=== PATIENT | female | born 1970 | race Asian ===

== ENCOUNTER 2016-06-03 07:32 | Emergency (ER) | payer BC, OTHER ==
[~2016-06-03] VITALS: Ht 154.9 cm; Wt 61.2 kg
[2016-06-03 07:48] VITALS: BP 150/100
[2016-06-03] MEDS ORDERED: IBUPROFEN 600 MG TABLET PO ONE ×2 (08:08→08:30)
== END 2016-06-03 08:14 | disposition home or self-care (01) ==
LOC: ER 07:38
DX: S16.1XXA Strain of muscle, fascia and tendon at neck level, initial encounter (principal); V43.52XA Car driver injured in collision with other type car in traffic accident, initial encounter; Y93.89 Activity, other specified; Y92.488 Other paved roadways as the place of occurrence of the external cause; Y99.9 Unspecified external cause status
CPT/HCPCS: 99282; A4606; Z7610

== ENCOUNTER 2017-04-30 07:21 | Outpatient (CLI) | payer BC ==
[2017-04-30 08:35] LABS: BASOPHILS % (AUTO) 0.4 % (0.0-2.0); EOSINOPHILS # (AUTO) 0.3 /CMM (0.0-0.7); EOSINOPHILS % (AUTO) 3.5 % (0.0-6.0); HEMATOCRIT 41 % (33-45); HEMOGLOBIN 13.4 g/dL (11.5-14.8); LYMPHOCYTES # (AUTO) 2.1 /CMM (0.8-4.8); LYMPHOCYTES % (AUTO) 20.7 % (20.0-44.0); MEAN CORPUSCULAR HEMOGLOBIN 29 PG (26.0-33.0); MEAN CORPUSCULAR HGB CONC 33 g/dl (31.0-36.0); MEAN CORPUSCULAR VOLUME 87 fL (82-100); MONOCYTES # (AUTO) 0.7 /CMM (0.1-1.30); MONOCYTES % (AUTO) 6.7 % (2.0-12.0); NEUTROPHILS # (AUTO) 6.8 /CMM (1.8-8.9); NEUTROPHILS % (AUTO) 68.7 % (43.0-81.0); PLATELET COUNT (AUTO) 476 /CMM (150-450); RDW COEFFICIENT OF VARIATION 13.7 (11.5-15.0); WHITE BLOOD COUNT (AUTO) 9.9 K/uL (4.3-11.0)
[2017-04-30 09:15] LABS: APPEARANCE,URINE SL CLOUDY (CLEAR); BILIRUBIN,URINE NEGATIVE (NEGATIVE); BLOOD, URINE 3+ Ery/uL (NEGATIVE); COLOR,URINE YELLOW (YELLOW); KETONES,URINE NEGATIVE (NEGATIVE); LEUKOCYTE ESTERASE ,URINE 2+ (NEGATIVE); NITRITE, URINE NEGATIVE (NEGATIVE); PH,URINE 6.5 (5.0-8.0); PROTEIN,URINE TRACE mg/dl (NEGATIVE); UGLUCOSE NEGATIVE (NEGATIVE); UROBILINOGEN,URINE 0.2 EU/dL (0.2)
[2017-04-30 09:53] LABS: WBC,URINE 21-50 /HPF (0-3)
[2017-04-30 09:54] LABS: BACTERIA,URINE Few /HPF (None Seen); SQUAMOUS EPITHELIAL CELL,UR Moderate /HPF (None Seen)
[2017-04-30 11:02] LABS: THYROID STIMULATING HORMONE 1.972 uIU/mL (0.358-3.74)
[2017-04-30 11:14] LABS: ALBUMIN 3.6 g/dL (3.4-5.0); BILIRUBIN,TOTAL 0.3 mg/dL (0.2-1.0); CALCIUM, SERUM 8.8 mg/dL (8.5-10.1); CREATININE 0.9 mg/dL (0.6-1.3); POTASSIUM 3.9 mmol/L (3.5-5.1); TOTAL PROTEIN, SERUM 8.1 g/dL (6.4-8.2)
== END 2017-04-30 23:59 | disposition home or self-care (01) ==
LOC: LAB 07:21
PROVIDERS: ATTEND Family Medicine
DX: Z00.01 Encounter for general adult medical examination with abnormal findings (principal); Z11.59 Encounter for screening for other viral diseases; R94.6 Abnormal results of thyroid function studies; R79.89 Other specified abnormal findings of blood chemistry
CPT/HCPCS: 36415; 80053-TC; 80061-TC; 81000-TC; 84439-TC; 84443-TC; 85025-TC; 86803; 87086-TC

== ENCOUNTER 2017-06-02 07:40 | Outpatient (CLI) | payer BC ==
[2017-06-02 08:13] LABS: APPEARANCE,URINE SL CLOUDY (CLEAR); BILIRUBIN,URINE NEGATIVE (NEGATIVE); BLOOD, URINE 3+ Ery/uL (NEGATIVE); COLOR,URINE YELLOW (YELLOW); KETONES,URINE NEGATIVE (NEGATIVE); LEUKOCYTE ESTERASE ,URINE 2+ (NEGATIVE); NITRITE, URINE NEGATIVE (NEGATIVE); PH,URINE 6.5 (5.0-8.0); PROTEIN,URINE TRACE mg/dl (NEGATIVE); UGLUCOSE NEGATIVE (NEGATIVE); UROBILINOGEN,URINE 0.2 EU/dL (0.2)
[2017-06-02 08:23] LABS: BASOPHILS % (AUTO) 0.5 % (0.0-2.0); EOSINOPHILS # (AUTO) 0.3 /CMM (0.0-0.7); EOSINOPHILS % (AUTO) 3.2 % (0.0-6.0); HEMATOCRIT 41 % (33-45); HEMOGLOBIN 13.6 g/dL (11.5-14.8); LYMPHOCYTES # (AUTO) 2.1 /CMM (0.8-4.8); LYMPHOCYTES % (AUTO) 22.9 % (20.0-44.0); MEAN CORPUSCULAR HEMOGLOBIN 29 PG (26.0-33.0); MEAN CORPUSCULAR HGB CONC 33 g/dl (31.0-36.0); MEAN CORPUSCULAR VOLUME 87 fL (82-100); MONOCYTES # (AUTO) 0.5 /CMM (0.1-1.30); NEUTROPHILS # (AUTO) 6.2 /CMM (1.8-8.9); NEUTROPHILS % (AUTO) 68.4 % (43.0-81.0); PLATELET COUNT (AUTO) 437 /CMM (150-450); RDW COEFFICIENT OF VARIATION 14.3 (11.5-15.0); RED BLOOD CELL COUNT(AUTO) 4.71 MIL/uL (4.0-5.2)
[2017-06-02 08:38] LABS: RBC,URINE 21-50 /HPF (0-2)
[2017-06-02 08:39] LABS: BACTERIA,URINE Few /HPF (None Seen); SQUAMOUS EPITHELIAL CELL,UR Few /HPF (None Seen); WBC,URINE 21-50 /HPF (0-3)
== END 2017-06-02 23:59 | disposition home or self-care (01) ==
LOC: LAB 07:40
PROVIDERS: ATTEND Family Medicine
DX: D47.3 Essential (hemorrhagic) thrombocythemia (principal); R31.9 Hematuria, unspecified
CPT/HCPCS: 36415; 81000-TC; 85025-TC; 87086-TC

== ENCOUNTER 2017-06-08 07:48 | Outpatient (CLI) | payer BC | END 2017-06-08 23:59 | disposition home or self-care (01) | LOC: LAB 07:48 | PROVIDERS: ATTEND Family Medicine | DX: Z11.3 Encounter for screening for infections with a predominantly sexual mode of transmission (principal); R87.612 Low grade squamous intraepithelial lesion on cytologic smear of cervix (LGSIL) | CPT/HCPCS: 88142 ==

== ENCOUNTER 2017-06-26 07:27 | Outpatient (CLI) | payer BC ==
[2017-06-26 07:52] LABS: BASOPHILS % (AUTO) 0.5 % (0.0-2.0); EOSINOPHILS # (AUTO) 0.3 /CMM (0.0-0.7); HEMATOCRIT 39 % (33-45); HEMOGLOBIN 13.2 g/dL (11.5-14.8); LYMPHOCYTES # (AUTO) 1.7 /CMM (0.8-4.8); LYMPHOCYTES % (AUTO) 23.2 % (20.0-44.0); MEAN CORPUSCULAR HEMOGLOBIN 29 PG (26.0-33.0); MEAN CORPUSCULAR HGB CONC 34 g/dl (31.0-36.0); MEAN CORPUSCULAR VOLUME 86 fL (82-100); MONOCYTES # (AUTO) 0.4 /CMM (0.1-1.30); MONOCYTES % (AUTO) 5.7 % (2.0-12.0); NEUTROPHILS # (AUTO) 4.9 /CMM (1.8-8.9); NEUTROPHILS % (AUTO) 66.6 % (43.0-81.0); PLATELET COUNT (AUTO) 409 /CMM (150-450); RDW COEFFICIENT OF VARIATION 14.3 (11.5-15.0); RED BLOOD CELL COUNT(AUTO) 4.55 MIL/uL (4.0-5.2); WHITE BLOOD COUNT (AUTO) 7.4 K/uL (4.3-11.0)
[2017-06-26 08:27] LABS: CREATININE 0.9 mg/dL (0.6-1.3)
[2017-06-26] MEDS ORDERED: IOHEXOL-300 100 ML VIAL IV ONE (08:53)
[2017-06-26] MEDS ORDERED: IV NS 0.9% 500 ML IV ONE (08:53)
== END 2017-06-26 23:59 | disposition home or self-care (01) ==
LOC: CT 07:27
PROVIDERS: ATTEND Family Medicine
DX: N13.30 Unspecified hydronephrosis (principal); N20.0 Calculus of kidney; D47.3 Essential (hemorrhagic) thrombocythemia
CPT/HCPCS: 36415; 74178; 82565; 84520; 85025; J7040; Q9967

== ENCOUNTER 2017-07-22 07:39 | Outpatient (CLI) | payer BC ==
[2017-07-27 09:36] LABS: SODIUM URINE, 24HR CALC 141 mmol/24H (40-220)
[2017-07-27 09:37] LABS: CHLORIDE U,24HR CALC 145 mmol/24H (110-250); POTASSIUM RNDM,URINE 16 mmol/L (25-125); POTASSIUM U,24HR CALC 35 mmol/24H (25-125)
== END 2017-07-22 23:59 | disposition home or self-care (01) ==
LOC: LAB 07:39
PROVIDERS: ATTEND Family Medicine
DX: N20.0 Calculus of kidney (principal)
CPT/HCPCS: 36415; 84133-TC; 84550-TC

== ENCOUNTER 2017-12-22 07:27 | Outpatient (CLI) | payer BC | END 2017-12-22 23:59 | disposition home or self-care (01) | LOC: LAB 07:27 | DX: N39.0 Urinary tract infection, site not specified (principal) | CPT/HCPCS: 87086-TC ==

== ENCOUNTER 2018-01-12 07:32 | Outpatient (CLI) | payer BC ==
[2018-01-12 08:06] LABS: BASOPHILS % (AUTO) 0.4 % (0.0-2.0); EOSINOPHILS % (AUTO) 4.5 % (0.0-6.0); HEMATOCRIT 42 % (33-45); HEMOGLOBIN 13.6 g/dL (11.5-14.8); LYMPHOCYTES # (AUTO) 1.6 /CMM (0.8-4.8); MEAN CORPUSCULAR HEMOGLOBIN 29 PG (26.0-33.0); MEAN CORPUSCULAR HGB CONC 32 g/dl (31.0-36.0); MEAN CORPUSCULAR VOLUME 89 fL (82-100); MONOCYTES # (AUTO) 0.5 /CMM (0.1-1.30); MONOCYTES % (AUTO) 6.4 % (2.0-12.0); NEUTROPHILS # (AUTO) 4.8 /CMM (1.8-8.9); NEUTROPHILS % (AUTO) 66.7 % (43.0-81.0); PLATELET COUNT (AUTO) 450 /CMM (150-450); RDW COEFFICIENT OF VARIATION 14.2 (11.5-15.0); RED BLOOD CELL COUNT(AUTO) 4.71 MIL/uL (4.0-5.2); WHITE BLOOD COUNT (AUTO) 7.2 K/uL (4.3-11.0)
[2018-01-12 08:23] LABS: ALBUMIN 3.4 g/dL (3.4-5.0); BILIRUBIN,TOTAL 0.3 mg/dL (0.2-1.0); CALCIUM, SERUM 8.1 mg/dL (8.5-10.1); CREATININE 0.8 mg/dL (0.6-1.3); POTASSIUM 3.7 mmol/L (3.5-5.1); TOTAL PROTEIN, SERUM 7.5 g/dL (6.4-8.2)
[2018-01-12 08:32] LABS: THYROID STIMULATING HORMONE 2.377 uIU/mL (0.358-3.74)
== END 2018-01-12 23:59 | disposition home or self-care (01) ==
LOC: LAB 07:32
PROVIDERS: ATTEND Family Medicine
DX: E78.2 Mixed hyperlipidemia (principal); E55.9 Vitamin D deficiency, unspecified
CPT/HCPCS: 36415; 80053-TC; 80061-TC; 82306; 84439-TC; 84443-TC; 85025-TC

== ENCOUNTER 2018-02-05 08:29 | Outpatient (CLI) | payer BC ==
[2018-02-05 09:45] LABS: BASOPHILS % (AUTO) 0.7 % (0.0-2.0); EOSINOPHILS % (AUTO) 3.6 % (0.0-6.0); HEMATOCRIT 43 % (33-45); HEMOGLOBIN 13.5 g/dL (11.5-14.8); LYMPHOCYTES # (AUTO) 1.5 /CMM (0.8-4.8); LYMPHOCYTES % (AUTO) 22.8 % (20.0-44.0); MEAN CORPUSCULAR HEMOGLOBIN 29 PG (26.0-33.0); MEAN CORPUSCULAR HGB CONC 32 g/dl (31.0-36.0); MEAN CORPUSCULAR VOLUME 89 fL (82-100); MONOCYTES # (AUTO) 0.4 /CMM (0.1-1.30); NEUTROPHILS # (AUTO) 4.2 /CMM (1.8-8.9); NEUTROPHILS % (AUTO) 65.9 % (43.0-81.0); PLATELET COUNT (AUTO) 416 /CMM (150-450); RDW COEFFICIENT OF VARIATION 13.7 (11.5-15.0); RED BLOOD CELL COUNT(AUTO) 4.75 MIL/uL (4.0-5.2); WHITE BLOOD COUNT (AUTO) 6.4 K/uL (4.3-11.0)
[2018-02-05 10:01] LABS: APPEARANCE,URINE SL CLOUDY (CLEAR); BILIRUBIN,URINE NEGATIVE (NEGATIVE); BLOOD, URINE 3+ Ery/uL (NEGATIVE); COLOR,URINE YELLOW (YELLOW); KETONES,URINE NEGATIVE (NEGATIVE); LEUKOCYTE ESTERASE ,URINE 2+ (NEGATIVE); NITRITE, URINE NEGATIVE (NEGATIVE); PH,URINE 6.5 (5.0-8.0); PROTEIN,URINE 1+ mg/dl (NEGATIVE); UGLUCOSE NEGATIVE (NEGATIVE); UROBILINOGEN,URINE 0.2 EU/dL (0.2)
[2018-02-05 10:03] LABS: ALBUMIN 3.5 g/dL (3.4-5.0); CALCIUM, SERUM 8.9 mg/dL (8.5-10.1); CREATININE 0.9 mg/dL (0.6-1.3); INR 0.91 (0.87-1.13); POTASSIUM 3.7 mmol/L (3.5-5.1); TOTAL PROTEIN, SERUM 7.6 g/dL (6.4-8.2)
[2018-02-05 10:28] LABS: SQUAMOUS EPITHELIAL CELL,UR Moderate /HPF (None Seen)
[2018-02-05 10:29] LABS: BACTERIA,URINE Moderate /HPF (None Seen)
[2018-02-05 10:30] LABS: WBC,URINE 21-50 /HPF (0-3)
[2018-02-05 10:31] LABS: BILIRUBIN,TOTAL 0.3 mg/dL (0.2-1.0)
== END 2018-02-05 23:59 | disposition home or self-care (01) ==
LOC: LAB 08:29
PROVIDERS: ATTEND Family Medicine
DX: Z01.818 Encounter for other preprocedural examination (principal)
CPT/HCPCS: 36415; 71046; 80053-TC; 81000-TC; 85025-TC; 85730-TC; 87086-TC

== ENCOUNTER 2020-01-10 07:55 | Outpatient (CLI) | payer BC ==
[2020-01-10 08:31] LABS: BASOPHILS # (AUTO) 0.1 /CMM (0.0-0.2); BASOPHILS % (AUTO) 0.6 % (0.0-2.0); EOSINOPHILS % (AUTO) 1.2 % (0.0-6.0); HEMATOCRIT 40 % (33-45); HEMOGLOBIN 12.8 g/dL (11.5-14.8); LYMPHOCYTES # (AUTO) 1.2 /CMM (0.8-4.8); LYMPHOCYTES % (AUTO) 10.7 % (20.0-44.0); MEAN CORPUSCULAR HGB CONC 32 g/dl (31.0-36.0); MEAN CORPUSCULAR VOLUME 86 fL (82-100); MONOCYTES # (AUTO) 0.8 /CMM (0.1-1.30); MONOCYTES % (AUTO) 7.1 % (2.0-12.0); NEUTROPHILS # (AUTO) 8.7 /CMM (1.8-8.9); NEUTROPHILS % (AUTO) 80.4 % (43.0-81.0); PLATELET COUNT (AUTO) 531 /CMM (150-450); RED BLOOD CELL COUNT(AUTO) 4.62 MIL/uL (4.0-5.2); WHITE BLOOD COUNT (AUTO) 10.8 K/uL (4.3-11.0)
[2020-01-10 09:51] LABS: THYROID STIMULATING HORMONE 2.101 uIU/mL (0.358-3.74)
[2020-01-11 10:11] LABS: FOLIC ACID 9.3 ng/mL (>3.0)
== END 2020-01-10 23:59 | disposition home or self-care (01) ==
LOC: LAB 07:55
PROVIDERS: ATTEND Family Medicine
DX: E78.5 Hyperlipidemia, unspecified (principal); E55.9 Vitamin D deficiency, unspecified; R73.9 Hyperglycemia, unspecified
CPT/HCPCS: 36415; 80061-TC; 82306; 84439-TC; 84443-TC; 85025-TC

== ENCOUNTER 2020-01-24 08:14 | Outpatient (CLI) | payer BC ==
[2020-01-24 09:30] LABS: BASOPHILS % (AUTO) 0.2 % (0.0-2.0); EOSINOPHILS % (AUTO) 0.4 % (0.0-6.0); HEMATOCRIT 41 % (33-45); HEMOGLOBIN 12.7 g/dL (11.5-14.8); LYMPHOCYTES # (AUTO) 1.2 /CMM (0.8-4.8); LYMPHOCYTES % (AUTO) 7.2 % (20.0-44.0); MEAN CORPUSCULAR HGB CONC 31 g/dl (31.0-36.0); MEAN CORPUSCULAR VOLUME 85 fL (82-100); MONOCYTES # (AUTO) 0.9 /CMM (0.1-1.30); MONOCYTES % (AUTO) 5.2 % (2.0-12.0); NEUTROPHILS # (AUTO) 14.4 /CMM (1.8-8.9); PLATELET COUNT (AUTO) 513 /CMM (150-450); RED BLOOD CELL COUNT(AUTO) 4.79 MIL/uL (4.0-5.2); WHITE BLOOD COUNT (AUTO) 16.5 K/uL (4.3-11.0)
[2020-01-24 09:55] LABS: ALBUMIN 2.8 g/dL (3.4-5.0); BILIRUBIN,TOTAL 0.5 mg/dL (0.2-1.0); CALCIUM, SERUM 8.2 mg/dL (8.5-10.1); CREATININE 0.8 mg/dL (0.6-1.3); POTASSIUM 3.8 mmol/L (3.5-5.1); TOTAL PROTEIN, SERUM 7.7 g/dL (6.4-8.2)
[2020-01-24 10:16] LABS: APPEARANCE,URINE CLEAR (CLEAR); BILIRUBIN,URINE NEGATIVE (NEGATIVE); BLOOD, URINE NEGATIVE Ery/uL (NEGATIVE); COLOR,URINE YELLOW (YELLOW); KETONES,URINE NEGATIVE (NEGATIVE); LEUKOCYTE ESTERASE ,URINE NEGATIVE (NEGATIVE); NITRITE, URINE NEGATIVE (NEGATIVE); PROTEIN,URINE 30 mg/dl (NEGATIVE); UGLUCOSE NEGATIVE (NEGATIVE); UROBILINOGEN,URINE 0.2 EU/dL (0.2)
[2020-01-24 11:00] LABS: BACTERIA,URINE None seen /HPF (None Seen); RBC,URINE 0-2 /HPF (0-2); SQUAMOUS EPITHELIAL CELL,UR Few /HPF (None Seen); WBC,URINE 0-2 /HPF (0-3)
== END 2020-01-24 23:59 | disposition home or self-care (01) ==
LOC: LAB 08:14
PROVIDERS: ATTEND Family Medicine
DX: E78.2 Mixed hyperlipidemia (principal); R10.9 Unspecified abdominal pain; R19.7 Diarrhea, unspecified
CPT/HCPCS: 36415; 80053-TC; 80061-TC; 81000-TC; 82150-TC; 83690-TC; 85025-TC; 86677

== ENCOUNTER 2020-02-02 09:15 | Outpatient (CLI) | payer BC ==
[2020-02-02 09:52] LABS: BASOPHILS % (AUTO) 0.3 % (0.0-2.0); EOSINOPHILS % (AUTO) 0.6 % (0.0-6.0); HEMATOCRIT 40 % (33-45); HEMOGLOBIN 12.7 g/dL (11.5-14.8); LYMPHOCYTES % (AUTO) 7.8 % (20.0-44.0); MEAN CORPUSCULAR HGB CONC 32 g/dl (31.0-36.0); MEAN CORPUSCULAR VOLUME 85 fL (82-100); MONOCYTES # (AUTO) 0.9 /CMM (0.1-1.30); NEUTROPHILS # (AUTO) 10.5 /CMM (1.8-8.9); NEUTROPHILS % (AUTO) 84.3 % (43.0-81.0); PLATELET COUNT (AUTO) 518 /CMM (150-450); RED BLOOD CELL COUNT(AUTO) 4.71 MIL/uL (4.0-5.2); WHITE BLOOD COUNT (AUTO) 12.4 K/uL (4.3-11.0)
[2020-02-02] MEDS ORDERED: IOHEXOL-350 100 ML VIAL IV ONE (09:58)
[2020-02-02] MEDS ORDERED: IV NS 0.9% 250 ML IV ONE (09:59)
[2020-02-02 10:07] LABS: CALCIUM, SERUM 8.4 mg/dL (8.5-10.1); CREATININE 0.8 mg/dL (0.6-1.3); POTASSIUM 3.8 mmol/L (3.5-5.1)
== END 2020-02-02 23:59 | disposition home or self-care (01) ==
LOC: LAB 09:15
PROVIDERS: ATTEND Family Medicine
DX: K80.20 Calculus of gallbladder without cholecystitis without obstruction (principal); N28.1 Cyst of kidney, acquired; N20.0 Calculus of kidney; N85.2 Hypertrophy of uterus; N85.4 Malposition of uterus; K76.0 Fatty (change of) liver, not elsewhere classified; J98.11 Atelectasis; I70.0 Atherosclerosis of aorta; M47.815 Spondylosis without myelopathy or radiculopathy, thoracolumbar region
CPT/HCPCS: 36415; 74177; 80048; 85025; J7050; Q9967

== ENCOUNTER 2020-02-06 10:41 | Outpatient (CLI) | payer BC ==
[2020-02-06 13:47] LABS: CALCIUM, SERUM 9.5 mg/dL (8.5-10.1); CREATININE 0.8 mg/dL (0.6-1.3)
== END 2020-02-06 23:59 | disposition home or self-care (01) ==
LOC: LAB 10:41
PROVIDERS: ATTEND Family Medicine
DX: R19.00 Intra-abdominal and pelvic swelling, mass and lump, unspecified site (principal)
CPT/HCPCS: 36415; 80048-TC

== ENCOUNTER 2020-02-07 08:30 | Outpatient (CLI) | payer BC ==
[2020-02-07] MEDS ORDERED: GADOTERATE MEGLUMINE 5 MMOL/10 ML VIAL IV ONE (08:31)
== END 2020-02-07 23:59 | disposition home or self-care (01) ==
LOC: MRI 08:30
PROVIDERS: ATTEND Family Medicine
DX: N85.2 Hypertrophy of uterus (principal); N20.0 Calculus of kidney; K76.89 Other specified diseases of liver
CPT/HCPCS: 72197; 74183; A9575

== ENCOUNTER 2020-02-10 14:17 | Inpatient (IN) | payer BC ==
[~2020-02-10] VITALS: Ht 154.9 cm; Wt 54.0 kg
--- NOTE | 2020-02-10 14:52 | NUR ---
U/S TECH AT BEDSIDE FOR PELVIC ULTRASOUND.
[2020-02-10 15:05] LABS: BASOPHILS % (AUTO) 0.3 % (0.0-2.0); EOSINOPHILS % (AUTO) 0.2 % (0.0-6.0); HEMATOCRIT 41 % (33-45); HEMOGLOBIN 13.2 g/dL (11.5-14.8); LYMPHOCYTES # (AUTO) 1.2 /CMM (0.8-4.8); LYMPHOCYTES % (AUTO) 7.5 % (20.0-44.0); MEAN CORPUSCULAR HGB CONC 32 g/dl (31.0-36.0); MEAN CORPUSCULAR VOLUME 84 fL (82-100); MONOCYTES # (AUTO) 1.3 /CMM (0.1-1.30); MONOCYTES % (AUTO) 7.7 % (2.0-12.0); NEUTROPHILS % (AUTO) 84.3 % (43.0-81.0); PLATELET COUNT (AUTO) 627 /CMM (150-450); RED BLOOD CELL COUNT(AUTO) 4.88 MIL/uL (4.0-5.2); WHITE BLOOD COUNT (AUTO) 16.6 K/uL (4.3-11.0)
--- NOTE | 2020-02-10 15:10 | NUR ---
CALLED NURSING SUP FOR M/S BED.
[2020-02-10 15:14] LABS: CALCIUM, SERUM 9.2 mg/dL (8.5-10.1); CARBON DIOXIDE 26 mmol/L (21-32); CHLORIDE 99 mmol/L (98-107); GLUCOSE 167 mg/dL (74-106); POTASSIUM 3.5 mmol/L (3.5-5.1); SODIUM SERUM 136 mmol/L (136-145); UREA NITROGEN, BLOOD 13 mg/dL (7-18)
[2020-02-10 15:20] LABS: ALANINE AMINOTRANSFERASE 14 U/L (12-78); ALBUMIN 2.9 g/dL (3.4-5.0); ALKALINE PHOSPHATASE 63 U/L (46-116); ASPARTATE AMINOTRANSFERASE 15 U/L (15-37); BILIRUBIN,DIRECT 0.1 mg/dL (0.0-0.2); BILIRUBIN,TOTAL 0.3 mg/dL (0.2-1.0); LIPASE 95 U/L (73-393); TOTAL PROTEIN, SERUM 8.4 g/dL (6.4-8.2)
--- NOTE | 2020-02-10 15:41 | NUR ---
NURSING SUP GAVE M/S BED [id number].
[2020-02-10] MEDS ORDERED: ENOXAPARIN SODIUM 30 MG/0.3 ML DISP.SYRIN SQ SCH (16:00)
[2020-02-10] MEDS ORDERED: MAGNESIUM HYDROXIDE 30 ML UDC PO PRN (16:00)
[2020-02-10] MEDS ORDERED: ONDANSETRON HCL/PF 4 MG/2 ML VIAL IVP PRN (16:00)
[2020-02-10] MEDS ORDERED: ACETAMINOPHEN 325 MG TABLET PO PRN (16:00)
[2020-02-10] MEDS ORDERED: HYDROCODONE/APAP 5/325MG TABLET PO PRN (16:00)
[2020-02-10] MEDS ORDERED: Z GUARD REMEDY 2 OZ OINT TP PRN (16:00)
[2020-02-10] MEDS ORDERED: MAG HYDROX/AL HYDROX/SIMETH 30 ML UDC PO PRN (16:00)
[2020-02-10] MEDS ORDERED: ZOLPIDEM TARTRATE 5 MG TABLET PO PRN (16:00)
--- NOTE | 2020-02-10 16:06 | NUR ---
DR CLAIRE QURESHI
--- NOTE | 2020-02-10 16:15 | NUR ---
REPORT GIVEN TO DAMIEN AT M/S AWAITNG TRANSFER TO FLOOR.
[2020-02-10] MEDS ORDERED: MORPHINE SULFATE INJ 2 MG/ML DISP.SYRIN IV PRN (16:30)
[2020-02-10 17:00] VITALS: BP 132/81
--- NOTE | 2020-02-10 17:00 | NUR ---
RN ADMITTING NOTES RECEIVED PATIENT VIA GURNEY FROM ER, A/OX4,ON ROOM AIR, TOLERATING WELL, NO SOB OR DISTRESS NOTED, DENIES PAIN OR DISCOMFORT AT THIS TIME, SKIN IS INTACT, IV LINE ON L AC NOTED, PATENT, FLUSHED AND INTACT. PATIENT IS AMBULATORY, NPO STATUS NOTED SAFETY MEASURES IN PLACE, CALL LIGHT IN REACH, BED IN LOWEST POSITION, WILL CONT TO MONITOR
[2020-02-10] MEDS ORDERED: ENOXAPARIN SODIUM 40 MG/0.4 ML DISP.SYRIN SQ SCH ×2 (17:10→21:00)
--- NOTE | 2020-02-10 18:06 | NUR ---
WILL HOLD LOVENOX PER FOLLOWING POSSIBLE COLONOSCOPY TOMORROW,
[2020-02-10] MEDS: IV NS 0.9% 1,000 ML IV PRN (18:07)
--- NOTE | 2020-02-10 19:14 | NUR ---
RN CLOSING NOTES Patient remains in bed, A?Ox4, tolerating IV hydration well, running NS @ 75cc/hr, patent and intact,safe and comfortable, safety measures in place, call light in reach, HOB elevated, bed in lowest position, will endorse to PM shift RN for XAVI
[2020-02-10 20:00] VITALS: BP 129/89
--- NOTE | 2020-02-10 20:00 | NUR ---
MS/RN OPENING NOTE Patient awake in bed. A/O x4, ambulatory. Breathing even, clear, unlabored. No signs of acute distress or SOB. No JVD. CRP <3seconds. Skin is warm pink, dry, appropriate for ethnicity, intact. IV site LAC 20g, patent and intact, no signs of infiltration or redness. Abdomen round, soft, non-tender. Patient is constipated. Patient is NPO per procedure. Patient voids via BRP, voiding clear yellow urine. Bed in low position, wheels locked, side rails up x2, call light within reach.
[2020-02-10] MEDS: VANCOMYCIN 1 GM in IV D5W 250 ML IV SCH (20:38)
[2020-02-10] MEDS: MEROPENEM 1 G in IV NS 0.9% 100 ML IV SCH (21:34)
--- NOTE | 2020-02-10 22:25 | NUR ---
MS/RN NOTE Patient developed redness and pruritis after 1 completed dose of vancomycin. IV infusion stopped. No SOB or respiratory distress noted. VS: BP 124/80 T98.9 P93 R17 L9flo73%. Dr. Call notified. Verbal order received: 1 dose 15mg benadryl and continue vancomycin. Order read back and confirmed by hospitalist. Will continue to monitor.
[2020-02-10] MEDS ORDERED: diphenhydrAMINE HCL 50 MG/ML VIAL IV PRN (22:30)
[2020-02-10 23:41] VITALS: BP 129/89
[2020-02-11] MEDS ORDERED: PIPERACILLIN /TAZOBACTAM 3.375 G in IV D5W 50 ML IV SCH ×2
[2020-02-11] MEDS: MEROPENEM 1 G in IV NS 0.9% 100 ML IV SCH ×3 (04:00→21:17)
--- NOTE | 2020-02-11 06:07 | NUR ---
MS/RN CLOSING NOTE Patient awake in bed. A/O x4, ambulatory. Breathing even, clear, unlabored. No signs of acute distress or SOB. IV site LAC 20g, patent and intact, no signs of infiltration or redness, running NS @ 75 ml/hr. Patient is constipated. Patient is NPO per procedure. Patient voids via BRP, voiding clear yellow urine 4x. Bed in low position, wheels locked, side rails up x2, call light within reach. Will endorse to oncoming nurse.
[2020-02-11 06:37] LABS: BASOPHILS % (AUTO) 0.3 % (0.0-2.0); EOSINOPHILS % (AUTO) 0.4 % (0.0-6.0); HEMATOCRIT 37 % (33-45); HEMOGLOBIN 11.7 g/dL (11.5-14.8); MEAN CORPUSCULAR HGB CONC 32 g/dl (31.0-36.0); MEAN CORPUSCULAR VOLUME 84 fL (82-100); MONOCYTES # (AUTO) 1.1 /CMM (0.1-1.30); MONOCYTES % (AUTO) 8.4 % (2.0-12.0); NEUTROPHILS # (AUTO) 10.8 /CMM (1.8-8.9); NEUTROPHILS % (AUTO) 82.9 % (43.0-81.0); PLATELET COUNT (AUTO) 544 /CMM (150-450); RED BLOOD CELL COUNT(AUTO) 4.44 MIL/uL (4.0-5.2)
[2020-02-11 07:27] LABS: ALBUMIN 2.3 g/dL (3.4-5.0); BILIRUBIN,TOTAL 0.2 mg/dL (0.2-1.0); CALCIUM, SERUM 7.9 mg/dL (8.5-10.1); CREATININE 0.8 mg/dL (0.6-1.3); MAGNESIUM 2.3 mg/dL (1.8-2.4); PHOSPHORUS 4.6 mg/dL (2.5-4.9); POTASSIUM 3.9 mmol/L (3.5-5.1); TOTAL PROTEIN, SERUM 6.9 g/dL (6.4-8.2)
--- NOTE | 2020-02-11 07:30 | NUR ---
RN OPENING NOTES Patient present in bed, A/Ox4, ambulatory, able to make needs know, on room air, no SOB or resp distress noted at this time,SPO2 is 98%, denies pain or discomfort. Patient is NPO due following CT scan procedure, tolerating well, receiving NS @75 cc/hr through IV line located on Left AC G20, patent, tolerating well, intact. Bowel sounds is hypoactive in four quadrants, denies BM today, complains of constipation. Consent form for CT scan in the chart. Safety measures in place, call light in reach, bed in lowest position, will continue to monitor
[2020-02-11 08:00] VITALS: BP 109/70
[2020-02-11] MEDS: IV NS 0.9% 1,000 ML IV PRN (12:57)
--- NOTE | 2020-02-11 13:07 | NUR ---
patient went to CT scan
--- NOTE | 2020-02-11 13:20 | NUR ---
Patient returned from CXT scan not done,per Radiology team, clarification need about possibility to perform rectal CT scan w contrast at [facility]
--- NOTE | 2020-02-11 13:48 | NUR ---
Sushant bruce at bed site explaining to patient rectal CT contract procedure
[2020-02-11] MEDS ORDERED: DIATR MEGLU/DIATRIZOATE SODIUM 120 ML BOTTLE (GASTROGRAPHIN) ONE (14:22)
--- NOTE | 2020-02-11 14:22 | NUR ---
Holding Vanco, patient is going to have CT scan, pharmacy aware
[2020-02-11] MEDS: VANCOMYCIN 1 GM in IV D5W 250 ML IV SCH (15:57)
[2020-02-11 16:00] VITALS: BP 121/84
--- NOTE | 2020-02-11 16:30 | NUR ---
IV line infiltrated, removed, will start new line
--- NOTE | 2020-02-11 16:45 | NUR ---
R hand IV line G22, intact and patent
--- NOTE | 2020-02-11 19:04 | NUR ---
RN CLOSING NOTES Patient remains in bed, A/Ox4, tolerating IV hydration well, running NS @ 75cc/hr, patent and intact,safe and comfortable. Patient is waiting for CT results, still NPO, since yesterday, called RADIOLOGY and ask to promote her results for translation in order to change her diet status, safety measures in place, call light in reach, HOB elevated, bed in lowest position, will endorse to PM shift RN for XAVI
[2020-02-11 20:00] VITALS: BP 134/89
--- NOTE | 2020-02-11 21:00 | NUR ---
RN NOTES PATIENT IN BED ALERT AND ORIENTED X4, STABLE ON ROOM AIR, NO COMPLAIN OF EPIGASTRIC PAIN, CT ABD/PELVIS COMPLETED WITH RESULTS POSTED. PATIENT IS NPO AND VERY HUNGRY NOW. NOTIFIED DR. SOFIA TO CHANGE DIET. NEW ORDER OF CLEAR LIQUID DIET. NO NAUSEA/VOMITING.
[2020-02-12] MEDS ORDERED: VANCOMYCIN 1 GM in IV D5W 250 ML IV SCH (02:00)
--- NOTE | 2020-02-12 03:03 | NUR ---
RN NOTES PATIENT HAD BM, STOOL IS SMALL AND SOFT AND FEATHERY. PATIENT REPORTED FEELING BETTER
[2020-02-12] MEDS: VANCOMYCIN 1 GM in IV D5W 250 ML IV SCH ×2 (03:37→16:13)
[2020-02-12] MEDS: MEROPENEM 1 G in IV NS 0.9% 100 ML IV SCH ×3 (04:59→20:00)
[2020-02-12] MEDS ORDERED: SORBITOL SOLUTION 30 ML PO ONE (06:00)
--- NOTE | 2020-02-12 06:15 | NUR ---
RN NOTES ALERT AND ORIENTED X4, ROOM AIR, NO EPIGASTRIC PAIN, CLEAR LIQUID DIET, TOLERATING, NO N/V, X3 SOFT STOOL, VOIDING WELL, NS AT 75 ML/HR, VANCOMYCIN AND MERREM IVPB, CT ABD/PELVIS AND US PELVIS DONE WITH RESULTS POSTED. FOR GYNECOLOGY CONSULT AND GI CONSULT FOR COLONOSCOPY.
[2020-02-12 06:57] LABS: BASOPHILS # (AUTO) 0.1 /CMM (0.0-0.2); BASOPHILS % (AUTO) 0.5 % (0.0-2.0); EOSINOPHILS % (AUTO) 1.5 % (0.0-6.0); HEMATOCRIT 36 % (33-45); HEMOGLOBIN 11.4 g/dL (11.5-14.8); LYMPHOCYTES # (AUTO) 1.2 /CMM (0.8-4.8); MEAN CORPUSCULAR HGB CONC 32 g/dl (31.0-36.0); MEAN CORPUSCULAR VOLUME 85 fL (82-100); MONOCYTES # (AUTO) 0.8 /CMM (0.1-1.30); MONOCYTES % (AUTO) 7.8 % (2.0-12.0); NEUTROPHILS # (AUTO) 8.5 /CMM (1.8-8.9); NEUTROPHILS % (AUTO) 79.2 % (43.0-81.0); PLATELET COUNT (AUTO) 527 /CMM (150-450); RED BLOOD CELL COUNT(AUTO) 4.25 MIL/uL (4.0-5.2); WHITE BLOOD COUNT (AUTO) 10.8 K/uL (4.3-11.0)
[2020-02-12 07:39] LABS: CALCIUM, SERUM 8.1 mg/dL (8.5-10.1); CREATININE 0.7 mg/dL (0.6-1.3); POTASSIUM 3.7 mmol/L (3.5-5.1)
[2020-02-12 08:00] VITALS: BP 117/76
--- NOTE | 2020-02-12 08:14 | NUR ---
MS/RN OPENING NOTES RECEIVED PATIENT ON BED. ALERT AND ORIENTED X 4. PATIENT IN NO APPARENT RESPIRATORY DISTRESS NOTED. PATIENT NO COMPLAINED OF PAIN AT THIS TIME. WILL CONTINUE TO MONITOR.
[2020-02-12] MEDS: IV NS 0.9% 1,000 ML IV PRN (09:35)
[2020-02-12 12:00] VITALS: BP 132/81
[2020-02-12 16:00] VITALS: BP 124/79
--- NOTE | 2020-02-12 16:04 | NUR ---
MS/RN NOTES JULIA (HOSE BUILDER) ORDER TO ADVANCE THE DIET, NOTED AND CARRIED OUT.
--- NOTE | 2020-02-12 18:42 | NUR ---
MS/RN NOTES DR. ALDANA ORDER NPO EXCEPT MEDS, 1 GAL GOLYTLY, 5MG REGLAN Q 4HOURS PRN R/T BOWEL PROBLEM, 120ML SORBITOL ONCE AT 6AM FOR CONSTIPATION, COLONOSCOPY CONSENT. NOTED AND CARRIED OUT.
[2020-02-12] MEDS ORDERED: METOCLOPRAMIDE HCL 10 MG/2 ML VIAL IV PRN (19:00)
[2020-02-12] MEDS ORDERED: PEG 3350/NA SULF,BICARB,CL/KCL 4,000 ML BOTTLE PO ONE (19:00)
--- NOTE | 2020-02-12 19:04 | NUR ---
MS/RN CLOSING NOTES PATIENT IS ON BED, ALERT AND ORIENTED X4. PATIENT DENIES PAIN AT THIS TIME. PATIENT IN NO APPARENT RESPIRATORY DISTRESS NOTED. IV ACCESS AT RIGHT HAND # 22G WITH IV FLUID OF NS 1L AT 75ML//HR ON AND INFUSING WELL. SEEN AN EXAMINED BY MD WITH ORDERS MADE AND CARRIED OUT. SAFETY PRECAUTION WAS IN PLACED. BED IN LOWEST POSITION. SIDE RAILS UP X2. ALL NEEDS WAS ATTENDED. CALL LIGHTS WITHIN REACH. COLONOSCOPY CONSENT WAS SIGN AND ATTACH TO CHART, COLONOSCOPY PROCEDURE AT 1130. WILL ENDORSED TO QUALITY ASSURANCE INTERN FOR XAVI.
--- NOTE | 2020-02-12 19:45 | NUR ---
MS RN OPENING NOTES PATIENT RECEIVED RESTING IN BED COMFORTABLY, A/OX4, BREATHING EVEN AND UNLABORED; TOLERATING ROOM AIR WELL; NO SOB NOTED; PATIENT ABLE TO MAKE NEEDS KNOWN; PATIENT AWARE SHE WILL BE NPO MIDNIGHT FOR COLONOSCOPY PROCEDURE 11:30 02/13/20; DR. PETERSEN AT BEDSIDE, RECTAL EXAM PERFORMED; PATIENT INFORMED POSSIBLE RECTAL CANCER; PER MD, AWAIT COLONOSCOPY RESULTS; ALL PATIENT'S QUESTIONS REGARDING COLONOSCOPY AND POSSIBLE CANCER, AND NEXT STEPS WERE ANSWERED BY MD AND PATIENT VERBALIZED UNDERSTANDING; PATIENT AWARE SHE HAS TO FINISH GOLYTELY PRIOR TO MIDNIGHT; SAFETY PRECAUTIONS IMPLEMENTED; BED LOCKED IN LOW POSITION; SIDE RAILSX2; CALL LIGHT WITHIN EASY REACH; WILL CONT TO MONITOR
[2020-02-12 20:00] VITALS: BP 149/93
--- NOTE | 2020-02-12 22:46 | NUR ---
MS RN NOTES SPOKE WITH DR. KWAME MC, PER MD, ORDERED CT CAP WITH CONTRAST AND MRI WITHOUT CONTRAST; MD ALSO SPOKE WITH PATIENT REGARDING PROCEDURES ORDERED; PATIENT VERBALIZED UNDERSTANDING; CONSENTS SIGNED
[2020-02-13] VITALS (7 sets, daily range): BP systolic 114–143; BP diastolic 76–88
[2020-02-13] MEDS: VANCOMYCIN 1 GM in IV D5W 250 ML IV SCH ×2 (03:06→16:41)
[2020-02-13] MEDS: MEROPENEM 1 G in IV NS 0.9% 100 ML IV SCH ×3 (04:49→21:46)
--- NOTE | 2020-02-13 06:18 | NUR ---
MS RN NOTES PATIENT R HAND # 22 IV SITE, MILD INFILTRATION/REDNESS NOTED; PATIENT DENIES PAIN; IV SITE REMOVED, TIP STILL INTACT; NEW IV ACCESS OBTAINED; L FA # 20, FLUSHING WELL; TOLERATING IVF WELL; WILL CONT TO MONITOR
[2020-02-13 07:01] LABS: BASOPHILS % (AUTO) 0.4 % (0.0-2.0); EOSINOPHILS % (AUTO) 3.4 % (0.0-6.0); HEMATOCRIT 38 % (33-45); HEMOGLOBIN 12.3 g/dL (11.5-14.8); LYMPHOCYTES # (AUTO) 1.1 /CMM (0.8-4.8); LYMPHOCYTES % (AUTO) 10.3 % (20.0-44.0); MEAN CORPUSCULAR HGB CONC 32 g/dl (31.0-36.0); MEAN CORPUSCULAR VOLUME 84 fL (82-100); MONOCYTES # (AUTO) 0.6 /CMM (0.1-1.30); MONOCYTES % (AUTO) 5.6 % (2.0-12.0); NEUTROPHILS # (AUTO) 8.3 /CMM (1.8-8.9); NEUTROPHILS % (AUTO) 80.3 % (43.0-81.0); PLATELET COUNT (AUTO) 536 /CMM (150-450); RED BLOOD CELL COUNT(AUTO) 4.53 MIL/uL (4.0-5.2); WHITE BLOOD COUNT (AUTO) 10.4 K/uL (4.3-11.0)
--- NOTE | 2020-02-13 07:04 | NUR ---
MS RN CLOSING NOTES PATIENT RESTING IN BED COMFORTABLY; A/OX4, BREATHING EVEN AND UNLABORED; NPO STATUS MAINTAINED FOR COLONOSCOPY PROCEDURE IN AM; WILL INFORM DAY SHIFT; PATIENT ABLE TO MAKE NEEDS KNOWN; L FA #20, INTACT AND PATENT; PATIENT AMBULATORY WITH STEADY GAIT; ALL NEEDS RENDERED; SAFETY PRECAUTIONS IMPLEMENTED; BED LOCKED IN LOW POSITION; SIDE RAILSX2; CALL LIGHT WITHIN EASY REACH; WILL ENDORSE XAVI TO ONCOMING SHIFT
[2020-02-13 07:17] LABS: CALCIUM, SERUM 8.3 mg/dL (8.5-10.1); CREATININE 0.7 mg/dL (0.6-1.3); POTASSIUM 3.8 mmol/L (3.5-5.1)
--- NOTE | 2020-02-13 07:55 | NUR ---
MS RON OPEN NOTES PATIENT IS A/O X 4 WITH NO SIGNS OF DISTRESS IN ROOM AIR. IV L FA #20G RUNNING NS AT 75ML/HR. WITH NO COMPLAIN OF PAIN AT THIS MOMENT. NPO CURRENTLY. SAFETY MEASURES ARE APPLIED, BED IS IN LOW AND LOCKED POSITION, SIDE RAILS UP X 2. CALL LIGHT WITHIN REACH. WILL CONTINUE TO MONITOR.
--- NOTE | 2020-02-13 12:20 | NUR ---
PATIENT LEFT TO OR. VIA GURNEY.
--- NOTE | 2020-02-13 14:45 | NUR ---
PATIENT RETURNED FROM OR VIA GURNEY A/O X 4 CALM WITH NO SIGNS IF DISTRESS IN ROOM AIR. NO COMPLAIN OF PAIN AT THIS TIME. SAFETY MEASURES APPLIED BED LOCKED , SIDE RAILS UP X 2 CALL LIGHT WITHIN REACH. WILL CONTINUE TO MONITOR.
--- NOTE | 2020-02-13 19:30 | NUR ---
MS RN CLOSE NOTES PATIENT IS A/O X 4 WITH NO SIGNS OF DISTRESS IN ROOM AIR. IV L FA #20G RUNNING NS AT 75ML/HR. WITH NO COMPLAIN OF PAIN AT THIS MOMENT. PATIENT REMAINED STABLE THROUGH OUT SHIFT. PATIENT KEPT CLEAN AND DRY. ALL NEEDS, CARE, TREATMENT AND MEDICATIONS ADMINISTERED ANTICIPATED PER ORDER. SAFETY MEASURES ARE APPLIED, BED IS LOW AND LOCKED. SIDE RAILS UP X 2 FOR SAFETY, CALL LIGHT WITHIN REACH. WILL ENDORSE TO THE NEXT ECLECTIC DOCTOR.
--- NOTE | 2020-02-13 19:35 | NUR ---
MS/RN OPENING NOTES: RECEIVED PT REPORT FROM ARIADNE MOSS FORM DAY SHIFT. PATIENT IS A/O X 4. VERBALLY RESPONSIVE AND ABLE TO MAKE NEEDS KNOWN. NO S/S OF ACUTE DISTRESS. NO C/O PAIN AT THIS TIME. NO SOB. TOLERATING ROOM AIR WELL. IV ON THE L FA #20G RUNNING NS AT 75ML/HR. SAFETY MEASURES ARE IN PLACE. BED IS LOW AND LOCKED. SIDE RAILS UP X 2 FOR SAFETY, CALL LIGHT WITHIN REACH. WILL KEEP MONITORING THROUGHOUT THE SHIFT.
[2020-02-13] MEDS: IV NS 0.9% 1,000 ML IV PRN (20:27)
[2020-02-14] MEDS: VANCOMYCIN 1 GM in IV D5W 250 ML IV SCH ×2 (04:00→18:06)
[2020-02-14] MEDS: MEROPENEM 1 G in IV NS 0.9% 100 ML IV SCH ×3 (05:00→20:15)
[2020-02-14 07:07] LABS: CARBOHYDRATE AG 19-9 <2 U/mL (0-35)
--- NOTE | 2020-02-14 07:40 | NUR ---
MS/RN CLOSING NOTES: PT REMAINS A/O X 4. VERBALLY RESPONSIVE. NO S/S OF ACUTE DISTRESS. NO C/O PAIN AT THIS TIME. NO SOB. TOLERATING ROOM AIR WELL. IV ON THE L FA #20G RUNNING NS AT 75ML/HR. SAFETY MEASURES ARE IN PLACE. BED IS LOW AND LOCKED. SIDE RAILS UP X 2 FOR SAFETY, CALL LIGHT WITHIN REACH. ALL NURSING NEEDS MET AND RENDERED. ALL DUE MEDS GIVEN ORDERED. ENDORSED TO DAY SHIFT FOR XAVI.
[2020-02-14 08:00] VITALS: BP 128/78
[2020-02-14 08:22] LABS: CALCIUM, SERUM 8.2 mg/dL (8.5-10.1); CREATININE 0.7 mg/dL (0.6-1.3); POTASSIUM 3.8 mmol/L (3.5-5.1)
--- NOTE | 2020-02-14 14:00 | NUR ---
NURSES NOTES Patient LT FA 20g IV painful and reddened. D/C line. New IV inserted in RT forearm 20g.
[2020-02-14 16:00] VITALS: BP 119/78
--- NOTE | 2020-02-14 19:20 | NUR ---
MS ARIADNE OPEN NOTES PATIENT IS LAYING IN BED WATCHING TV. A/O X4. ON RA, NO SOB/ ACUTE RESPIRATORY DISTRESS NOTED. IV IN R FOREARM #20G IS PATENT AND INTACT RUNNING NS @75MLS/HR. PATIENT DENIES ANY PAIN AT THE MOMENT. PT IS AMBULATORY. BED IS IN LOWEST LOCKED POSITION WITH SIDE RAILS UP X3, SEMI FOWLERS. CALL LIGHT IS WITHIN REACH. WILL CONTINUE TO MONITOR.
[2020-02-14 20:00] VITALS: BP 136/87
[2020-02-15] MEDS: VANCOMYCIN 1 GM in IV D5W 250 ML IV SCH (04:51)
[2020-02-15] MEDS: IV NS 0.9% 1,000 ML IV PRN (05:35)
[2020-02-15] MEDS: MEROPENEM 1 G in IV NS 0.9% 100 ML IV SCH ×2 (06:05→15:06)
--- NOTE | 2020-02-15 06:57 | NUR ---
MS RN CLOSE NOTES PATIENT IS LAYING IN BED. A/O X4. ON RA, NO SOB/ ACUTE RESPIRATORY DISTRESS NOTED. IV IN RIGHT FOREARM #20G IS PATENT AND INTACT RUNNING NS @ 75MLS/HR. ALL DUE ANTIBIOTICS GIVEN. PATIENT HAS NO COMPLAINTS OF PAIN. IS ABLE TO AMBULATE. BED IS IN LOWEST LOCKED POSITION WITH SIDE RAILS UP X2, SEMI FOWLERS. CALL LIGHT IS WITHIN REACH. WILL ENDORSE TO AM NURSE.
[2020-02-15 07:23] LABS: BASOPHILS # (AUTO) 0.1 /CMM (0.0-0.2); BASOPHILS % (AUTO) 0.6 % (0.0-2.0); HEMATOCRIT 36 % (33-45); HEMOGLOBIN 11.7 g/dL (11.5-14.8); LYMPHOCYTES # (AUTO) 1.3 /CMM (0.8-4.8); LYMPHOCYTES % (AUTO) 15.3 % (20.0-44.0); MEAN CORPUSCULAR HGB CONC 32 g/dl (31.0-36.0); MEAN CORPUSCULAR VOLUME 84 fL (82-100); MONOCYTES # (AUTO) 0.4 /CMM (0.1-1.30); MONOCYTES % (AUTO) 5.2 % (2.0-12.0); NEUTROPHILS # (AUTO) 6.5 /CMM (1.8-8.9); NEUTROPHILS % (AUTO) 75.9 % (43.0-81.0); PLATELET COUNT (AUTO) 545 /CMM (150-450); RED BLOOD CELL COUNT(AUTO) 4.33 MIL/uL (4.0-5.2); WHITE BLOOD COUNT (AUTO) 8.6 K/uL (4.3-11.0)
--- NOTE | 2020-02-15 07:40 | NUR ---
REPORT RECEIVED FROM ARIADNE LAMAR
[2020-02-15 07:50] LABS: CALCIUM, SERUM 8.3 mg/dL (8.5-10.1); CREATININE 0.7 mg/dL (0.6-1.3); POTASSIUM 3.6 mmol/L (3.5-5.1)
[2020-02-15 08:00] VITALS: BP 123/80
--- NOTE | 2020-02-15 12:00 | NUR ---
PATIENT AWAKE , ALERT, ORIENTED X4. NO COMPLAINS OF PAIN, SOB, OR DISCOMFORT AT THIS TIME. PATIENT AMBULATES TO THE BATHROOM WITH A STEADY GAIT AROUND EVERY 30 MIN.
[2020-02-15 16:00] VITALS: BP 123/80
--- NOTE | 2020-02-15 17:00 | NUR ---
PATIENT HAS A DISCHARGE ORDER HOME. EDUCATIONAL MATERIAL PROVIDED AND PATIENT EDUCATED ON HOME REGIMEN AND FOLLOW UP WITH PCP INSTRUCTIONS. PATIENT VERBALIZED UNDERSTANDING.
--- NOTE | 2020-02-15 17:40 | NUR ---
PATIENT STATED THAT HER SISTER CAN PICK HER UP BETWEEN 1900 AND "MORE LIKE 1930". ALL PAPERWORK COMPLETED AND SIGNED.
== END 2020-02-15 18:42 | disposition home or self-care (01) | DRG 375 ==
LOC: ER 14:19 → MED 16:24
PROVIDERS: ADMIT Nurse Practitioner Acute Care; ATTEND Internal Medicine
DX: C19 Malignant neoplasm of rectosigmoid junction (principal); E44.0 Moderate protein-calorie malnutrition; C77.5 Secondary and unspecified malignant neoplasm of intrapelvic lymph nodes; K59.00 Constipation, unspecified; D64.9 Anemia, unspecified; Z88.1 Allergy status to other antibiotic agents; R73.9 Hyperglycemia, unspecified; D72.829 Elevated white blood cell count, unspecified; Z87.442 Personal history of urinary calculi; N20.0 Calculus of kidney; D47.3 Essential (hemorrhagic) thrombocythemia; D25.9 Leiomyoma of uterus, unspecified; K57.90 Diverticulosis of intestine, part unspecified, without perforation or abscess without bleeding
CPT/HCPCS: 36415; 71260-TC; 72197-TC; 76856-TC; 80048-TC; 80053-TC; 80076-TC; 80202-TC; 82378; 83605-TC; 83690-TC; 83735-TC; 84100-TC; 84484-TC; 84703-TC; 85025-TC; 85610-TC; 85730-TC; 86301; 86850-TC; 87081-TC; 88305-TC; C9803-CS; G0378; J1650; J2185; J2543; J2704; J3370; J3490; J7030; J7060; Q9963

== ENCOUNTER 2020-02-23 14:47 | Outpatient (CLI) | payer BC ==
[2020-02-23 15:58] LABS: BASOPHILS # (AUTO) 0.1 /CMM (0.0-0.2); BASOPHILS % (AUTO) 0.4 % (0.0-2.0); EOSINOPHILS % (AUTO) 0.9 % (0.0-6.0); HEMATOCRIT 37 % (33-45); HEMOGLOBIN 11.9 g/dL (11.5-14.8); LYMPHOCYTES # (AUTO) 1.4 /CMM (0.8-4.8); LYMPHOCYTES % (AUTO) 11.5 % (20.0-44.0); MEAN CORPUSCULAR HGB CONC 32 g/dl (31.0-36.0); MEAN CORPUSCULAR VOLUME 84 fL (82-100); MONOCYTES % (AUTO) 8.1 % (2.0-12.0); NEUTROPHILS # (AUTO) 9.7 /CMM (1.8-8.9); NEUTROPHILS % (AUTO) 79.1 % (43.0-81.0); PLATELET COUNT (AUTO) 487 /CMM (150-450); RED BLOOD CELL COUNT(AUTO) 4.45 MIL/uL (4.0-5.2); WHITE BLOOD COUNT (AUTO) 12.2 K/uL (4.3-11.0)
[2020-02-23 16:21] LABS: ALBUMIN 2.8 g/dL (3.4-5.0); BILIRUBIN,TOTAL 0.2 mg/dL (0.2-1.0); CALCIUM, SERUM 8.4 mg/dL (8.5-10.1); CREATININE 0.9 mg/dL (0.6-1.3); POTASSIUM 3.7 mmol/L (3.5-5.1); TOTAL PROTEIN, SERUM 7.6 g/dL (6.4-8.2)
== END 2020-02-23 23:59 | disposition home or self-care (01) ==
LOC: LAB 14:47
PROVIDERS: ATTEND Family Medicine
DX: C20 Malignant neoplasm of rectum (principal); D64.9 Anemia, unspecified; R59.1 Generalized enlarged lymph nodes
CPT/HCPCS: 36415; 80053-TC; 82378; 85025-TC

== ENCOUNTER 2020-03-05 14:21 | Inpatient (IN) | payer BC ==
[~2020-03-05] VITALS: Ht 154.9 cm; Wt 53.1 kg
[2020-03-05 15:45] VITALS: BP 120/72
--- NOTE | 2020-03-05 16:00 | NUR ---
BIBS FROM HOME TO ER BED 1. AAOX4. NOT IN RESP DISTRESS. AMBULATORY. PT WAS SENT BY DR. PETERSEN FOR PORT A CATH PLACEMENT. MD WAS AT THE BEDSIDE FOR EVAL. ORDERS RECEIVED NOTED AND CARRIED OUT.
[2020-03-05 16:14] LABS: BASOPHILS % (AUTO) 0.3 % (0.0-2.0); EOSINOPHILS % (AUTO) 1.1 % (0.0-6.0); HEMATOCRIT 36 % (33-45); HEMOGLOBIN 11.4 g/dL (11.5-14.8); LYMPHOCYTES # (AUTO) 1.4 /CMM (0.8-4.8); LYMPHOCYTES % (AUTO) 9.6 % (20.0-44.0); MEAN CORPUSCULAR HGB CONC 31 g/dl (31.0-36.0); MEAN CORPUSCULAR VOLUME 83 fL (82-100); MONOCYTES # (AUTO) 0.9 /CMM (0.1-1.30); MONOCYTES % (AUTO) 6.3 % (2.0-12.0); NEUTROPHILS # (AUTO) 11.8 /CMM (1.8-8.9); NEUTROPHILS % (AUTO) 82.7 % (43.0-81.0); PLATELET COUNT (AUTO) 599 /CMM (150-450); RED BLOOD CELL COUNT(AUTO) 4.36 MIL/uL (4.0-5.2); WHITE BLOOD COUNT (AUTO) 14.2 K/uL (4.3-11.0)
[2020-03-05 16:26] LABS: CALCIUM, SERUM 8.6 mg/dL (8.5-10.1); CREATININE 0.7 mg/dL (0.6-1.3); POTASSIUM 3.3 mmol/L (3.5-5.1)
--- NOTE | 2020-03-05 16:57 | NUR ---
bed [id number]
[2020-03-05] MEDS ORDERED: POTASSIUM CHLORIDE 20 MEQ TAB.PRT.SR PO ONE ×2 (16:58→17:00)
--- NOTE | 2020-03-05 17:15 | NUR ---
report given to carol RON for pamela
--- NOTE | 2020-03-05 17:32 | NUR ---
COVID19 NEGATIVE
--- NOTE | 2020-03-05 17:41 | NUR ---
wheeled patient via gurney accompanied by EMT in no distress going to room 103, denies any pain at this time. RN at bedside to assume care.
[2020-03-05] MEDS ORDERED: HYDROCODONE/APAP 5/325MG TABLET PO PRN (18:00)
[2020-03-05] MEDS ORDERED: Z GUARD REMEDY 2 OZ OINT TP PRN (18:00)
[2020-03-05] MEDS ORDERED: MAG HYDROX/AL HYDROX/SIMETH 30 ML UDC PO PRN (18:00)
[2020-03-05] MEDS ORDERED: ACETAMINOPHEN 325 MG TABLET PO PRN (18:00)
[2020-03-05] MEDS ORDERED: MAGNESIUM HYDROXIDE 30 ML UDC PO PRN (18:00)
[2020-03-05] MEDS ORDERED: ONDANSETRON HCL/PF 4 MG/2 ML VIAL IVP PRN (18:00)
--- NOTE | 2020-03-05 18:15 | NUR ---
RN OPENING NOTE Received patient from ER accompanied by 2 RNs via [employer]. Patient is AO X4 verbal and able to communicate. Patient is an employee here. On room air O2 sat 98%. Has R AC #20 flushes well. Patient was provided with dinner. Explained she will be NPO after midnight. Safety measures implemented. Call light within reach. Will cont to monitor.
[2020-03-05] MEDS: IV D5/0.45 NACL 1,000 ML IV PRN (18:16)
--- NOTE | 2020-03-05 19:30 | NUR ---
ENDORSED TO HEADLINE WRITER NURSE FOR XAVI.
--- NOTE | 2020-03-05 19:30 | NUR ---
RN OPENING NOTES: Rec'd pt in bed, A&Ox4. On room air, breathing even and unlabored. No SOB or resp distress noted. Pt ambulatory. IV site on right AC #20 patent and flushed. Dressings c/d/i. Pt to be NPO after midnight for surgery in am. No pain reported at this time. Safety measures in place. Will continue to monitor. Addendum: 03/05/20 at 2033 by KIRT TOMLINSON RN D5 1/2NS infusing at 75ml/hr.
[2020-03-05 20:00] VITALS: BP 118/78
[2020-03-06 04:00] VITALS: BP 108/74
--- NOTE | 2020-03-06 04:08 | NUR ---
RN NOTE: Pt refused bed bath and linen change at this time. Stated "maybe later".
--- NOTE | 2020-03-06 07:01 | NUR ---
RN CLOSING NOTES: No acute changes noted throughout shift. Remains on room air, no SOB or resp distress noted throughout shift. Breathing even and unlabored. NPO dx for port a cath placement later today. RAC #20 patent and flushing w/ D51/2Ns infusing at 75ml/hr. Dressing c/d/i. Safety measures in place. Will endorse to oncoming nurse for XAVI.
[2020-03-06 07:21] LABS: BASOPHILS # (AUTO) 0.1 /CMM (0.0-0.2); BASOPHILS % (AUTO) 0.4 % (0.0-2.0); EOSINOPHILS % (AUTO) 0.9 % (0.0-6.0); HEMATOCRIT 34 % (33-45); HEMOGLOBIN 10.8 g/dL (11.5-14.8); LYMPHOCYTES # (AUTO) 1.2 /CMM (0.8-4.8); LYMPHOCYTES % (AUTO) 8.1 % (20.0-44.0); MEAN CORPUSCULAR HGB CONC 32 g/dl (31.0-36.0); MEAN CORPUSCULAR VOLUME 84 fL (82-100); MONOCYTES % (AUTO) 6.7 % (2.0-12.0); NEUTROPHILS # (AUTO) 12.2 /CMM (1.8-8.9); NEUTROPHILS % (AUTO) 83.9 % (43.0-81.0); PLATELET COUNT (AUTO) 562 /CMM (150-450); WHITE BLOOD COUNT (AUTO) 14.6 K/uL (4.3-11.0)
--- NOTE | 2020-03-06 07:30 | NUR ---
ms rn received on bed, awake,alert,oriented x4,not in any form of distress,respirations even and unlabored,no sob noted, came in for porthacath insertion, will call dr. ellis for plan,all needs attended.
[2020-03-06 07:35] LABS: CALCIUM, SERUM 8.1 mg/dL (8.5-10.1); CREATININE 0.6 mg/dL (0.6-1.3); MAGNESIUM 2.1 mg/dL (1.8-2.4); PHOSPHORUS 3.7 mg/dL (2.5-4.9); POTASSIUM 3.6 mmol/L (3.5-5.1)
--- NOTE | 2020-03-06 09:00 | NUR ---
rn npo at this time, consent signed.
[2020-03-06] MEDS: IV D5/0.45 NACL 1,000 ML IV PRN (09:55)
--- NOTE | 2020-03-06 10:00 | NUR ---
notified dr.samuel lelis regarding port cath placement and pt. npo since last night.obtained consent for procedure ,will continue to follow up.
[2020-03-06 10:36] VITALS: BP 118/71
--- NOTE | 2020-03-06 13:00 | NUR ---
ms edith tracy np came to do procedure at 5pm today.
[2020-03-06] MEDS ORDERED: LIDOCAINE HCL/MPF 1% 30 ML VIAL IJ ONE (15:57)
[2020-03-06] MEDS ORDERED: HEPARIN SODIUM, PORCINE 1,000 UNIT/ML VIAL ONE (15:57)
[2020-03-06 16:00] VITALS: BP 119/75
--- NOTE | 2020-03-06 17:14 | NUR ---
ms rn patient went up for surgery(porthacath placement).
[2020-03-06] MEDS ORDERED: MIDAZOLAM HCL 2 MG/2ML VIAL ONE (17:47)
[2020-03-06] MEDS ORDERED: CLINDAMYCIN 900 MG/6 ML VIAL ONE (17:52)
--- NOTE | 2020-03-06 19:04 | NUR ---
ms rn patient still at or t this time,report given to child's nurse.
--- NOTE | 2020-03-06 19:10 | NUR ---
RN NOTE: Rec'd report. Pt is currently at OR at this time.
[2020-03-06] MEDS ORDERED: ONDANSETRON HCL/PF 4 MG/2 ML VIAL ONE (19:48)
[2020-03-06 20:15] VITALS: BP 112/72
--- NOTE | 2020-03-06 20:15 | NUR ---
RN NOTE: Pt back from OR at 2015. VSS. A&Ox4. On room air, O2 WNL. No SOB or resp distress noted. Breathing even and unlabored. RAC #20 patent and flushed, D5 1/2NS hooked back on to pt and infusing at 75ml/hr. Safety measures in place. No pain reported at this time. Will continue to monitor. Addendum: 03/06/20 at 2121 by KIRT TOMLINSON RN Right chest wall portacath noted, w/ steri strip dressing in place. Clean/dry.
[2020-03-07 04:00] VITALS: BP 100/71
--- NOTE | 2020-03-07 06:50 | NUR ---
RN CLOSING NOTES: No acute changes noted throughout shift. Pt remains on room air, breathing even and unlabored. RAC #20 patent and flushing w/ D51/2NS infusing at 75ml/hr. Safety measures in place. Will endorse to oncoming nurse for XAVI.
--- NOTE | 2020-03-07 07:50 | NUR ---
PT LYING AWAKE IN BED. A/O X4. R AC FLUSHED. DRESSING PATENT. D5W RUNNING 75ML/HR ORDERED. REPORTS MILD 4/10 PAIN IN PERMACATH PLACEMENT SITE. NO SOB. SPO 100% ON RA. SKIN INTACT. AMBULATORY W STAND BY. WILL MONITOR PT PAIN AND PERMACATH SITE THROUGHOUT THE DAY. ALL HOSPITAL POLICY SAFETY PRECAUTIONS IMPLEMENTED INCLUDING RAILS UP X2, BED LOW, LOCKED, CALL LIGHT IN REACH, HOB ELEVATED.
--- NOTE | 2020-03-07 11:00 | NUR ---
PT DC TO PRIVATE VEHICLE W FRIEND. VIA WHEELCHAIR. ALL BELONGINGS AND DC INSTRUCTIONS PROVIDED. PT DENIES CONCERNS OR QUESTIONS. IV REMOVED. NO SIGNS OF BLEEDING. TOLERATED WELL.
== END 2020-03-07 11:00 | disposition home or self-care (01) | DRG 375 ==
LOC: ER 14:21 → MEDSG1 17:06
PROVIDERS: ADMIT Internal Medicine; ATTEND Internal Medicine
PROC: 0JHD3XZ Insertion of Tunneled Vascular Access Device into Right Upper Arm Subcutaneous Tissue and Fascia, Percutaneous Approach (ICD-10-PCS; principal; 2020-03-06)
PROC: 05HM33Z Insertion of Infusion Device into Right Internal Jugular Vein, Percutaneous Approach (ICD-10-PCS; 2020-03-06)
PROC: B543ZZA Ultrasonography of Right Jugular Veins, Guidance (ICD-10-PCS; 2020-03-06)
DX: C20 Malignant neoplasm of rectum (principal); E87.1 Hypo-osmolality and hyponatremia; Z88.1 Allergy status to other antibiotic agents; E87.6 Hypokalemia; D64.9 Anemia, unspecified; Z87.442 Personal history of urinary calculi; E86.1 Hypovolemia; D72.829 Elevated white blood cell count, unspecified; D47.3 Essential (hemorrhagic) thrombocythemia; R59.1 Generalized enlarged lymph nodes; N85.9 Noninflammatory disorder of uterus, unspecified; Z98.890 Other specified postprocedural states
CPT/HCPCS: 36415; 71045-TC; 80048-TC; 83735-TC; 84100-TC; 84703-TC; 85025-TC; 85730-TC; 86850-TC; 87081-TC; C1788; G0378; J1100; J1644; J2250; J2405; J2704; J3490

== ENCOUNTER 2020-03-16 13:38 | Outpatient (CLI) | payer BC ==
[2020-03-16 14:26] LABS: BASOPHILS % (AUTO) 0.3 % (0.0-2.0); EOSINOPHILS % (AUTO) 0.8 % (0.0-6.0); HEMATOCRIT 38 % (33-45); LYMPHOCYTES # (AUTO) 1.5 /CMM (0.8-4.8); LYMPHOCYTES % (AUTO) 12.2 % (20.0-44.0); MEAN CORPUSCULAR HGB CONC 31 g/dl (31.0-36.0); MEAN CORPUSCULAR VOLUME 83 fL (82-100); MONOCYTES # (AUTO) 1.1 /CMM (0.1-1.30); MONOCYTES % (AUTO) 8.8 % (2.0-12.0); NEUTROPHILS # (AUTO) 9.5 /CMM (1.8-8.9); NEUTROPHILS % (AUTO) 77.9 % (43.0-81.0); PLATELET COUNT (AUTO) 485 /CMM (150-450); RED BLOOD CELL COUNT(AUTO) 4.59 MIL/uL (4.0-5.2); WHITE BLOOD COUNT (AUTO) 12.2 K/uL (4.3-11.0)
[2020-03-16 15:10] LABS: ALBUMIN 2.6 g/dL (3.4-5.0); BILIRUBIN,TOTAL 0.2 mg/dL (0.2-1.0); CREATININE 0.8 mg/dL (0.6-1.3); POTASSIUM 3.7 mmol/L (3.5-5.1)
== END 2020-03-16 23:59 | disposition home or self-care (01) ==
LOC: LAB 13:38
PROVIDERS: ATTEND Internal Medicine Hematology & Oncology
DX: C20 Malignant neoplasm of rectum (principal); D64.9 Anemia, unspecified; R59.1 Generalized enlarged lymph nodes
CPT/HCPCS: 36415; 80053-TC; 82378; 85025-TC

== ENCOUNTER 2020-03-23 11:47 | Outpatient (CLI) | payer BC ==
[2020-03-23 12:44] LABS: BASOPHILS # (AUTO) 0.1 /CMM (0.0-0.2); EOSINOPHILS % (AUTO) 2.6 % (0.0-6.0); HEMATOCRIT 36 % (33-45); HEMOGLOBIN 11.7 g/dL (11.5-14.8); LYMPHOCYTES # (AUTO) 1.4 /CMM (0.8-4.8); LYMPHOCYTES % (AUTO) 20.8 % (20.0-44.0); MEAN CORPUSCULAR HGB CONC 32 g/dl (31.0-36.0); MEAN CORPUSCULAR VOLUME 84 fL (82-100); MONOCYTES # (AUTO) 0.7 /CMM (0.1-1.30); MONOCYTES % (AUTO) 9.9 % (2.0-12.0); NEUTROPHILS # (AUTO) 4.4 /CMM (1.8-8.9); NEUTROPHILS % (AUTO) 65.7 % (43.0-81.0); PLATELET COUNT (AUTO) 549 /CMM (150-450); RED BLOOD CELL COUNT(AUTO) 4.31 MIL/uL (4.0-5.2); WHITE BLOOD COUNT (AUTO) 6.7 K/uL (4.3-11.0)
[2020-03-23 13:21] LABS: ALBUMIN 2.7 g/dL (3.4-5.0); BILIRUBIN,TOTAL 0.2 mg/dL (0.2-1.0); CALCIUM, SERUM 8.9 mg/dL (8.5-10.1); CREATININE 0.7 mg/dL (0.6-1.3); POTASSIUM 3.7 mmol/L (3.5-5.1); TOTAL PROTEIN, SERUM 7.6 g/dL (6.4-8.2)
== END 2020-03-23 23:59 | disposition home or self-care (01) ==
LOC: LAB 11:47
PROVIDERS: ATTEND Internal Medicine Hematology & Oncology
DX: C20 Malignant neoplasm of rectum (principal); R59.1 Generalized enlarged lymph nodes
CPT/HCPCS: 36415; 80053-TC; 82378; 85025-TC

== ENCOUNTER 2020-04-09 11:25 | Outpatient (CLI) | payer BC ==
[2020-04-09 12:25] LABS: BASOPHILS % (AUTO) 0.7 % (0.0-2.0); EOSINOPHILS % (AUTO) 2.3 % (0.0-6.0); HEMATOCRIT 35 % (33-45); HEMOGLOBIN 11.2 g/dL (11.5-14.8); LYMPHOCYTES # (AUTO) 1.3 /CMM (0.8-4.8); MEAN CORPUSCULAR HGB CONC 32 g/dl (31.0-36.0); MEAN CORPUSCULAR VOLUME 87 fL (82-100); MONOCYTES # (AUTO) 0.6 /CMM (0.1-1.30); MONOCYTES % (AUTO) 12.4 % (2.0-12.0); NEUTROPHILS # (AUTO) 2.7 /CMM (1.8-8.9); NEUTROPHILS % (AUTO) 56.6 % (43.0-81.0); PLATELET COUNT (AUTO) 195 /CMM (150-450); RED BLOOD CELL COUNT(AUTO) 4.01 MIL/uL (4.0-5.2); WHITE BLOOD COUNT (AUTO) 4.7 K/uL (4.3-11.0)
[2020-04-09 12:36] LABS: BILIRUBIN,TOTAL 0.3 mg/dL (0.2-1.0); CALCIUM, SERUM 8.3 mg/dL (8.5-10.1); CREATININE 0.8 mg/dL (0.6-1.3); POTASSIUM 3.7 mmol/L (3.5-5.1); TOTAL PROTEIN, SERUM 7.6 g/dL (6.4-8.2)
== END 2020-04-09 23:59 | disposition home or self-care (01) ==
LOC: LAB 11:25
PROVIDERS: ATTEND Internal Medicine Hematology & Oncology
DX: C20 Malignant neoplasm of rectum (principal); D64.9 Anemia, unspecified; R59.1 Generalized enlarged lymph nodes
CPT/HCPCS: 36415; 80053-TC; 85025-TC

== ENCOUNTER 2020-05-03 12:34 | Outpatient (CLI) | payer BC ==
[2020-05-03 14:00] LABS: BASOPHILS % (AUTO) 0.7 % (0.0-2.0); EOSINOPHILS % (AUTO) 1.7 % (0.0-6.0); HEMATOCRIT 35 % (33-45); HEMOGLOBIN 11.3 g/dL (11.5-14.8); LYMPHOCYTES # (AUTO) 1.6 /CMM (0.8-4.8); LYMPHOCYTES % (AUTO) 30.9 % (20.0-44.0); MEAN CORPUSCULAR HGB CONC 32 g/dl (31.0-36.0); MEAN CORPUSCULAR VOLUME 95 fL (82-100); MONOCYTES # (AUTO) 0.7 /CMM (0.1-1.30); MONOCYTES % (AUTO) 14.4 % (2.0-12.0); NEUTROPHILS # (AUTO) 2.7 /CMM (1.8-8.9); NEUTROPHILS % (AUTO) 52.3 % (43.0-81.0); PLATELET COUNT (AUTO) 195 /CMM (150-450); RED BLOOD CELL COUNT(AUTO) 3.69 MIL/uL (4.0-5.2); WHITE BLOOD COUNT (AUTO) 5.2 K/uL (4.3-11.0)
[2020-05-03 15:47] LABS: BILIRUBIN,TOTAL 0.4 mg/dL (0.2-1.0); CALCIUM, SERUM 8.4 mg/dL (8.5-10.1); CREATININE 0.7 mg/dL (0.6-1.3); TOTAL PROTEIN, SERUM 7.4 g/dL (6.4-8.2)
[2020-05-03 19:27] LABS: EOSINOPHILS % (MANUAL) 1 % (0-4); LYMPHOCYTES % (MANUAL) 23 % (16-48); MONOCYTES % (MANUAL) 2 % (0-11.0); NEUTROPHILS % (MANUAL) 74 (42-76)
== END 2020-05-03 23:59 | disposition home or self-care (01) ==
LOC: LAB 12:34
PROVIDERS: ATTEND Internal Medicine Hematology & Oncology
DX: C20 Malignant neoplasm of rectum (principal); D64.9 Anemia, unspecified; R59.1 Generalized enlarged lymph nodes
CPT/HCPCS: 36415; 80053-TC; 85025-TC

== ENCOUNTER 2020-05-25 13:24 | Outpatient (CLI) | payer BC ==
[2020-05-25 14:55] LABS: ALBUMIN 2.8 g/dL (3.4-5.0); BILIRUBIN,TOTAL 0.3 mg/dL (0.2-1.0); CALCIUM, SERUM 8.7 mg/dL (8.5-10.1); CREATININE 0.6 mg/dL (0.6-1.3); POTASSIUM 3.6 mmol/L (3.5-5.1); TOTAL PROTEIN, SERUM 7.2 g/dL (6.4-8.2)
[2020-05-25 15:00] LABS: BASOPHILS % (AUTO) 0.4 % (0.0-2.0); EOSINOPHILS % (AUTO) 1.4 % (0.0-6.0); HEMATOCRIT 35 % (33-45); HEMOGLOBIN 11.6 g/dL (11.5-14.8); LYMPHOCYTES # (AUTO) 1.4 /CMM (0.8-4.8); MEAN CORPUSCULAR HGB CONC 33 g/dl (31.0-36.0); MEAN CORPUSCULAR VOLUME 101 fL (82-100); MONOCYTES # (AUTO) 0.8 /CMM (0.1-1.30); MONOCYTES % (AUTO) 12.9 % (2.0-12.0); NEUTROPHILS # (AUTO) 4.1 /CMM (1.8-8.9); NEUTROPHILS % (AUTO) 63.3 % (43.0-81.0); PLATELET COUNT (AUTO) 200 /CMM (150-450); RED BLOOD CELL COUNT(AUTO) 3.49 MIL/uL (4.0-5.2); WHITE BLOOD COUNT (AUTO) 6.5 K/uL (4.3-11.0)
[2020-05-25 16:48] LABS: EOSINOPHILS % (MANUAL) 3 % (0-4); LYMPHOCYTES % (MANUAL) 25 % (16-48); MONOCYTES % (MANUAL) 7 % (0-11.0); NEUTROPHILS % (MANUAL) 65 (42-76)
== END 2020-05-25 23:35 | disposition home or self-care (01) ==
LOC: LAB 13:24
PROVIDERS: ATTEND Internal Medicine Hematology & Oncology
DX: C20 Malignant neoplasm of rectum (principal); D64.9 Anemia, unspecified; R59.1 Generalized enlarged lymph nodes
CPT/HCPCS: 36415; 80053-TC; 85025-TC

== ENCOUNTER 2020-06-15 13:23 | Outpatient (CLI) | payer BC ==
[2020-06-15 14:57] LABS: EOSINOPHILS % (AUTO) 21.6 % (0.0-6.0); HEMATOCRIT 35 % (33-45); HEMOGLOBIN 11.5 g/dL (11.5-14.8); LYMPHOCYTES # (AUTO) 0.8 /CMM (0.8-4.8); LYMPHOCYTES % (AUTO) 13.5 % (20.0-44.0); MEAN CORPUSCULAR HGB CONC 33 g/dl (31.0-36.0); MEAN CORPUSCULAR VOLUME 106 fL (82-100); MONOCYTES # (AUTO) 1.7 /CMM (0.1-1.30); NEUTROPHILS # (AUTO) 2.3 /CMM (1.8-8.9); NEUTROPHILS % (AUTO) 37.9 % (43.0-81.0); PLATELET COUNT (AUTO) 162 /CMM (150-450); RED BLOOD CELL COUNT(AUTO) 3.29 MIL/uL (4.0-5.2); WHITE BLOOD COUNT (AUTO) 6.2 K/uL (4.3-11.0)
[2020-06-15 15:03] LABS: BILIRUBIN,TOTAL 0.5 mg/dL (0.2-1.0); CALCIUM, SERUM 8.8 mg/dL (8.5-10.1); CREATININE 0.6 mg/dL (0.6-1.3); POTASSIUM 3.8 mmol/L (3.5-5.1); TOTAL PROTEIN, SERUM 7.6 g/dL (6.4-8.2)
[2020-06-15 16:28] LABS: LYMPHOCYTES % (MANUAL) 24 % (16-48); MONOCYTES % (MANUAL) 14 % (0-11.0); NEUTROPHILS % (MANUAL) 62 (42-76)
== END 2020-06-15 23:59 | disposition home or self-care (01) ==
LOC: LAB 13:23
PROVIDERS: ATTEND Internal Medicine Hematology & Oncology
DX: C20 Malignant neoplasm of rectum (principal); D64.9 Anemia, unspecified; R59.1 Generalized enlarged lymph nodes
CPT/HCPCS: 36415; 80053-TC; 82378; 85025-TC

== ENCOUNTER 2020-07-06 12:31 | Outpatient (CLI) | payer BC ==
[2020-07-06 14:39] LABS: BASOPHILS % (AUTO) 0.3 % (0.0-2.0); EOSINOPHILS % (AUTO) 0.8 % (0.0-6.0); HEMATOCRIT 36 % (33-45); HEMOGLOBIN 11.7 g/dL (11.5-14.8); LYMPHOCYTES # (AUTO) 1.3 /CMM (0.8-4.8); LYMPHOCYTES % (AUTO) 22.7 % (20.0-44.0); MEAN CORPUSCULAR HGB CONC 33 g/dl (31.0-36.0); MEAN CORPUSCULAR VOLUME 111 fL (82-100); MONOCYTES # (AUTO) 0.8 /CMM (0.1-1.30); MONOCYTES % (AUTO) 14.1 % (2.0-12.0); NEUTROPHILS # (AUTO) 3.5 /CMM (1.8-8.9); NEUTROPHILS % (AUTO) 62.1 % (43.0-81.0); PLATELET COUNT (AUTO) 154 /CMM (150-450); RED BLOOD CELL COUNT(AUTO) 3.25 MIL/uL (4.0-5.2); WHITE BLOOD COUNT (AUTO) 5.7 K/uL (4.3-11.0)
[2020-07-06 15:10] LABS: ALBUMIN 2.5 g/dL (3.4-5.0); BILIRUBIN,TOTAL 0.5 mg/dL (0.2-1.0); CALCIUM, SERUM 8.2 mg/dL (8.5-10.1); CREATININE 0.7 mg/dL (0.6-1.3); POTASSIUM 3.3 mmol/L (3.5-5.1); TOTAL PROTEIN, SERUM 6.7 g/dL (6.4-8.2)
== END 2020-07-06 23:59 | disposition home or self-care (01) ==
LOC: LAB 12:31
PROVIDERS: ATTEND Internal Medicine Hematology & Oncology
DX: C20 Malignant neoplasm of rectum (principal); D64.9 Anemia, unspecified; R59.1 Generalized enlarged lymph nodes
CPT/HCPCS: 36415; 80053-TC; 82378; 85025-TC

== ENCOUNTER 2020-07-09 09:06 | Outpatient (CLI) | payer BC ==
[2020-07-09] MEDS ORDERED: IOHEXOL-300 100 ML VIAL IV ONE (09:58)
== END 2020-07-09 23:59 | disposition home or self-care (01) ==
LOC: CT 09:06
PROVIDERS: ATTEND Internal Medicine Hematology & Oncology
DX: C20 Malignant neoplasm of rectum (principal); K80.20 Calculus of gallbladder without cholecystitis without obstruction; N20.0 Calculus of kidney; D25.2 Subserosal leiomyoma of uterus; N85.2 Hypertrophy of uterus; I70.0 Atherosclerosis of aorta
CPT/HCPCS: 71270; 74178; Q9967

== ENCOUNTER 2020-07-30 14:48 | Outpatient (CLI) | payer BC ==
[2020-07-30 15:46] LABS: BASOPHILS % (AUTO) 0.3 % (0.0-2.0); EOSINOPHILS % (AUTO) 0.2 % (0.0-6.0); HEMATOCRIT 39 % (33-45); HEMOGLOBIN 12.9 g/dL (11.5-14.8); LYMPHOCYTES # (AUTO) 0.7 /CMM (0.8-4.8); MEAN CORPUSCULAR HGB CONC 33 g/dl (31.0-36.0); MEAN CORPUSCULAR VOLUME 111 fL (82-100); MONOCYTES # (AUTO) 0.8 /CMM (0.1-1.30); MONOCYTES % (AUTO) 12.4 % (2.0-12.0); NEUTROPHILS # (AUTO) 5.2 /CMM (1.8-8.9); NEUTROPHILS % (AUTO) 77.1 % (43.0-81.0); PLATELET COUNT (AUTO) 208 /CMM (150-450); WHITE BLOOD COUNT (AUTO) 6.7 K/uL (4.3-11.0)
[2020-07-30 16:01] LABS: ALBUMIN 2.3 g/dL (3.4-5.0); BILIRUBIN,TOTAL 0.9 mg/dL (0.2-1.0); CALCIUM, SERUM 8.5 mg/dL (8.5-10.1); CREATININE 0.9 mg/dL (0.6-1.3); TOTAL PROTEIN, SERUM 7.2 g/dL (6.4-8.2)
[2020-07-30 16:15] LABS: POTASSIUM 2.8 mmol/L (3.5-5.1)
[2020-07-30 16:53] LABS: LYMPHOCYTES % (MANUAL) 13 % (16-48); MONOCYTES % (MANUAL) 14 % (0-11.0); NEUTROPHILS % (MANUAL) 73 (42-76)
== END 2020-07-30 23:59 | disposition home or self-care (01) ==
LOC: LAB 14:48
PROVIDERS: ATTEND Internal Medicine Hematology & Oncology
DX: C20 Malignant neoplasm of rectum (principal); D64.9 Anemia, unspecified; R59.1 Generalized enlarged lymph nodes
CPT/HCPCS: 36415; 80053-TC; 85025-TC

== ENCOUNTER 2020-07-30 20:02 | Inpatient (IN) | payer BC ==
[~2020-07-30] VITALS: Ht 154.9 cm; Wt 50.3 kg
--- NOTE | 2020-07-30 20:17 | NUR ---
tech at bedside for EKG
--- NOTE | 2020-07-30 20:18 | NUR ---
PATIENT CAME TO THE ER BED 16 C/O NAUSEA AND VOMITING FOR THE PAST 3x WEEK WITH NO APPETITE. PATIENT ALSO HAS HAD A FEVER UPON ARRIVAL TO THE ER. PATIENT IS REFERRED HERE BY DR. 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 PATIENT IS AAXO4. NO SOB. BREATHING EVENLY AND UNLABORED ON ROOM AIR. CONNECTED TO THE PROJECT PROGRAM MANAGER. PATIENT IS AMBULATORY.
[2020-07-30] MEDS ORDERED: ACETAMINOPHEN ES 500 MG TABLET ONE (20:24)
[2020-07-30] MEDS ORDERED: CEFEPIME 1 GM in IV D5W 50 ML IV ONE (20:30)
[2020-07-30] MEDS ORDERED: VANCOMYCIN 1 GM in IV D5W 250 ML IV ONE (20:30)
[2020-07-30] MEDS ORDERED: ACETAMINOPHEN ES 500 MG TABLET PO ONE (20:30)
[2020-07-30] MEDS ORDERED: IV NS 0.9% 1,000 ML BAG IV ONE (20:30)
--- NOTE | 2020-07-30 20:36 | NUR ---
BLOOD COLLECTED AND SENT TO THE LAB.
[2020-07-30] MEDS ORDERED: VANCOMYCIN 1 GM VIAL ONE (20:40)
[2020-07-30] MEDS ORDERED: CEFEPIME 1 GM VIAL ONE (20:40)
[2020-07-30 21:22] LABS: BASOPHILS % (AUTO) 0.4 % (0.0-2.0); EOSINOPHILS % (AUTO) 0.2 % (0.0-6.0); HEMATOCRIT 38 % (33-45); LYMPHOCYTES # (AUTO) 0.9 /CMM (0.8-4.8); LYMPHOCYTES % (AUTO) 12.3 % (20.0-44.0); MEAN CORPUSCULAR HGB CONC 34 g/dl (31.0-36.0); MEAN CORPUSCULAR VOLUME 110 fL (82-100); MONOCYTES % (AUTO) 14.3 % (2.0-12.0); NEUTROPHILS # (AUTO) 5.3 /CMM (1.8-8.9); NEUTROPHILS % (AUTO) 72.8 % (43.0-81.0); PLATELET COUNT (AUTO) 193 /CMM (150-450); RED BLOOD CELL COUNT(AUTO) 3.47 MIL/uL (4.0-5.2); WHITE BLOOD COUNT (AUTO) 7.2 K/uL (4.3-11.0)
--- NOTE | 2020-07-30 21:26 | NUR ---
LAB CALLED REGARDING NEGATIVE COVID RESULT.
[2020-07-30] MEDS ORDERED: ONDANSETRON HCL/PF 4 MG/2 ML VIAL ONE (21:36)
[2020-07-30 21:37] LABS: CALCIUM, SERUM 8.5 mg/dL (8.5-10.1); CARBON DIOXIDE 23 mmol/L (21-32); CHLORIDE 97 mmol/L (98-107); CREATININE 0.8 mg/dL (0.6-1.3); GLUCOSE 136 mg/dL (74-106); POTASSIUM 3.1 mmol/L (3.5-5.1); SODIUM SERUM 130 mmol/L (136-145); UREA NITROGEN, BLOOD 10 mg/dL (7-18)
[2020-07-30 21:42] LABS: ALANINE AMINOTRANSFERASE 16 U/L (12-78); ALBUMIN 2.3 g/dL (3.4-5.0); ALKALINE PHOSPHATASE 70 U/L (46-116); ASPARTATE AMINOTRANSFERASE 35 U/L (15-37); BILIRUBIN,TOTAL 0.9 mg/dL (0.2-1.0); MAGNESIUM 2.1 mg/dL (1.8-2.4); TOTAL PROTEIN, SERUM 7.2 g/dL (6.4-8.2)
[2020-07-30 21:49] LABS: LYMPHOCYTES % (MANUAL) 13 % (16-48); MONOCYTES % (MANUAL) 16 % (0-11.0); NEUTROPHILS % (MANUAL) 71 (42-76)
[2020-07-30] MEDS ORDERED: POTASSIUM CL. PREMIX PERIPHER. 100 ML ONE (21:58)
[2020-07-30] MEDS ORDERED: ONDANSETRON HCL/PF 4 MG/2 ML VIAL IV ONE (22:00)
[2020-07-30] MEDS ORDERED: POTASSIUM CL. PREMIX PERIPHER. 50 ML IV ONE (22:00)
[2020-07-30] MEDS ORDERED: IV NS 0.9% 500 ML BAG IV ONE (22:30)
--- NOTE | 2020-07-30 22:40 | NUR ---
REPORT GIVEN TO SUKI RON FOR XAVI.
[2020-07-30 22:45] VITALS: BP 148/93
[2020-07-30] MEDS ORDERED: ONDANSETRON HCL/PF 4 MG/2 ML VIAL IVP PRN (23:30)
[2020-07-30] MEDS ORDERED: Z GUARD REMEDY 2 OZ OINT TP PRN (23:30)
[2020-07-30] MEDS ORDERED: ZOLPIDEM TARTRATE 5 MG TABLET PO PRN (23:30)
[2020-07-30] MEDS ORDERED: MAGNESIUM HYDROXIDE 30 ML UDC PO PRN (23:30)
[2020-07-30] MEDS ORDERED: HYDROCODONE/APAP 5/325MG TABLET PO PRN (23:30)
[2020-07-30] MEDS ORDERED: ACETAMINOPHEN 325 MG TABLET PO PRN (23:30)
[2020-07-30 23:58] LABS: BILIRUBIN,URINE NEGATIVE (NEGATIVE); COLOR,URINE YELLOW (YELLOW); LEUKOCYTE ESTERASE ,URINE SMALL (NEGATIVE); NITRITE, URINE NEGATIVE (NEGATIVE); PROTEIN,URINE NEGATIVE (NEGATIVE); UGLUCOSE NEGATIVE (NEGATIVE); UROBILINOGEN,URINE 0.2 EU/dL (0.2)
--- NOTE | 2020-07-31 00:09 | NUR ---
MS/TELE/RN RECEIVED PATIENT AT AROUND [address] [facility] BY LAWRENCE. PATIENT WAS AWAKE, ALERT, ORIENTED, COMFORTABLE, NO C/O PAIN, NO DISTRESS NOTED, ADMISSION DONE PER PROTOCOL, URINE SPECIMEN SENT TO LAB, PLAN OF CARE DISCUSSED WITH THE PATIENT, VERBALIZED UNDERSTANDING, TAUGHT THE USE OF CALL LIGHT, PLACED IT AT BEDSIDE WITHIN REACH. WILL MONITOR.
[2020-07-31 00:33] LABS: BACTERIA,URINE 2+ /HPF (None Seen); MUCUS,URINE Few /LPF (None Seen); SQUAMOUS EPITHELIAL CELL,UR Few /HPF (None Seen); URINE AMORPHOUS PHOSPHATES Few /HPF (None Seen); WBC,URINE 21-50 /HPF (0-3)
[2020-07-31 01:27] LABS: BILIRUBIN,DIRECT 0.3 mg/dL (0.0-0.2)
[2020-07-31] MEDS ORDERED: CEFEPIME 1 GM in IV D5W 50 ML IV SCH (05:00)
[2020-07-31] MEDS ORDERED: CEFEPIME 1 GM VIAL ONE (05:20)
--- NOTE | 2020-07-31 07:15 | NUR ---
RN OPENING NOTE PATIENT RECEIVED RESTING COMFORTABLY IN BED. PATIENT IS ON ROOM AIR WITH NO COMPLAINTS OF SOB OR RESPIRATORY DISTRESS NOTED. NO COMPLAINTS OF PAIN. PATIENT SAFETY PRECAUTIONS IMPLEMENTED, BED LOCKED IN LOWEST POSITION, SIDE RAILS UP X2, CALL LIGHT WITHIN REACH. WILL CONTINUE TO MONITOR AND PROVIDE CARE THROUGHOUT SHIFT.
[2020-07-31 07:23] LABS: BASOPHILS % (AUTO) 0.1 % (0.0-2.0); EOSINOPHILS % (AUTO) 0.2 % (0.0-6.0); HEMATOCRIT 35 % (33-45); HEMOGLOBIN 11.7 g/dL (11.5-14.8); LYMPHOCYTES # (AUTO) 0.6 /CMM (0.8-4.8); LYMPHOCYTES % (AUTO) 6.6 % (20.0-44.0); MEAN CORPUSCULAR HGB CONC 34 g/dl (31.0-36.0); MEAN CORPUSCULAR VOLUME 113 fL (82-100); MONOCYTES # (AUTO) 0.8 /CMM (0.1-1.30); MONOCYTES % (AUTO) 9.2 % (2.0-12.0); NEUTROPHILS # (AUTO) 7.5 /CMM (1.8-8.9); NEUTROPHILS % (AUTO) 83.9 % (43.0-81.0); PLATELET COUNT (AUTO) 166 /CMM (150-450); RED BLOOD CELL COUNT(AUTO) 3.07 MIL/uL (4.0-5.2)
[2020-07-31 07:45] LABS: CALCIUM, SERUM 8.3 mg/dL (8.5-10.1); CREATININE 0.7 mg/dL (0.6-1.3); MAGNESIUM 2.1 mg/dL (1.8-2.4); PHOSPHORUS 3.2 mg/dL (2.5-4.9); POTASSIUM 3.5 mmol/L (3.5-5.1)
[2020-07-31 08:00] VITALS: BP 123/66
[2020-07-31] MEDS ORDERED: VANCOMYCIN 0.75 GM in IV D5W 250 ML IV SCH (08:00)
[2020-07-31] MEDS ORDERED: CEFEPIME 2 GM in IV D5W 100 ML IV SCH (14:00)
--- NOTE | 2020-07-31 16:46 | NUR ---
Patient discharged from hospital in stable condition. Patient picked up by friend and walked downstairs by DESKIDDING MACHINE OPERATOR. All paperwork and discharge instructions given to patient prior to discharge.
== END 2020-07-31 16:35 | disposition home or self-care (01) | DRG 641 ==
LOC: ER 20:06 → TELE 22:14 → MED 07-31 00:25
PROVIDERS: ADMIT Nurse Practitioner Acute Care
DX: E86.0 Dehydration (principal); C20 Malignant neoplasm of rectum; E87.1 Hypo-osmolality and hyponatremia; E87.6 Hypokalemia; Z88.1 Allergy status to other antibiotic agents; G62.0 Drug-induced polyneuropathy; Z87.442 Personal history of urinary calculi; Y92.9 Unspecified place or not applicable; T45.1X5A Adverse effect of antineoplastic and immunosuppressive drugs, initial encounter; D25.9 Leiomyoma of uterus, unspecified; E87.2 Acidosis; R11.2 Nausea with vomiting, unspecified; E88.09 Other disorders of plasma-protein metabolism, not elsewhere classified; R19.7 Diarrhea, unspecified
CPT/HCPCS: 36415; 71045-TC; 80048-TC; 80053-TC; 80061-TC; 81001; 82248-TC; 83605-TC; 83735-TC; 84100-TC; 84484-TC; 85025-TC; 87040-TC; 87045-TC; 87081-TC; 87086-TC; 87177; 87209; C9803; G0378; J0692; J2405; J3370; J3480; J7030; J7040; J7050; J7060

== ENCOUNTER 2020-08-16 07:41 | Inpatient (IN) | payer BC ==
[~2020-08-16] VITALS: Ht 154.9 cm; Wt 42.2 kg
--- NOTE | 2020-08-16 08:05 | NUR ---
THE PATIENT IS BIBS FOR C/O GENERALIZED WEAKNESS, DIARRHEA X 2 WEEKS SINCE GETTING DISCHARGED. THE PATIENT IS ALERT AND ORIENTED X4. DENIES PAIN. IN ROOM AIR AND DENIES SOB. RESPIRATION REGULAR AND UNLABORED. THE PATIENT IS ATTACHED ON A MONITOR, PROVIDED WITH WARM BLANEKTS FOR COMFORT. WILL CONTINUE TO MONITOR.
[2020-08-16] MEDS ORDERED: IV NS 0.9% 1,000 ML BAG IV ONE (08:30)
[2020-08-16 08:34] LABS: BASOPHILS % (AUTO) 0.2 % (0.0-2.0); EOSINOPHILS % (AUTO) 0.9 % (0.0-6.0); HEMATOCRIT 44 % (33-45); HEMOGLOBIN 14.6 g/dL (11.5-14.8); LYMPHOCYTES # (AUTO) 1.3 /CMM (0.8-4.8); MEAN CORPUSCULAR HGB CONC 33 g/dl (31.0-36.0); MEAN CORPUSCULAR VOLUME 109 fL (82-100); MONOCYTES % (AUTO) 9.2 % (2.0-12.0); NEUTROPHILS # (AUTO) 8.9 /CMM (1.8-8.9); NEUTROPHILS % (AUTO) 78.7 % (43.0-81.0); PLATELET COUNT (AUTO) 280 /CMM (150-450); RED BLOOD CELL COUNT(AUTO) 4.05 MIL/uL (4.0-5.2); WHITE BLOOD COUNT (AUTO) 11.4 K/uL (4.3-11.0)
[2020-08-16 09:16] LABS: CARBON DIOXIDE 21 mmol/L (21-32); CHLORIDE 102 mmol/L (98-107); CREATININE 0.8 mg/dL (0.6-1.3); GLUCOSE 117 mg/dL (74-106); POTASSIUM 3.5 mmol/L (3.5-5.1); SODIUM SERUM 134 mmol/L (136-145); UREA NITROGEN, BLOOD 8 mg/dL (7-18)
[2020-08-16 09:21] LABS: ALANINE AMINOTRANSFERASE 6 U/L (12-78); ALBUMIN 1.7 g/dL (3.4-5.0); ALKALINE PHOSPHATASE 50 U/L (46-116); ASPARTATE AMINOTRANSFERASE 29 U/L (15-37); BILIRUBIN,DIRECT 0.2 mg/dL (0.0-0.2); TOTAL PROTEIN, SERUM 5.8 g/dL (6.4-8.2)
[2020-08-16] MEDS ORDERED: IV NS 0.9% 250 ML IV ONE (09:29)
[2020-08-16] MEDS ORDERED: IOHEXOL-300 100 ML VIAL IV ONE (09:29)
[2020-08-16] MEDS ORDERED: CT SWABBABLE VALVE TRANS SET 1 EA INFUS.SET MC ONE (09:29)
[2020-08-16 09:41] LABS: BILIRUBIN,TOTAL 0.5 mg/dL (0.2-1.0); CALCIUM, SERUM 7.3 mg/dL (8.5-10.1)
--- NOTE | 2020-08-16 09:44 | NUR ---
THE PATIENT IS TAKEN TO A RADIOLOGY DEPARTMENT.
[2020-08-16] MEDS ORDERED: METR-147 PO (10:31)
[2020-08-16] MEDS ORDERED: VANC125C11 PO (10:31)
[2020-08-16] MEDS ORDERED: CAPE500T15 PO (10:31)
--- NOTE | 2020-08-16 11:21 | NUR ---
COVID SWAB DONE AND TAKEN IT TO THE LAB
--- NOTE | 2020-08-16 11:24 | NUR ---
PAGED [facility].
--- NOTE | 2020-08-16 11:36 | NUR ---
PATIENT REPORT GIVEN NURSE
[2020-08-16] MEDS ORDERED: MAGNESIUM HYDROXIDE 30 ML UDC PO PRN (12:00)
[2020-08-16] MEDS ORDERED: ACETAMINOPHEN 325 MG TABLET PO PRN (12:00)
[2020-08-16] MEDS ORDERED: ONDANSETRON HCL/PF 4 MG/2 ML VIAL IVP PRN (12:00)
[2020-08-16] MEDS ORDERED: Z GUARD REMEDY 2 OZ OINT TP PRN (12:00)
[2020-08-16] MEDS ORDERED: ZOLPIDEM TARTRATE 5 MG TABLET PO PRN (12:00)
[2020-08-16] MEDS ORDERED: MAG HYDROX/AL HYDROX/SIMETH 30 ML UDC PO PRN (12:00)
[2020-08-16] MEDS ORDERED: HYDROCODONE/APAP 5/325MG TABLET PO PRN (12:00)
--- NOTE | 2020-08-16 12:14 | NUR ---
report given to edith jain / edith mg for pamela
--- NOTE | 2020-08-16 12:25 | NUR ---
pt transported to [facility] with emt at bedside. pt is in stable condition for transport.
--- NOTE | 2020-08-16 12:35 | NUR ---
MS NURSING NOTE REPORT RECEIVED FROM MERARI IN ER. RECEIVED IN BED A/OX4 WITHOUT ANY S/S OF DISTRESS AND NO. C/O PAIN BP 114/82, PULSE 100, TEMP. 97.8 AND SATURATING IN 98% RA. SAFETY PRECAUTION IN PLACE. BED LOWEST POSITION, BRAKES LOCKED, AND CALL LIGHT WITHIN REACH.WILL CONTINUE TO MONITOR
[2020-08-16 16:00] VITALS: BP 94/66
[2020-08-16] MEDS: METRONIDAZOLE 500MG/ NS 100ML 500 MG in PREMIX 1 EA IV SCH (17:20)
[2020-08-16] MEDS: VANCOMYCIN HCL 125 MG/2.5 ML ORAL.SUSP PO SCH (17:28)
[2020-08-16] MEDS: IV NS 0.9% 1,000 ML IV PRN (17:29)
--- NOTE | 2020-08-16 19:07 | NUR ---
RN CLOSING NOTES PT IS RESTING IN BED COMFORTABLY. PT A/OX4. NO SOB NOTED AT THE MOMENT. NO S/S OF DISTRESS NO SIGNIFICANT CHANGE SINCE LAST SHIFT. ALL NEEDS MET AND ATTENDED. SAFETY PRECAUTIONS IN PLACE: BED IN LOWEST POSITION, BRAKES LOCKED, SIDE RAILS UP X2, HOB ELEVATED AND CALL LIGHT WITHIN REACH. WILL ENDORSE TO NIGHT NURSE FOR XAVI.
--- NOTE | 2020-08-16 19:30 | NUR ---
MS RN OPENING NOTE PATIENT RESTING IN BED, AWAKE, A/O X4. PATIENT ABLE TO MAKE NEEDS KNOWN. NO S/S OF RESPIRATORY DISTRESS NOTED, BREATHING EVEN AND UNLABORED. TOLERATING ROOM AIR WITH 98% O2 SATURATION. SAFETY PRECAUTIONS IN PLACE: BED IN LOCKED AND LOWEST POSITION, SIDE RAILS UP X 2, CALL LIGHT WITHIN REACH. ENCOURAGED PATIENT TO USE CALL LIGHT IF IN NEED OF ANYTHING. IV SITE PATENT AND INTACT. WILL CONTINUE TO MONITOR PATIENT CLOSELY THROUGHOUT THE SHIFT.
[2020-08-16 20:00] VITALS: BP 111/78
[2020-08-16 22:00] VITALS: BP 111/66
[2020-08-16 23:47] LABS: BILIRUBIN,URINE SMALL (NEGATIVE); COLOR,URINE YELLOW (YELLOW); LEUKOCYTE ESTERASE ,URINE TRACE (NEGATIVE); NITRITE, URINE NEGATIVE (NEGATIVE); PH,URINE 6.5 (5.0-8.0); PROTEIN,URINE 30 mg/dl (NEGATIVE); UGLUCOSE NEGATIVE (NEGATIVE); UROBILINOGEN,URINE 0.2 EU/dL (0.2)
[2020-08-17] MEDS: METRONIDAZOLE 500MG/ NS 100ML 500 MG in PREMIX 1 EA IV SCH ×3 (00:11→16:32)
[2020-08-17] MEDS: VANCOMYCIN HCL 125 MG/2.5 ML ORAL.SUSP PO SCH ×4 (00:11→17:34)
[2020-08-17 00:52] LABS: BACTERIA,URINE Moderate /HPF (None Seen); SQUAMOUS EPITHELIAL CELL,UR Few /HPF (None Seen); WBC,URINE 21-50 /HPF (0-3)
[2020-08-17 06:33] LABS: BASOPHILS % (AUTO) 0.2 % (0.0-2.0); EOSINOPHILS % (AUTO) 0.8 % (0.0-6.0); HEMATOCRIT 37 % (33-45); HEMOGLOBIN 12.1 g/dL (11.5-14.8); LYMPHOCYTES # (AUTO) 0.9 /CMM (0.8-4.8); LYMPHOCYTES % (AUTO) 8.7 % (20.0-44.0); MEAN CORPUSCULAR HGB CONC 33 g/dl (31.0-36.0); MEAN CORPUSCULAR VOLUME 110 fL (82-100); MONOCYTES % (AUTO) 9.3 % (2.0-12.0); NEUTROPHILS # (AUTO) 8.5 /CMM (1.8-8.9); PLATELET COUNT (AUTO) 218 /CMM (150-450); RED BLOOD CELL COUNT(AUTO) 3.35 MIL/uL (4.0-5.2); WHITE BLOOD COUNT (AUTO) 10.5 K/uL (4.3-11.0)
[2020-08-17 06:54] LABS: ALBUMIN 1.5 g/dL (3.4-5.0); BILIRUBIN,TOTAL 0.4 mg/dL (0.2-1.0); CALCIUM, SERUM 7.5 mg/dL (8.5-10.1); CREATININE 0.6 mg/dL (0.6-1.3); MAGNESIUM 2.2 mg/dL (1.8-2.4); PHOSPHORUS 4.2 mg/dL (2.5-4.9); POTASSIUM 3.3 mmol/L (3.5-5.1); TOTAL PROTEIN, SERUM 5.2 g/dL (6.4-8.2)
--- NOTE | 2020-08-17 06:56 | NUR ---
MS RN OPENING NOTE PATIENT RESTING IN BED, AWAKE, A/O X4. PATIENT ABLE TO MAKE NEEDS KNOWN. NO S/S OF RESPIRATORY DISTRESS NOTED, BREATHING EVEN AND UNLABORED. TOLERATING ROOM AIR WITH 99% O2 SATURATION. ALL NEEDS MET AND ATTENDED. ATB THERAPY CARRIED OUT. SAFETY PRECAUTIONS IN PLACE: BED IN LOCKED AND LOWEST POSITION, SIDE RAILS UP X 2, CALL LIGHT WITHIN REACH. ENCOURAGED PATIENT TO USE CALL LIGHT IF IN NEED OF ANYTHING. IV SITE PATENT AND INTACT. WILL ENDORSE TO DAY SHIFT NURSE FOR XAVI.
--- NOTE | 2020-08-17 07:30 | NUR ---
RN MS NOTES PT IN BED, AWAKE, ALERT AND ORIENTED, NO COMPLAINT OF PAIN OR ANY DISCOMFORT, RESPIRATIONS NORMAL, WATCHING TV, CALL LIGHT WITHIN REACH, IV FLUIDS INFUSING WELL, ASSISTED TO BATHROOM NEEDED, PLAN OF CARE DISCUSSED WITH PT, VERBALIZED UNDERSTANDING.
[2020-08-17] MEDS ORDERED: POTASSIUM CHLORIDE 20 MEQ TAB.PRT.SR PO ONE (09:30)
[2020-08-17] MEDS: IV NS 0.9% 1,000 ML IV PRN (12:19)
--- NOTE | 2020-08-17 16:02 | NUR ---
RN MS NOTES PATIENT ENDORSED TO RICK RN FOR CONTINUITY OF CARE.
[2020-08-17] MEDS: ENSURE CLEAR 237 ML LIQUID (MIX BERRY) PO SCH ×2 (17:33→17:34)
--- NOTE | 2020-08-17 18:55 | NUR ---
MS RN CLOSING NOTES PT IS RESTING IN BED COMFORTABLY. PT A/OX4. NO SOB NOTED AT THE MOMENT. NO S/S OF DISTRESS NO SIGNIFICANT CHANGE SINCE LAST SHIFT. PATIENT HAS R HAND 20 GAUGE NS @ 75 ML/HR. CBC, CMP IN AM. ALL NEEDS MET AND ATTENDED. SAFETY PRECAUTIONS IN PLACE: BED IN LOWEST POSITION, BRAKES LOCKED, SIDE RAILS UP X2, HOB ELEVATED AND CALL LIGHT WITHIN REACH. WILL ENDORSE TO INDEPENDENT CONSULTANT
--- NOTE | 2020-08-17 19:01 | NUR ---
RN MS opening notes Received Pt from morning nurse. Pt is laying in bed comfortably watching TV. Pt is alert and orientedX4. Respiration is normal in room air. No SOB. No S/S of distress noted. R hand# 20 is clean, intact and infusing well NS@ 75 ml/hr. Safety precautions is maintained. Bed at low position, brakes locked, side rails upX2, hob elevated and call light is within reach. Will continue to monitor.
[2020-08-17 20:00] VITALS: BP 119/77
--- NOTE | 2020-08-17 20:45 | NUR ---
RN Ms closing notes Transferred XAVI to ARIADNE Leary.
--- NOTE | 2020-08-17 20:46 | NUR ---
MS RN OPENING NOTE RECEIVED REPORT FROM JEREMY RON. RECEIVED PATIENT IN BED. A/OX4. TOLERATING ROOM AIR. RESPIRATIONS ARE EVEN AND UNLABORED. NO S/S SOB NOTED. NO C/O PAIN AT THIS TIME. IN NO APPARENT DISTRESS. IV ACCESS IN RIGHT HAND #20 RUNNING NS@75ML/HR, RIGHT CHEST WALL PERMACATH IS PRESENT. BED IS LOW AND LOCKED, HOB FLAT, SIDE RIAL SUP X2, CALL LIGHT WITHIN REACH. WILL CONTINUE TO MONITOR THROUGHOUT SHIFT.
[2020-08-18] MEDS: METRONIDAZOLE 500MG/ NS 100ML 500 MG in PREMIX 1 EA IV SCH ×3 (00:03→16:42)
[2020-08-18] MEDS: VANCOMYCIN HCL 125 MG/2.5 ML ORAL.SUSP PO SCH ×4 (00:04→18:01)
[2020-08-18 05:57] LABS: BASOPHILS % (AUTO) 0.2 % (0.0-2.0); EOSINOPHILS % (AUTO) 0.9 % (0.0-6.0); HEMATOCRIT 37 % (33-45); HEMOGLOBIN 12.1 g/dL (11.5-14.8); LYMPHOCYTES # (AUTO) 1.2 /CMM (0.8-4.8); LYMPHOCYTES % (AUTO) 11.7 % (20.0-44.0); MEAN CORPUSCULAR HGB CONC 33 g/dl (31.0-36.0); MEAN CORPUSCULAR VOLUME 110 fL (82-100); MONOCYTES % (AUTO) 9.1 % (2.0-12.0); NEUTROPHILS # (AUTO) 8.2 /CMM (1.8-8.9); NEUTROPHILS % (AUTO) 78.1 % (43.0-81.0); PLATELET COUNT (AUTO) 225 /CMM (150-450); RED BLOOD CELL COUNT(AUTO) 3.36 MIL/uL (4.0-5.2); WHITE BLOOD COUNT (AUTO) 10.5 K/uL (4.3-11.0)
--- NOTE | 2020-08-18 06:18 | NUR ---
MS RN CLOSING NOTE PATIENT IN BED. A/OX4. REMAINS TOLERATING ROOM AIR. NO RESP DISTRESS NOTED. NO C/O PAIN THROUGHOUT SHIFT. DID HAVE AN EPISODE OF NAUSEA WAS RELIEVED WITH ZOFRAN. NO DISTRESS. IV ACCESS CHANGED TO LEFT WRIST #20 RUNNING NS@75ML/HR. BED REMAINS LOW AND LOCKED, HOB FLAT, SIDE RIAL SUP X2, CALL LIGHT WITHIN REACH. WILL ENDORSE TO ONCOMING SHIFT.
[2020-08-18 06:55] LABS: ALBUMIN 1.6 g/dL (3.4-5.0); BILIRUBIN,TOTAL 0.3 mg/dL (0.2-1.0); CALCIUM, SERUM 7.5 mg/dL (8.5-10.1); CREATININE 0.6 mg/dL (0.6-1.3); POTASSIUM 3.7 mmol/L (3.5-5.1); TOTAL PROTEIN, SERUM 5.2 g/dL (6.4-8.2)
--- NOTE | 2020-08-18 07:02 | NUR ---
MS RN OPENING NOTE RECEIVED PATIENT AWAKE IN BED. A/O X4. PATIENT IS STABLE ON ROOM AIR. NO SOB NOTED. NO S/S OF RESPIRATORY DISTRESS. PATIENT IS AMBULATORY WITH BRP. PATIENT HAS NO C/O PAIN AT THIS TIME. IV ACCESS IN LEFT WRIST #20, RUNNING NS @ 75 ML/HR. IV IS INTACT AND PATENT. SAFETY MEASURES MAINTAINED. BED IN LOWEST LOCKED POSITION. SIDE RAILS UP X2. CALL LIGHT AND TABLE WITHIN REACH. WILL CONTINUE WITH PLAN OF CARE.
[2020-08-18 08:00] VITALS: BP 111/79
[2020-08-18] MEDS: ENSURE CLEAR 237 ML LIQUID (MIX BERRY) PO SCH ×3 (08:09→16:46)
[2020-08-18] MEDS: IV NS 0.9% 1,000 ML IV PRN (08:14)
--- NOTE | 2020-08-18 11:47 | NUR ---
RECEIVED ORDERS FROM DR. PACK TO ADVANCE PT'S DIET TOLERATED. ORDERS READ BACK, ENTERED, AND CARRIED OUT. PT'S DIET WAS ADVANCED FROM CLEAR LIQUID TO FULL LIQUID AT THIS TIME. WILL CONTINUE TO MONITOR.
[2020-08-18 16:00] VITALS: BP 97/64
--- NOTE | 2020-08-18 16:53 | NUR ---
PATIENT TOLERATED FULL LIQUID DIET WELL. ADVANCED PATIENTS DIET FROM FULL LIQUID TO SOFT DIET. WILL CONTINUE TO MONITOR.
--- NOTE | 2020-08-18 18:19 | NUR ---
MS RN CLOSING NOTE PATIENT RESTING COMFORTABLY IN BED WITH EYES OPEN. A/O X4. PATIENT IS AMBULATORY WITH BRP. PATIENT IS STABLE ON ROOM AIR. NO SOB NOTED. NO S/S OF RESPIRATORY DISTRESS. IV ACCESS IS INTACT AND PATENT, NS RUNNING AT 75 ML/HR. ALL NEEDS HAVE BEEN MET. NO C/O PAIN THROUGHOUT THE SHIFT. SAFETY PRECAUTIONS MAINTAINED AT ALL TIMES. BED IN LOWEST LOCKED POSITION, SIDE RAILS UP X2. CALL LIGHT AND TABLE WITHIN REACH. WILL ENDORSE TO ONCOMING NURSE FOR CONTINUITY OF CARE.
--- NOTE | 2020-08-18 19:30 | NUR ---
MS RN OPENING NOTE PATIENT AWAKE, A/O X4. PATIENT ABLE TO MAKE NEEDS KNOWN. NO S/S OF RESPIRATORY DISTRESS, C/O OF PAIN/DISCOMFORT AT THIS TIME. IV ACCESS PATENT AND INTACT, IV FLUIDS INFUSING. PATIENT TOLERATING ROOM AIR. SAFETY PRECAUTIONS IN PLACE: SIDE RAILS UP, BED IN LOCKED AND LOWEST POSITION, CALL LIGHT WITHIN REACH. ENCOURAGED PATIENT TO USE CALL LIGHT IF IN NEED. WILL CONTINUE TO MONITOR THROUGHOUT THE SHIFT.
[2020-08-18 19:52] VITALS: BP 95/68
[2020-08-18 20:00] VITALS: BP 95/68
[2020-08-19] MEDS: METRONIDAZOLE 500MG/ NS 100ML 500 MG in PREMIX 1 EA IV SCH ×3 (00:19→17:38)
[2020-08-19] MEDS: VANCOMYCIN HCL 125 MG/2.5 ML ORAL.SUSP PO SCH ×4 (00:19→17:38)
[2020-08-19] MEDS: IV NS 0.9% 1,000 ML IV PRN ×2 (03:28→20:11)
--- NOTE | 2020-08-19 06:52 | NUR ---
MS RN CLOSING NOTE PATIENT RESTING IN BED, EASILY AROUSABLE, A/O X4. NO S/S OF RESPIRATORY DISTRESS, C/O OF PAIN/DISCOMFORT AT THIS TIME. IV ACCESS PATENT AND INTACT, IV FLUIDS INFUSING WELL. PATIENT TOLERATING ROOM AIR. ALL NEEDS MET AND ATTENDED. ALL ROUTINE MEDS CARRIED OUT. SAFETY PRECAUTIONS IN PLACE: SIDE RAILS UP, BED IN LOCKED AND LOWEST POSITION, CALL LIGHT WITHIN REACH. WILL ENDORSE TO DAY SHIFT NURSE FOR XAVI.
--- NOTE | 2020-08-19 07:20 | NUR ---
MS OPENING NOTE PATIENT RESTING IN BED, A/O X 4. NO SIGNS OF ACUTE DISTRESS OR SOB NOTED. BREATHING EVEN AND UNLABORED. NO REPORTS OF PAIN AT THIS TIME. SAFETY MEASURES IN PLACE, BED LOCKED AND IN LOWEST POSITION, SIDE RAILS UP X 2 AND CALL LIGHT WITHIN REACH. WILL CONTINUE TO MONITOR
[2020-08-19 08:00] VITALS: BP 96/68
[2020-08-19] MEDS: ENSURE CLEAR 237 ML LIQUID (MIX BERRY) PO SCH ×3 (08:04→17:38)
[2020-08-19 16:00] VITALS: BP 97/61
--- NOTE | 2020-08-19 18:52 | NUR ---
MS CLOSING NOTES PATIENT RESTING IN BED, A/O X 4. NO SIGNS OF ACUTE DISTRESS OR SOB NOTED. BREATHING EVEN AND UNLABORED. NO REPORTS OF PAIN AT THIS TIME. SAFETY MEASURES IN PLACE, BED LOCKED AND IN LOWEST POSITION, SIDE RAILS UP X 2 AND CALL LIGHT WITHIN REACH. NEEDS ATTENDED TO. PATIENT TOLERATING CURRENT DIET WELL. IV ACCESS PATENT AND INTACT, IV FLUIDS INFUSING WELL. WILL ENDORSE TO NIGHT NURSE FOR CONTINUITY OF CARE
--- NOTE | 2020-08-19 19:30 | NUR ---
MS RN OPENING NOTE PATIENT AWAKE, A/O X4. PATIENT ABLE TO MAKE NEEDS KNOWN. NO S/S OF RESPIRATORY DISTRESS, C/O OF PAIN/DISCOMFORT AT THIS TIME. IV ACCESS PATENT AND INTACT, IV FLUIDS INFUSING. PATIENT TOLERATING ROOM AIR. PATIENT DOES NOT REPORT OF NAUSEA. SAFETY PRECAUTIONS IN PLACE: SIDE RAILS UP, BED IN LOCKED AND LOWEST POSITION, CALL LIGHT WITHIN REACH. ENCOURAGED PATIENT TO USE CALL LIGHT IF IN NEED. WILL CONTINUE TO MONITOR THROUGHOUT THE SHIFT.
[2020-08-19 20:00] VITALS: BP 99/69
[2020-08-20] MEDS: VANCOMYCIN HCL 125 MG/2.5 ML ORAL.SUSP PO SCH ×4 (00:07→17:06)
[2020-08-20] MEDS: METRONIDAZOLE 500MG/ NS 100ML 500 MG in PREMIX 1 EA IV SCH ×3 (00:41→16:12)
--- NOTE | 2020-08-20 02:30 | NUR ---
MS RN NOTE PATIENT SEEN BY DR. PETERSEN. NO NEW ORDERS GIVEN.
--- NOTE | 2020-08-20 06:38 | NUR ---
MS RN CLOSING NOTE PATIENT RESTING IN BED, A/O X4, AROUSED EASILY. PATIENT ABLE TO MAKE NEEDS KNOWN. NO S/S OF RESPIRATORY DISTRESS, C/O OF PAIN/DISCOMFORT AT THIS TIME. IV ACCESS PATENT AND INTACT, IV FLUIDS INFUSING. ATB THERAPY GIVEN. ROUTINE MEDS CARRIED OUT. PATIENT TOLERATING ROOM AIR. ALL NEEDS MET AND ATTENDED. SAFETY PRECAUTIONS MAINTAINED: SIDE RAILS UP, BED IN LOCKED AND LOWEST POSITION, CALL LIGHT WITHIN REACH. WILL ENDORSE TO DAY SHIFT NURSE.
--- NOTE | 2020-08-20 07:30 | NUR ---
MS RN OPENING NOTE PATIENT AWAKE, A/O X4. PATIENT ABLE TO MAKE NEEDS KNOWN. NO S/S OF RESPIRATORY DISTRESS, C/O OF PAIN/DISCOMFORT AT THIS TIME. IV ACCESS PATENT AND INTACT, IV FLUIDS INFUSING. PATIENT TOLERATING ROOM AIR. PATIENT IS ABLE TO MAKE NEEDS KNOWN. PER REPORT PATIENT IS ON SOFT DIET. SAFETY PRECAUTIONS IN PLACE: SIDE RAILS UP, BED IN LOCKED AND LOWEST POSITION, CALL LIGHT WITHIN REACH. ENCOURAGED PATIENT TO USE CALL LIGHT IF IN NEED. WILL CONTINUE TO MONITOR THROUGHOUT THE SHIFT.
[2020-08-20 08:00] VITALS: BP 95/65
[2020-08-20] MEDS: ENSURE CLEAR 237 ML LIQUID (MIX BERRY) PO SCH ×3 (08:47→16:12)
--- NOTE | 2020-08-20 14:10 | NUR ---
RN NOTE SPOKE WITH PATIENT REGARDING ADVANCING DIET TO REGULAR. PATIENT IS CURRENTLY ON SOFT. PATIENT REQUESTED TO CONTINUE CURRENT DIET OF SOFT TEXTURE.
[2020-08-20 16:00] VITALS: BP 114/73
--- NOTE | 2020-08-20 18:35 | NUR ---
MS RN CLOSING NOTE PATIENT RESTING IN BED, A/O X4, AROUSED EASILY. PATIENT ABLE TO MAKE NEEDS KNOWN. NO S/S OF RESPIRATORY DISTRESS, NO C/O OF PAIN/DISCOMFORT AT THIS TIME. PATIENT STILL CONTINUES SAME DIET (SOFT) PER PATIENTS REQUEST. IV ACCESS PATENT AND INTACT, IV FLUIDS INFUSING. ATB THERAPY GIVEN. ROUTINE MEDS CARRIED OUT. PATIENT TOLERATING ROOM AIR. ALL NEEDS MET AND ATTENDED. SAFETY PRECAUTIONS MAINTAINED: SIDE RAILS UP, BED IN LOCKED AND LOWEST POSITION, CALL LIGHT WITHIN REACH.
[2020-08-20 20:00] VITALS: BP 112/72
[2020-08-20] MEDS: IV NS 0.9% 1,000 ML IV PRN (22:14)
[2020-08-21] MEDS: METRONIDAZOLE 500MG/ NS 100ML 500 MG in PREMIX 1 EA IV SCH (00:24)
[2020-08-21] MEDS: VANCOMYCIN HCL 125 MG/2.5 ML ORAL.SUSP PO SCH ×3 (00:24→13:46)
--- NOTE | 2020-08-21 05:54 | NUR ---
MS RN CLOSING NOTES: PATIENT IN BED,AWAKE, A/O X4. NO S/S OF DISTRESS NOTED. CALL LIGHT WITHIN REACH. BED IN LOWEST AND LOCKED POSITION. HAD 6X EPISODES OF DIARRHEA DURING THE SHIFT. CONTACT PRECAUTION FOR C-DIFF OBSERVED AT ALL TIMES. PATIENT IS AMBULATORY WITH STEADY GAIT. NO COMPLAIN OF PAIN DURING THE SHIFT.RESTED THROUGHOUT THE NIGHT.
[2020-08-21 08:22] VITALS: BP 110/79
[2020-08-21] MEDS: ENSURE CLEAR 237 ML LIQUID (MIX BERRY) PO SCH ×2 (08:33→12:00)
[2020-08-21] MEDS: METRONIDAZOLE 500 MG TABLET PO SCH ×2 (08:58→13:46)
[2020-08-21] MEDS ORDERED: METRONIDAZOLE 500 MG TABLET PO SCH (09:00)
[2020-08-21 10:44] LABS: BASOPHILS % (AUTO) 0.2 % (0.0-2.0); EOSINOPHILS % (AUTO) 0.5 % (0.0-6.0); HEMATOCRIT 37 % (33-45); HEMOGLOBIN 12.2 g/dL (11.5-14.8); LYMPHOCYTES # (AUTO) 0.6 /CMM (0.8-4.8); LYMPHOCYTES % (AUTO) 8.1 % (20.0-44.0); MEAN CORPUSCULAR HGB CONC 33 g/dl (31.0-36.0); MEAN CORPUSCULAR VOLUME 108 fL (82-100); MONOCYTES # (AUTO) 0.7 /CMM (0.1-1.30); MONOCYTES % (AUTO) 8.7 % (2.0-12.0); NEUTROPHILS # (AUTO) 6.6 /CMM (1.8-8.9); NEUTROPHILS % (AUTO) 82.5 % (43.0-81.0); PLATELET COUNT (AUTO) 247 /CMM (150-450); RED BLOOD CELL COUNT(AUTO) 3.42 MIL/uL (4.0-5.2)
[2020-08-21 10:46] LABS: CALCIUM, SERUM 7.3 mg/dL (8.5-10.1); CREATININE 0.6 mg/dL (0.6-1.3); POTASSIUM 3.3 mmol/L (3.5-5.1)
[2020-08-21] MEDS ORDERED: POTASSIUM CHLORIDE 20 MEQ TAB.PRT.SR PO ONE (14:30)
== END 2020-08-21 15:00 | disposition home or self-care (01) | DRG 375 ==
LOC: ER 07:45 → TELE 12:04 → MED 12:14
PROVIDERS: ADMIT Internal Medicine; ATTEND Nurse Practitioner Acute Care
DX: C20 Malignant neoplasm of rectum (principal); K56.609 Unspecified intestinal obstruction, unspecified as to partial versus complete obstruction; N13.2 Hydronephrosis with renal and ureteral calculous obstruction; N39.0 Urinary tract infection, site not specified; C77.5 Secondary and unspecified malignant neoplasm of intrapelvic lymph nodes; C79.82 Secondary malignant neoplasm of genital organs; E44.0 Moderate protein-calorie malnutrition; A04.72 Enterocolitis due to Clostridium difficile, not specified as recurrent; K63.3 Ulcer of intestine; E87.1 Hypo-osmolality and hyponatremia; D25.9 Leiomyoma of uterus, unspecified; Z20.822 Contact with and (suspected) exposure to COVID-19; Z88.1 Allergy status to other antibiotic agents; Z79.899 Other long term (current) drug therapy; K80.20 Calculus of gallbladder without cholecystitis without obstruction; D72.829 Elevated white blood cell count, unspecified; D64.9 Anemia, unspecified; D47.3 Essential (hemorrhagic) thrombocythemia; G62.0 Drug-induced polyneuropathy; T45.1X5A Adverse effect of antineoplastic and immunosuppressive drugs, initial encounter; Y92.009 Unspecified place in unspecified non-institutional (private) residence as the place of occurrence of the external cause; Z87.442 Personal history of urinary calculi; G89.29 Other chronic pain; E86.1 Hypovolemia
CPT/HCPCS: 36415; 71045-TC; 80048-TC; 80053-TC; 80061-TC; 80076-TC; 81001; 83605-TC; 83735-TC; 84100-TC; 84484-TC; 85025-TC; 85730-TC; 87040-TC; 87045-TC; 87081-TC; 87086-TC; A4216; G0378; J2405; J7030; J7040; J7050; Q9967

== ENCOUNTER 2020-08-28 15:45 | Inpatient (IN) | payer BC ==
[~2020-08-28] VITALS: Ht 154.9 cm; Wt 44.9 kg
[~2020-08-28 15:45] MED LIST: CAPE500T15 PO; METR-147 PO; VANC125C11 PO
--- NOTE | 2020-08-28 16:11 | NUR ---
BIBS FROM HOME TO ER BED 12. AAOX4. NOT IN RESP DISTRESS, BREATHING EVEN AND UNLABORED. CAME IN FOR GENERALIZED WEAKNESS AND STILL HAVING POOR ORAL INTAKE SINCE SHE GOT DISCHARGED FROM THE HOSPITAL ON AUG 21. PT IS NOTED TACHYCARDIC 115. MD WAS AT THE BEDSIDE FOR EVAL. ORDERS RECEIVED, NOTED AND CARRIED OUT.
[2020-08-28] MEDS ORDERED: NS 0.9% IV ONE (17:30)
[2020-08-28 18:40] LABS: BASOPHILS # (AUTO) 0.1 /CMM (0.0-0.2); HEMATOCRIT 42 % (33-45); HEMOGLOBIN 13.6 g/dL (11.5-14.8); LYMPHOCYTES # (AUTO) 0.5 /CMM (0.8-4.8); LYMPHOCYTES % (AUTO) 3.6 % (20.0-44.0); MEAN CORPUSCULAR HGB CONC 33 g/dl (31.0-36.0); MEAN CORPUSCULAR VOLUME 108 fL (82-100); MONOCYTES # (AUTO) 0.9 /CMM (0.1-1.30); MONOCYTES % (AUTO) 5.7 % (2.0-12.0); NEUTROPHILS # (AUTO) 13.5 /CMM (1.8-8.9); NEUTROPHILS % (AUTO) 89.7 % (43.0-81.0); PLATELET COUNT (AUTO) 316 /CMM (150-450); RED BLOOD CELL COUNT(AUTO) 3.86 MIL/uL (4.0-5.2)
[2020-08-28 18:48] LABS: CALCIUM, SERUM 7.9 mg/dL (8.5-10.1); CREATININE 0.6 mg/dL (0.6-1.3); POTASSIUM 4.1 mmol/L (3.5-5.1)
[2020-08-28 18:54] LABS: ALBUMIN 1.5 g/dL (3.4-5.0); BILIRUBIN,DIRECT 0.1 mg/dL (0.0-0.2); BILIRUBIN,TOTAL 0.4 mg/dL (0.2-1.0); TOTAL PROTEIN, SERUM 5.9 g/dL (6.4-8.2)
[2020-08-28] MEDS ORDERED: VANCOMYCIN HCL 125 MG/2.5 ML ORAL.SUSP PO STA (18:59)
[2020-08-28] MEDS ORDERED: FLAGYL/NS RTU 500 MG/100 ML PIGGYBACK IV ONE (19:00)
[2020-08-28] MEDS ORDERED: METRONIDAZOLE 500MG/ NS 100ML 100 ML IV ONE (19:20)
[2020-08-28] MEDS ORDERED: POTA20TA10 PO (19:21)
--- NOTE | 2020-08-28 19:50 | NUR ---
md made aware that pt is still unable to urinate at this time. MD ordered to give another liter of NS. noted and carried out.
[2020-08-28 20:03] LABS: LYMPHOCYTES % (MANUAL) 5 % (16-48); MONOCYTES % (MANUAL) 5 % (0-11.0); NEUTROPHILS % (MANUAL) 90 (42-76)
--- NOTE | 2020-08-28 20:16 | NUR ---
LAB CALLED REGARDING NEGATIVE COVID RESULT.
--- NOTE | 2020-08-28 21:08 | NUR ---
REPORT GIVEN TO ARIADNE ROBERTS FOR [facility]
--- NOTE | 2020-08-28 21:10 | NUR ---
VERIFIED WITH MD IF 1 L NS STILL TO BE GIVEN. CANCELLED THE ORDER.
--- NOTE | 2020-08-28 21:22 | NUR ---
PT TRANSPORTED TO UNIT ON [facility] WITH EMT AT BEDSIDE ON STABLE CONDITION.
[2020-08-28 21:30] VITALS: BP 108/60
[2020-08-28] MEDS ORDERED: MAG HYDROX/AL HYDROX/SIMETH 30 ML UDC PO PRN (21:30)
[2020-08-28] MEDS ORDERED: HYDROCODONE/APAP 5/325MG TABLET PO PRN (21:30)
[2020-08-28] MEDS ORDERED: MORPHINE SULFATE INJ 2 MG/ML DISP.SYRIN IV PRN (21:30)
[2020-08-28] MEDS ORDERED: MAGNESIUM HYDROXIDE 30 ML UDC PO PRN (21:30)
[2020-08-28] MEDS ORDERED: ZOLPIDEM TARTRATE 5 MG TABLET PO PRN (21:30)
--- NOTE | 2020-08-28 21:30 | NUR ---
RELAY DISPATCHER NOTES, RECEIVED PATIENT FROM ER DEPARTMENT VIA STRETCHER IN COMPANY OF ONE RN, [facility] WITH ADMITTING DX OF C-DIF/GENERALIZED WEAKNESS, PATIENT A/O X4 ABLE TO VERBALIZED NEEDS AND CONCERNS, AT RA BREATHING EVEN AND UNLABORED, NO SOB/ACUTE DISTRESS NOTED, MED SURGE, IV ACCESS IN RIGHT WRIST 20G, PATENT AND INTACT, HAVING DIARRHEA AT THIS TIME, WITH DX OF C-DIF, WILL FOLLOW PROTOCOL FOR ISOLATION, AFEBRILE, SKIN INTACT, ALL NEEDS PROVIDED, CALL LIGHT W/I REACH, BED LOCKED AND IN LOWEST POSITION, S/ R UPX2, WILL CONTINUE TO MONITOR CLOSELY.
[2020-08-28] MEDS: IV NS 0.9% 1,000 ML IV PRN (22:20)
[2020-08-28] MEDS: VANCOMYCIN HCL 125 MG/2.5 ML ORAL.SUSP PO SCH (23:47)
--- NOTE | 2020-08-29 | NUR ---
RN NOTES, NO VANCOMYCIN PO DUE AT THIS TIME AND Q6HRS, NOT ADMINISTERED, MEDICATION NOT AVAILABLE, CONTACT IMAGE ASSEMBLER FERNANDA RON, MEDICATION NOT AVAILABLE IN NIGHT LOCKER, WILL FOLLOW UP WITH PHARMACY IN AM.
[2020-08-29 04:00] VITALS: BP 120/88
[2020-08-29] MEDS ORDERED: METRONIDAZOLE 500MG/ NS 100ML 500 MG in PREMIX 1 EA IV SCH ×2 (05:00→08:01)
[2020-08-29] MEDS ORDERED: METRONIDAZOLE 500MG/ NS 100ML 100 ML IV ONE (05:03)
[2020-08-29 06:09] LABS: BASOPHILS % (AUTO) 0.2 % (0.0-2.0); EOSINOPHILS % (AUTO) 0.4 % (0.0-6.0); HEMATOCRIT 37 % (33-45); HEMOGLOBIN 12.2 g/dL (11.5-14.8); LYMPHOCYTES # (AUTO) 0.7 /CMM (0.8-4.8); LYMPHOCYTES % (AUTO) 6.3 % (20.0-44.0); MEAN CORPUSCULAR HGB CONC 33 g/dl (31.0-36.0); MEAN CORPUSCULAR VOLUME 108 fL (82-100); MONOCYTES # (AUTO) 0.9 /CMM (0.1-1.30); MONOCYTES % (AUTO) 8.1 % (2.0-12.0); NEUTROPHILS # (AUTO) 9.6 /CMM (1.8-8.9); PLATELET COUNT (AUTO) 281 /CMM (150-450); RED BLOOD CELL COUNT(AUTO) 3.45 MIL/uL (4.0-5.2); WHITE BLOOD COUNT (AUTO) 11.3 K/uL (4.3-11.0)
--- NOTE | 2020-08-29 06:47 | NUR ---
RN CLOSING NOTES, PATIENT IN BED, NO SOB/ACUTE DISTRESS NOTED, NO SIGNIFICANT CHANGE IN CONDITION DURING THE NIGHT, MULTIPLE EPISODES OF DIARRHEA, AWAITING FOR VANCOMYCIN PO FROM PHARMACY TO ADMINISTER, WILL ENDORSE TO NEXT SHIFT
[2020-08-29 06:51] LABS: BILIRUBIN,TOTAL 0.3 mg/dL (0.2-1.0); CALCIUM, SERUM 7.2 mg/dL (8.5-10.1); CREATININE 0.5 mg/dL (0.6-1.3); POTASSIUM 3.5 mmol/L (3.5-5.1); TOTAL PROTEIN, SERUM 5.1 g/dL (6.4-8.2)
[2020-08-29 07:18] LABS: ALBUMIN 1.3 g/dL (3.4-5.0)
[2020-08-29 08:00] VITALS: BP 126/83
[2020-08-29] MEDS: VANCOMYCIN HCL 125 MG/2.5 ML ORAL.SUSP PO SCH ×3 (09:04→17:08)
--- NOTE | 2020-08-29 11:00 | NUR ---
RN NOTES GET REPORT FROM RN PATIENT A/O X3, GENERALIZED WEAKNESS, VVS, REFUSED PAIN. PATIENT HAVING LOOSE BM Q2HR, USING DIAPER, INFUSING NS AT 75 ML HR ON RIGHT WRIST INTACT. DUE MEDICATION ADMINISTERED, NO ACUTE RESPIRATORY DISTRESS, WILL MONITORING.
[2020-08-29] MEDS: IV NS 0.9% 1,000 ML IV PRN (12:43)
[2020-08-29] MEDS: ENSURE CLEAR 237 ML LIQUID (MIX BERRY) PO SCH ×2 (12:44→16:08)
[2020-08-29] MEDS: METRONIDAZOLE 500MG/ NS 100ML 500 MG in PREMIX 1 EA IV SCH ×2 (12:44→20:53)
[2020-08-29] MEDS ORDERED: ZOLPIDEM TARTRATE 5 MG TABLET PO PRN (13:00)
--- NOTE | 2020-08-29 13:11 | NUR ---
RN NOTES COLLECTED STOOL SPECIMEN CDIFF.CALLED LAB TELEGRAPH MECHANIC.
--- NOTE | 2020-08-29 18:07 | NUR ---
RN NOTES DUE MEDICATION ADMINISTERED, PATIENT POOR EATER, WAS COMPLAINING OF BLOATING IN THE LOWER ABDOMEN, V SS, TURN AND REPOSTION Q 2 HR. CALL LIGHT WITHIN TO REACH. INFUSING NS AT 75 M/LHR INTACT. ENDORSED ONCOMING NURSE FOLLOW PLAN OF CARE.
[2020-08-29] MEDS: ACETAMINOPHEN 325 MG TABLET PO PRN (18:43)
--- NOTE | 2020-08-29 18:43 | NUR ---
rn notes Administered Tylenol 650 mg po prn for lower abdominal pain 08/25 per patient request.
[2020-08-29 20:00] VITALS: BP 104/65
[2020-08-29] MEDS: CHOLESTYRAMINE/ASPARTAME 4 G/PKT PACKET PO SCH (21:16)
[2020-08-29] MEDS: VANCOMYCIN FOR RECTAL ENEMA 500 MG RC SCH (21:16)
--- NOTE | 2020-08-30 00:08 | NUR ---
report given to SHERWIN FOR [facility].
[2020-08-30 01:45] VITALS: BP 125/65
[2020-08-30] MEDS: IV NS 0.9% 1,000 ML IV PRN ×2 (02:00→19:24)
[2020-08-30 04:00] VITALS: BP 113/71
[2020-08-30] MEDS: METRONIDAZOLE 500MG/ NS 100ML 500 MG in PREMIX 1 EA IV SCH ×3 (04:30→21:09)
[2020-08-30] MEDS: VANCOMYCIN FOR RECTAL ENEMA 500 MG RC SCH ×3 (04:31→21:09)
[2020-08-30] MEDS: VANCOMYCIN HCL 125 MG/2.5 ML ORAL.SUSP PO SCH ×4 (05:00→18:27)
--- NOTE | 2020-08-30 06:50 | NUR ---
RN NOTES pt alert and oriented x4 no pain or discomfort noted or reported at this time. pt on room air tolerating well. all nursing needs met. all due medications administered and tolerated well. pt has iv access on the right wrist 20g running ns @75 ml/hr. no pain swelling or redness at iv site patent flushing well. call light within reach. safety precautions followed. will endorse care to day shift nurse.
--- NOTE | 2020-08-30 07:30 | NUR ---
RN OPENING NOTE RECEIVED PATIENT IN BED, A/OX4, WEAK, ON ROOM AIR, SPO2 100%, NO SOB, DISTRESS NOTED, IV LINE ON R WRIST NOTED, RUNNING NS @75 ML/HR, TOLERATING WELL, SKIN INTACT, BED LOCKED, IN LOWEST POSITON, CALL LIGHT IN REACH, HOB ELEVATED, WILL CONT TO MONITOR
[2020-08-30 08:00] VITALS: BP 104/67
[2020-08-30] MEDS: ENSURE CLEAR 237 ML LIQUID (MIX BERRY) PO SCH ×3 (08:58→16:49)
[2020-08-30] MEDS: CHOLESTYRAMINE/ASPARTAME 4 G/PKT PACKET PO SCH ×2 (09:45→21:09)
--- NOTE | 2020-08-30 11:59 | NUR ---
lab called in stated c diff positive Dr Calloway notified at present time no orders carried out
[2020-08-30] MEDS: ONDANSETRON HCL/PF 4 MG/2 ML VIAL IVP PRN (13:51)
[2020-08-30 16:00] VITALS: BP 103/71
--- NOTE | 2020-08-30 17:58 | NUR ---
unalble to urinated abdomen large and tender to touch bladder scan done with 700ml obtained notified re; bladder scan waiting for returning call back
--- NOTE | 2020-08-30 18:10 | NUR ---
called back and orders given
--- NOTE | 2020-08-30 19:15 | NUR ---
STRAIGHT Cath performed , output 700 cc
--- NOTE | 2020-08-30 19:35 | NUR ---
RN OPENING NOTES REC'D PT IN BED. A/O X4. ON ROOM AIR, TOLERATING WELL, NO RESP DISTRESS OR SOB NOTED. BREATHING EVEN AND UNLABORED. PT O2SAT OF 100% PT ON MED SURG MONITORING AND CONTACT/DROPLET ISOLATION PRECAUTIONS IN PLACE FOR POSITIVE CDIFF. PT HAS RIGHT WRIST #20 WITH NS 0.9% NS RUNNING AT 75ML/HR. NO S/S OF INFILTRATION NOTED. IV SITE FLUSHED. PT SAFETY MEASURES IN PLACE. HOB ELEVATED. SIDE RAILS UP X2. BED LOCKED IN LOWEST POSITION WITH BED ALARM ON. ALL NEEDS ATTENDED AT THIS TIME. CALL LIGHT WITHIN REACH WILL CONT TO MONITOR.
--- NOTE | 2020-08-31 | NUR ---
MS NEW CAR SALES MANAGER INITIAL NOTES RECEIVED PT FROM MS 1 , DX OF GENERAL WEAKNESS AND C-DIFF. PT IS ALERT ORIENTED X4, ON BED REST WITH IVF OF NS AT 75ML/HR INFUSING AT THIS TIME. DENIES ANY PAIN OR ANY DISCOMFORT. SKIN WARM AND DRY TO TOUCH NOTED REDNESS ON HER BUTTOCKS AREA. PICTURE TAKEN . NO SIGNS OF ANY DISTRESS NOTED WELL. ENCOURAGE PT HOW TO USED THE CALL LIGHT IF SHE NEEDS SOME HELPED OR NEEDS ASSISTANCE. KEPT HER WARM AND COMFORTABLE AT ALL TIMES. CLEANED PT WITH THE HELPED OF RL , APPLIED Z-GUARD TO BUTTOCKS AREA FOR PT COMFORT. WILL CONTINUE MONITORING. CALL LIGHT AT REACH.
--- NOTE | 2020-08-31 00:05 | NUR ---
PT TRANSFERRED TO 3W ROOM 314-1. IN STABLE CONDITION. ALL DUE MEDS GIVEN, ALL PT BELONGINGS NOW AT BEDSIDE AND ACCOUNTED FOR. REPORT GIVEN TO YANNA FOR CONTINUATION OF CARE.
[2020-08-31] MEDS: VANCOMYCIN HCL 125 MG/2.5 ML ORAL.SUSP PO SCH ×4 (00:34→18:07)
--- NOTE | 2020-08-31 01:12 | NUR ---
RN NOTES PATIENT IS REQUESTING TO HAVE A HOU CATHETER, GOT AN ORDER FROM DR. MCNEILL TO INSERT HOU, ORDER NOTED AND CARRIED OUT
[2020-08-31] MEDS: VANCOMYCIN FOR RECTAL ENEMA 500 MG RC SCH ×3 (05:16→21:06)
[2020-08-31] MEDS: METRONIDAZOLE 500MG/ NS 100ML 500 MG in PREMIX 1 EA IV SCH ×3 (05:52→21:06)
--- NOTE | 2020-08-31 06:57 | NUR ---
ms rody closing notes Patient awake and alert watching TV at this time. morning care done as well as skin care treatment, all due meds given , no signs of any distress noted. denies any pain or any discomfort. chew inserted earlier as ordered. kept her warm and comfortable at all times. place call light at reach. will endorse to am nurse for continuity of care.
--- NOTE | 2020-08-31 07:30 | NUR ---
RN MS NOTES PT IN BED, AWAKE, ALERT AND ORIENTED, NO COMPLAINT OF PAIN OR ANY DISCOMFORT, RESPIRATIONS NORMAL, IV FLUIDS INFUSING WELL, CALL LIGHT WITHIN REACH, KEPT WARM AND COMFORTABLE IN BED.
[2020-08-31 08:16] VITALS: BP 103/75
[2020-08-31 08:58] LABS: BASOPHILS % (AUTO) 0.5 % (0.0-2.0); EOSINOPHILS % (AUTO) 0.5 % (0.0-6.0); HEMATOCRIT 38 % (33-45); HEMOGLOBIN 12.6 g/dL (11.5-14.8); LYMPHOCYTES # (AUTO) 0.8 /CMM (0.8-4.8); LYMPHOCYTES % (AUTO) 8.2 % (20.0-44.0); MEAN CORPUSCULAR HGB CONC 33 g/dl (31.0-36.0); MEAN CORPUSCULAR VOLUME 108 fL (82-100); MONOCYTES # (AUTO) 0.6 /CMM (0.1-1.30); MONOCYTES % (AUTO) 6.6 % (2.0-12.0); NEUTROPHILS # (AUTO) 8.1 /CMM (1.8-8.9); NEUTROPHILS % (AUTO) 84.2 % (43.0-81.0); PLATELET COUNT (AUTO) 291 /CMM (150-450); RED BLOOD CELL COUNT(AUTO) 3.51 MIL/uL (4.0-5.2); WHITE BLOOD COUNT (AUTO) 9.7 K/uL (4.3-11.0)
[2020-08-31] MEDS: ENSURE CLEAR 237 ML LIQUID (MIX BERRY) PO SCH ×3 (09:07→17:02)
[2020-08-31 09:09] LABS: BILIRUBIN,TOTAL 0.3 mg/dL (0.2-1.0); CALCIUM, SERUM 6.8 mg/dL (8.5-10.1); CREATININE 0.6 mg/dL (0.6-1.3); POTASSIUM 3.5 mmol/L (3.5-5.1); TOTAL PROTEIN, SERUM 5.2 g/dL (6.4-8.2)
[2020-08-31 09:13] LABS: ALBUMIN 1.2 g/dL (3.4-5.0)
[2020-08-31] MEDS: CHOLESTYRAMINE/ASPARTAME 4 G/PKT PACKET PO SCH ×2 (09:56→21:06)
[2020-08-31] MEDS: FIDAXOMICIN 200 MG TABLET PO SCH ×2 (10:30→18:07)
--- NOTE | 2020-08-31 13:00 | NUR ---
RN MS NOTES PT IN BED, AWAKE, ALERT AND ORIENTED, NO COMPLAINT AT THIS TIME, F/C IN PLACE, DRAINING WELL, DUE MEDS GIVEN ORDERED, SEEN BY DR. PACK, PLAN OF CARE DISCUSSED WITH PT, VERBALIZED UNDERSTANDING, ENCOURAGED INCREASED PO INTAKE.
[2020-08-31 16:26] VITALS: BP 93/64
--- NOTE | 2020-08-31 18:34 | NUR ---
RN MS NOTES PT IN BED, AWAKE, ALERT AND ORIENTED, NO COMPLAINT OF PAIN OR ANY DISCOMFORT, BREATHING PATTERN NORMAL, IV FLUIDS INFUSING WELL, CALL LIGHT WITHIN REACH, DUE MEDS GIVEN ORDERED, BM NOTED TO BE SOFT WITH NO FOUL ODOR, PM CARE PROVIDED, ENCOURAGED INCREASED PO INTAKE, ALL NEEDS ATTENDED.
[2020-08-31 20:00] VITALS: BP 103/58
[2020-08-31] MEDS: IV NS 0.9% 1,000 ML IV PRN (22:01)
[2020-09-01] MEDS: VANCOMYCIN HCL 125 MG/2.5 ML ORAL.SUSP PO SCH ×4 (00:27→17:07)
[2020-09-01] MEDS: METRONIDAZOLE 500MG/ NS 100ML 500 MG in PREMIX 1 EA IV SCH ×3 (05:46→21:48)
[2020-09-01] MEDS: VANCOMYCIN FOR RECTAL ENEMA 500 MG RC SCH ×3 (06:20→21:48)
--- NOTE | 2020-09-01 07:00 | NUR ---
MS RN NOTE PATIENT WAS LAST SEEN AWAKE IN THE BED. PATIENT IS A/O X3. PT IS ON ROOM AIR, BREATHING IS EVEN AND UNLABORED. IV ACCESS ON LEFT UPPER ARM IS INTACT AND PATENT #20 G. BED IS IN ITS LOWEST LOCKED POSITION. SIDE RAILS UP X2. CALL LIGHT IS WITHIN REACH OF THE PT. WILL ENDORSE CONTINUITY OF CARE TO ONCOMING SHIFT.
--- NOTE | 2020-09-01 07:45 | NUR ---
MS/RN NOTE RECEIVED REPORT FROM ACOUSTICAL LOGGING ENGINEER NURSE. PATIENT SEEN LAYING IN HOSPITAL BED. A/O X3, NO ACUTE DISTRESS NOTED. PATIENT ON ROOM AIR, TOLERATING WELL, NO SOB NOTED, BREATHING EVEN NON LABORED. ALL SAFETY MEASURES IN PLACE, BED LOCKED AND IN LOWEST POSITION, CALL LIGHT WITHIN REACH. WILL CONTINUE TO MONITOR AND ENSURE SAFETY.
[2020-09-01 08:00] VITALS: BP 92/66
[2020-09-01] MEDS: ENSURE CLEAR 237 ML LIQUID (MIX BERRY) PO SCH ×3 (08:00→17:06)
[2020-09-01] MEDS: CHOLESTYRAMINE/ASPARTAME 4 G/PKT PACKET PO SCH ×2 (09:17→21:48)
[2020-09-01] MEDS: FIDAXOMICIN 200 MG TABLET PO SCH ×2 (09:18→17:06)
[2020-09-01] MEDS: IV NS 0.9% 1,000 ML IV PRN (13:15)
[2020-09-01] MEDS: ACETAMINOPHEN 325 MG TABLET PO PRN (15:32)
--- NOTE | 2020-09-01 15:50 | NUR ---
MS/RN NOTE PATIENT PRESENTED WITH TEMP OF 100.1 WAS GIVEN TYLENOL AND COOLING MEASURES IN PLACE. WILL MONITOR AND REASSESS.
[2020-09-01 16:00] VITALS: BP 107/73
--- NOTE | 2020-09-01 16:59 | NUR ---
MS/RN NOTE PATIENT WAS REASSESSED AFTER TYLENOL WAS GIVEN AND COOLING MEASURE WERE PUT IN PLACE. PATIENT CURRENT TEMP READING AT 98.7
--- NOTE | 2020-09-01 18:22 | NUR ---
MS/RN CLOSING NOTE PATIENT SEEN LAYING IN HOSPITAL BED. A/O X3, NO ACUTE DISTRESS NOTED. PATIENT ON ROOM AIR, TOLERATING WELL, NO SOB NOTED, BREATHING EVEN NON LABORED. ALL SAFETY MEASURES IN PLACE, BED LOCKED AND IN LOWEST POSITION, CALL LIGHT WITHIN REACH. ALL NEEDS MET THROUGHOUT THE SHIFT. WILL ENDORSE TO PREFORM PLATE MAKER NURSE.
--- NOTE | 2020-09-01 19:15 | NUR ---
MS RN OPENING NOTES: RECEIVED PATIENT IN BED, AWAKE, A/O X4. NO S/S OF DISTRESS NOTED. CALL LIGHT WITHIN REACH. BED IN LOWEST AND LOCKED POSITION. WITH HOU CATHETER INTACT.
[2020-09-01 20:18] VITALS: BP 114/45
[2020-09-02] MEDS: VANCOMYCIN HCL 125 MG/2.5 ML ORAL.SUSP PO SCH ×4 (00:11→17:46)
[2020-09-02] MEDS: ONDANSETRON HCL/PF 4 MG/2 ML VIAL IVP PRN (02:14)
[2020-09-02] MEDS: METRONIDAZOLE 500MG/ NS 100ML 500 MG in PREMIX 1 EA IV SCH ×3 (04:55→20:34)
[2020-09-02] MEDS: IV NS 0.9% 1,000 ML IV PRN ×2 (04:55→20:34)
[2020-09-02] MEDS: VANCOMYCIN FOR RECTAL ENEMA 500 MG RC SCH ×3 (04:56→21:19)
--- NOTE | 2020-09-02 06:43 | NUR ---
MS RN CLOSING NOTES: PATIENT IN BED, ASLEEP, NO S/S OF DISTRESS NOTED. CALL LIGHT WITHIN REACH. BED IN LOWEST AND LOCKED POSITION. VANCOCIN RECTAL ENEMA DONE ORDERED, PATIENT TOLERATED. STILL WITH DIARRHEA, WITH SOME LIGHT PINK MUCOUS LIKE PARTICLES. NO SKIN BREAKDOWN ON THE PERINEAL AREA NOTED.
--- NOTE | 2020-09-02 07:25 | NUR ---
MS RN OPENING NOTES PATIENT IN BED, ALERT AND ORIENTED X 4. NO SIGNS OF DISTRESS OR SHORTNESS OF BREATH NOTED. NO PAIN REPORTED AT THIS TIME. SAFETY MEASURES IN PLACE, CALL LIGHT WITHIN REACH, BED ALARM ON, BED IN LOWEST POSITION. WILL CONTINUE TO MONITOR
[2020-09-02 07:52] VITALS: BP 108/69
[2020-09-02] MEDS: ENSURE CLEAR 237 ML LIQUID (MIX BERRY) PO SCH ×3 (09:00→17:48)
[2020-09-02] MEDS: FIDAXOMICIN 200 MG TABLET PO SCH ×2 (09:03→17:45)
[2020-09-02] MEDS: CHOLESTYRAMINE/ASPARTAME 4 G/PKT PACKET PO SCH ×2 (10:09→21:18)
[2020-09-02] MEDS: BETHANECHOL CHLORIDE (10 MG) 10 MG TABLET PO SCH ×2 (13:49→17:46)
[2020-09-02 16:24] VITALS: BP 93/61
--- NOTE | 2020-09-02 19:00 | NUR ---
MS RN CLOSING NOTES PATIENT RESTING IN BED, ALERT AND ORIENTED X 4. NO SIGNS OF DISTRESS OR SHORTNESS OF BREATH NOTED. NO PAIN REPORTED AT THIS TIME. SAFETY MEASURES IN PLACE, CALL LIGHT WITHIN REACH, BED ALARM ON, BED IN LOWEST POSITION. WILL ENDORSE TO MACHINE STAKER NURSE FOR CONTINUITY OF CARE
--- NOTE | 2020-09-02 19:35 | NUR ---
MS/RN OPENING NOTE RECEIVED PATIENT RESTING IN BED. AWAKE, ALERT AND ORIENTED X 4. ABLE TO MAKE NEEDS KNOWN. NO COMPLAINTS OF PAIN AT THIS TIME. RESPIRATIONS EVEN AND UNLABORED. IV ACCESS TO LEFT UPPER ARM #20G INTACT AND PATENT. CONTINUES ON IVF NS @ 75ML/HR. CONTINUES ON IV ABX. HOU CATHETER INTACT AND PATENT. CALL LIGHT WITHIN REACH. ASPIRATION, FALL AND SAFETY PRECAUTIONS MAINTAINED. WILL CONTINUE TO MONITOR.
[2020-09-02 20:00] VITALS: BP 98/64
[2020-09-03] MEDS: VANCOMYCIN HCL 125 MG/2.5 ML ORAL.SUSP PO SCH ×5 (00:21→23:19)
[2020-09-03] MEDS: VANCOMYCIN FOR RECTAL ENEMA 500 MG RC SCH ×3 (05:00→21:00)
[2020-09-03] MEDS: METRONIDAZOLE 500MG/ NS 100ML 500 MG in PREMIX 1 EA IV SCH ×3 (05:05→21:07)
--- NOTE | 2020-09-03 06:40 | NUR ---
MS/RN CLOSING NOTE PATIENT CURRENTLY RESTING IN BED. AWAKE, ALERT AND ORIENTED X 4. ABLE TO MAKE NEEDS KNOWN. NO COMPLAINTS OF PAIN AT THIS TIME. RESPIRATIONS EVEN AND UNLABORED. IV ACCESS TO LEFT UPPER ARM #20G INTACT AND PATENT. CONTINUES ON IVF NS @ 75ML/HR. CONTINUES ON IV ABX. HOU CATHETER INTACT AND PATENT. CALL LIGHT WITHIN REACH. ASPIRATION, FALL AND SAFETY PRECAUTIONS MAINTAINED. WILL ENDORSE PLAN OF CARE TO ONCOMING SHIFT.
[2020-09-03 07:05] LABS: BASOPHILS % (AUTO) 0.4 % (0.0-2.0); EOSINOPHILS % (AUTO) 0.4 % (0.0-6.0); HEMATOCRIT 35 % (33-45); HEMOGLOBIN 11.3 g/dL (11.5-14.8); LYMPHOCYTES # (AUTO) 1.1 /CMM (0.8-4.8); LYMPHOCYTES % (AUTO) 10.7 % (20.0-44.0); MEAN CORPUSCULAR HGB CONC 33 g/dl (31.0-36.0); MEAN CORPUSCULAR VOLUME 107 fL (82-100); MONOCYTES # (AUTO) 0.8 /CMM (0.1-1.30); MONOCYTES % (AUTO) 7.7 % (2.0-12.0); NEUTROPHILS # (AUTO) 8.1 /CMM (1.8-8.9); NEUTROPHILS % (AUTO) 80.8 % (43.0-81.0); PLATELET COUNT (AUTO) 273 /CMM (150-450); RED BLOOD CELL COUNT(AUTO) 3.23 MIL/uL (4.0-5.2)
--- NOTE | 2020-09-03 07:20 | NUR ---
MS RN OPENING NOTE RECEIVED PATIENT IN BED. A/O X4. ON ROOM AIR, NO SOB NOTED. IN NO APPARENT DISTRESS. DENIES ANY PAIN OR DISCOMFORT AT THIS TIME. IV ACCESS ON ANAHI #20 G, INTACT AND PATENT, NS RUNNING @ 75 ML/HR. HOU CATHETER IN PLACE, DRAINING YELLOW URINE. SAFETY MEASURES MAINTAINED. BED IN LOWEST POSITION, BRAKES LOCKED. SIDE RAILS UP X 2. CALL LIGHT WITHIN REACH. WILL CONTINUE PLAN OF CARE.
--- NOTE | 2020-09-03 07:30 | NUR ---
MS RON NOTE SOC FROM LAB CALLED FOR A CRITICAL LAB VALUE K+ 2.5 AND ALBUMIN 1.0 Addendum: 09/03/20 at 0856 by SHAWNA CAGLE RN TIME REPORTED FROM THE LAB [id number]*
[2020-09-03 08:00] VITALS: BP 102/72
[2020-09-03 08:05] LABS: BILIRUBIN,TOTAL 0.2 mg/dL (0.2-1.0); CREATININE 0.6 mg/dL (0.6-1.3); TOTAL PROTEIN, SERUM 4.5 g/dL (6.4-8.2)
[2020-09-03] MEDS: CHOLESTYRAMINE/ASPARTAME 4 G/PKT PACKET PO SCH ×2 (08:06→21:07)
[2020-09-03] MEDS: ENSURE CLEAR 237 ML LIQUID (MIX BERRY) PO SCH ×3 (08:06→16:27)
[2020-09-03] MEDS: BETHANECHOL CHLORIDE (10 MG) 10 MG TABLET PO SCH ×3 (08:06→16:27)
[2020-09-03] MEDS: FIDAXOMICIN 200 MG TABLET PO SCH ×2 (08:06→16:27)
[2020-09-03 08:30] LABS: POTASSIUM 2.5 mmol/L (3.5-5.1)
--- NOTE | 2020-09-03 08:40 | NUR ---
MS RN NOTE CALLED [facility] DR. PACK AND HE ORDERED K+ 80 mEq PO IN DIVIDED DOSES. ORDER READ BACK AND CARRIED OUT.
[2020-09-03] MEDS: POTASSIUM CHLORIDE 20 MEQ TAB.PRT.SR PO SCH ×2 (09:01→11:28)
[2020-09-03] MEDS: IV NS 0.9% 1,000 ML IV PRN (12:06)
[2020-09-03 15:53] VITALS: BP 104/73
--- NOTE | 2020-09-03 18:13 | NUR ---
MS RN CLOSING NOTE PATIENT RESTING IN BED. A/O X4. ON ROOM AIR, NO SOB NOTED. SHOWS NO SIGNS OF RESPIRATORY DISTRESS. STILL DENIES ANY PAIN OR DISCOMFORT AT THIS TIME. IV ACCESS ON ANAHI #20 G, INTACT AND PATENT, NS CURRENTLY RUNNING @ 75 ML/HR. HOU CATHETER IN PLACE, DRAINING YELLOW URINE, 500 CC OUTPUT. BM X1, FORMED YELLOW STOOL. ROUTINE MEDS GIVEN ORDERED. ALL NEED HAVE BEEN MET AND ATTENDED. SAFETY MEASURES MAINTAINED. BED IN LOWEST POSITION, BRAKES LOCKED. SIDE RAILS UP X 2. CALL LIGHT WITHIN REACH. WILL ENDORSE CONTINUITY OF CARE TO ONCOMING SHIFT.
--- NOTE | 2020-09-03 19:14 | NUR ---
MS RN OPENING NOTES PATIENT A/OX4; ABLE TO MAKE NEEDS KNOWN. ON ROOM AIR TOLERATING WELL WITH NO SOB. PATIENT DENIES PAIN OR DISCOMFORT AT THIS TIME. ANAIH #20G NS @ 75ML/HR; PATENT AND INTACT. VISITOR AT BEDSIDE. SAFETY MEASURES IN PLACE: BED IN LOWEST LOCKED POSITION, SIDE RAILS UPX2, BED ALARMS ON, CALL LIGHT WITHIN EASY REACH. PATIENT IN STABLE CONDITION, WILL CONTINUE PLAN OF CARE.
[2020-09-03 20:00] VITALS: BP 107/75
[2020-09-04] MEDS: METRONIDAZOLE 500MG/ NS 100ML 500 MG in PREMIX 1 EA IV SCH ×3 (04:42→20:58)
[2020-09-04] MEDS: VANCOMYCIN FOR RECTAL ENEMA 500 MG RC SCH ×3 (05:00→21:00)
[2020-09-04] MEDS: VANCOMYCIN HCL 125 MG/2.5 ML ORAL.SUSP PO SCH ×4 (05:03→23:00)
--- NOTE | 2020-09-04 06:37 | NUR ---
MS RN CLOSING NOTES PATIENT A/OX4; ABLE TO MAKE NEEDS KNOWN. ON ROOM AIR TOLERATING WELL WITH NO SOB. PATIENT DENIES PAIN OR DISCOMFORT AT THIS TIME. ANAHI #20G NS @ 75ML/HR; PATENT AND INTACT. F/C DRAINING CLEAR YELLOW URINE; BED IN LOWEST LOCKED POSITION. SAFETY MEASURES IN PLACE: BED IN LOWEST LOCKED POSITION, SIDE RAILS UPX2, BED ALARMS ON, CALL LIGHT WITHIN EASY REACH. PATIENT IN STABLE CONDITION, WILL ENDORSE PLAN OF CARE TO ONCOMING MORNING RN.
[2020-09-04 08:00] VITALS: BP 117/73
[2020-09-04] MEDS: ENSURE CLEAR 237 ML LIQUID (MIX BERRY) PO SCH ×3 (08:14→17:12)
--- NOTE | 2020-09-04 08:19 | NUR ---
MS/RN OPENING NOTE RECEIVED PATIENT FROM MASONRY TEACHER NURSE. PATIENT IS SEEN LAYING IN BED. A/O X4, NO ACUTE DISTRESS NOTED AT THIS TIME. PATIENT ON ROOM AIR, TOLERATING WELL, NO SOB NOTED, BREATHING EVEN NON LABORED. SAFETY MEASURES IN PLACE, BED LOCKED AND IN LOWEST POSITION, CALL LIGHT WITHIN REACH. WILL CONTINUE TO MONITOR AND ENSURE SAFETY.
[2020-09-04] MEDS: CHOLESTYRAMINE/ASPARTAME 4 G/PKT PACKET PO SCH ×2 (08:31→21:04)
[2020-09-04] MEDS: FIDAXOMICIN 200 MG TABLET PO SCH ×2 (08:31→17:11)
[2020-09-04] MEDS: BETHANECHOL CHLORIDE (10 MG) 10 MG TABLET PO SCH ×3 (08:33→17:12)
[2020-09-04 09:11] LABS: BASOPHILS % (AUTO) 0.5 % (0.0-2.0); EOSINOPHILS % (AUTO) 0.8 % (0.0-6.0); HEMATOCRIT 37 % (33-45); HEMOGLOBIN 11.9 g/dL (11.5-14.8); LYMPHOCYTES # (AUTO) 0.9 /CMM (0.8-4.8); MEAN CORPUSCULAR HGB CONC 33 g/dl (31.0-36.0); MEAN CORPUSCULAR VOLUME 107 fL (82-100); MONOCYTES # (AUTO) 0.5 /CMM (0.1-1.30); MONOCYTES % (AUTO) 6.5 % (2.0-12.0); NEUTROPHILS # (AUTO) 6.5 /CMM (1.8-8.9); NEUTROPHILS % (AUTO) 81.2 % (43.0-81.0); PLATELET COUNT (AUTO) 331 /CMM (150-450); RED BLOOD CELL COUNT(AUTO) 3.41 MIL/uL (4.0-5.2); WHITE BLOOD COUNT (AUTO) 8.1 K/uL (4.3-11.0)
[2020-09-04 09:22] LABS: CALCIUM, SERUM 7.2 mg/dL (8.5-10.1); CREATININE 0.5 mg/dL (0.6-1.3); POTASSIUM 3.4 mmol/L (3.5-5.1)
[2020-09-04] MEDS: IV NS 0.9% 1,000 ML IV PRN (13:48)
[2020-09-04 16:00] VITALS: BP 103/70
--- NOTE | 2020-09-04 18:28 | NUR ---
RN MS NOTES PT IN BED, AWAKE, ALERT AND ORIENTED, WATCHING TV, NO COMPLAINT AT THIS TIME, BREATHING PATTERN NORMAL, OLD IV SITE AT LEFT UPPER ARM INFILTRATED, STARTED NEW IV AT RIGHT UPPER ARM, TOLERATED PROCEDURE WELL, PM MEDS GIVEN, ENCOURAGED INCREASED PO INTAKE, VERBALIZED UNDERSTANDING, ALL NEEDS ATTENDED.
--- NOTE | 2020-09-04 19:30 | NUR ---
MS/RN OPENING NOTES RECEIVED PATIENT IN BED RESTING. PATIENT IS ALERT AND ORIENTED X 4. PATIENT BREATHING IS EVEN AND UNLABORED. NO SIGNS OF SOB OR RESPIRATORY DISTRESS NOTED. PATIENT STATES NO PAIN AT THIS TIME. IV ACCESS IN PLACE FLUSHING WELL. SAFETY MEASURES ARE IN PLACE, BED IS LOCKED AND PLACED IN THE LOW POSITION, SIDE RAILS UP X 3, CALL LIGHT IS WITHIN REACH. WILL CONTINUE WITH PATIENT PLAN OF CARE.
[2020-09-04 20:30] VITALS: BP 117/78
[2020-09-05] MEDS: VANCOMYCIN FOR RECTAL ENEMA 500 MG RC SCH ×2 (04:40→13:00)
[2020-09-05] MEDS: METRONIDAZOLE 500MG/ NS 100ML 500 MG in PREMIX 1 EA IV SCH ×2 (04:40→12:42)
[2020-09-05] MEDS: VANCOMYCIN HCL 125 MG/2.5 ML ORAL.SUSP PO SCH ×3 (05:29→17:42)
[2020-09-05 06:25] LABS: BASOPHILS % (AUTO) 0.5 % (0.0-2.0); EOSINOPHILS % (AUTO) 0.9 % (0.0-6.0); HEMATOCRIT 33 % (33-45); HEMOGLOBIN 11.2 g/dL (11.5-14.8); LYMPHOCYTES # (AUTO) 1.2 /CMM (0.8-4.8); LYMPHOCYTES % (AUTO) 14.2 % (20.0-44.0); MEAN CORPUSCULAR HGB CONC 34 g/dl (31.0-36.0); MEAN CORPUSCULAR VOLUME 106 fL (82-100); MONOCYTES # (AUTO) 0.7 /CMM (0.1-1.30); MONOCYTES % (AUTO) 7.8 % (2.0-12.0); NEUTROPHILS # (AUTO) 6.6 /CMM (1.8-8.9); NEUTROPHILS % (AUTO) 76.6 % (43.0-81.0); PLATELET COUNT (AUTO) 335 /CMM (150-450); RED BLOOD CELL COUNT(AUTO) 3.14 MIL/uL (4.0-5.2); WHITE BLOOD COUNT (AUTO) 8.6 K/uL (4.3-11.0)
[2020-09-05 06:42] LABS: CALCIUM, SERUM 6.9 mg/dL (8.5-10.1)
--- NOTE | 2020-09-05 06:45 | NUR ---
MS/RN CLOSING NOTES PATIENT IN BED RESTING. PATIENT IS ALERT AND ORIENTED X 4. PATIENT BREATHING IS EVEN AND UNLABORED. NO SIGNS OF SOB OR RESPIRATORY DISTRESS NOTED. HOU CATH IN PLACE DRAINING WELL. IV ACCESS IN PLACE FLUSHING WELL. ALL NEEDS HAVE BEEN MET. SAFETY MEASURES ARE IN PLACE, BED IS LOCKED AND PLACED IN THE LOW POSITION, SIDE RAILS UP X 3, CALL LIGHT IS WITHIN REACH. WILL ENDORSE CARE TO DAY SHIFT NURSE.
[2020-09-05 07:03] LABS: CREATININE 0.4 mg/dL (0.6-1.3)
--- NOTE | 2020-09-05 07:30 | NUR ---
MS RN OPENING NOTES RECEIVED PATIENT AWAKE IN BED, BED IN LOW POSITION, CALL LIGHTS WITHIN REACH. A/0 X4, VERBALLY RESPONSIVE AND ABLE TO EXPRESS NEEDS. NO COMPLAIN OF PAIN AND DISCOMFORT VOICED AT THIS TIME. ZHANG PERIPHERAL LINE, PATENT G#22, ON IV NS @75ML/HR, ON HOU CATHETER, WITH INITIAL 100CC OUTPUT, CLEAR COLORED, NO SIGN OF INFECTION,. WILL CONTINUE TO MONITOR.
[2020-09-05] MEDS ORDERED: FIDA200T PO (07:37)
[2020-09-05] MEDS ORDERED: BETH10TA4 PO (07:37)
[2020-09-05 08:00] VITALS: BP 112/74
[2020-09-05] MEDS ORDERED: POTASSIUM CHLORIDE 20 MEQ TAB.PRT.SR PO ONE ×2 (08:00→10:00)
[2020-09-05] MEDS: ENSURE CLEAR 237 ML LIQUID (MIX BERRY) PO SCH ×3 (08:33→17:42)
[2020-09-05] MEDS: CHOLESTYRAMINE/ASPARTAME 4 G/PKT PACKET PO SCH (08:52)
[2020-09-05] MEDS: BETHANECHOL CHLORIDE (10 MG) 10 MG TABLET PO SCH ×3 (08:52→16:28)
[2020-09-05] MEDS: FIDAXOMICIN 200 MG TABLET PO SCH ×2 (09:00→16:28)
[2020-09-05 16:00] VITALS: BP 108/72
--- NOTE | 2020-09-05 18:47 | NUR ---
MS RN CLOSING NOTE PATIENT RESTING AND AWAKE IN BED. A/O X4. ON ROOM AIR, TOLERATING WELL WITH NO SOB OR RESPIRATORY DISTRESS WAS OBSERVED, NO COMPLAIN OF PAIN OR DISCOMFORT AT THIS TIME. IV ACCESS ON ZHANG INTACT AND PATENT. HOU CATHETER DC'D WITH 600C URINE OUTPUT. ROUTINE MEDS GIVEN ORDERED AND TOLERATED. PATIENT WAS GROOM AND PREPARE FOR DISCHARGE AWAITING FOR FAMILY YARD SWITCH OPERATOR, DISCHARGE INSTRUCTIONS, DOCTORS FOLLOW UPS AND HOME MEDICATION WERE DISCUSSED AND SIGNED, INVENTORY OF PERSONAL BELONGINGS ACCOUNTED FOR AND SIGNED FORM. WILL ENDORSE TO INCOMING SHIFT.
--- NOTE | 2020-09-05 20:04 | NUR ---
MS BAIL BOND AGENT NOTES PATIENT IN BED, DRESSED. A/OX4. HOU REMOVED. IV LINE REMOVED. ID BAND REMOVED. PAPER WORKS GIVEN. BELONGINGS GIVEN AND ACCOUNTED FOR. PATIENT DISCHARGED IN MEDICALLY STABLE CONDITION. ESCORTED BY RL TO THE LOBBY. PATIENT PICKED UP BY HER SISTER LAXMI.
== END 2020-09-05 19:55 | disposition home health service (06) | DRG 371 ==
LOC: EDUNIT# 15:45 → ER 15:49 → MEDSG1 21:07 → MED 08-30 23:23
PROVIDERS: ADMIT Nurse Practitioner Acute Care; ATTEND Family Medicine
DX: A04.72 Enterocolitis due to Clostridium difficile, not specified as recurrent (principal); E43 Unspecified severe protein-calorie malnutrition; D68.59 Other primary thrombophilia; E87.1 Hypo-osmolality and hyponatremia; Z68.1 Body mass index [BMI] 19.9 or less, adult; Z87.442 Personal history of urinary calculi; E86.0 Dehydration; E86.1 Hypovolemia; Z20.822 Contact with and (suspected) exposure to COVID-19; Z88.1 Allergy status to other antibiotic agents; Z79.899 Other long term (current) drug therapy
CPT/HCPCS: 36415; 80048-TC; 80053-TC; 80076-TC; 82378; 83690-TC; 83735-TC; 84100-TC; 85025-TC; 87081-TC; 97116-TC; 97530-TC; A4216; C9803; G0378; J2405; J3370; J7030; J7040

== ENCOUNTER 2020-09-12 13:31 | Outpatient (CLI) | payer BC ==
[~2020-09-12 13:31] MED LIST changes: +BETH10TA4 PO; -CAPE500T15 PO; +FIDA200T PO; +POTA20TA10 PO
[2020-09-12 14:56] LABS: BASOPHILS % (AUTO) 0.2 % (0.0-2.0); EOSINOPHILS % (AUTO) 0.2 % (0.0-6.0); HEMATOCRIT 39 % (33-45); HEMOGLOBIN 12.6 g/dL (11.5-14.8); LYMPHOCYTES # (AUTO) 0.7 /CMM (0.8-4.8); LYMPHOCYTES % (AUTO) 6.5 % (20.0-44.0); MEAN CORPUSCULAR HGB CONC 33 g/dl (31.0-36.0); MEAN CORPUSCULAR VOLUME 104 fL (82-100); MONOCYTES # (AUTO) 0.8 /CMM (0.1-1.30); MONOCYTES % (AUTO) 6.8 % (2.0-12.0); NEUTROPHILS # (AUTO) 9.7 /CMM (1.8-8.9); NEUTROPHILS % (AUTO) 86.3 % (43.0-81.0); PLATELET COUNT (AUTO) 472 /CMM (150-450); RED BLOOD CELL COUNT(AUTO) 3.71 MIL/uL (4.0-5.2); WHITE BLOOD COUNT (AUTO) 11.2 K/uL (4.3-11.0)
[2020-09-12 15:09] LABS: BILIRUBIN,TOTAL 0.2 mg/dL (0.2-1.0); CALCIUM, SERUM 7.2 mg/dL (8.5-10.1); CREATININE 0.5 mg/dL (0.6-1.3); POTASSIUM 3.6 mmol/L (3.5-5.1); TOTAL PROTEIN, SERUM 5.8 g/dL (6.4-8.2)
[2020-09-12 15:19] LABS: ALBUMIN 1.4 g/dL (3.4-5.0)
== END 2020-09-12 23:59 | disposition home or self-care (01) ==
LOC: CARD 13:31
PROVIDERS: ATTEND Family Medicine
DX: C20 Malignant neoplasm of rectum (principal); D64.9 Anemia, unspecified; R59.1 Generalized enlarged lymph nodes; M79.89 Other specified soft tissue disorders
CPT/HCPCS: 36415; 80053-TC; 82378; 85025-TC; 93970-TC

== ENCOUNTER 2020-09-23 18:20 | Inpatient (IN) | payer BC ==
[~2020-09-23] VITALS: Ht 154.9 cm; Wt 44.5 kg
[2020-09-23 11:30] VITALS: BP 105/66
[2020-09-23] MEDS ORDERED: IV NS 0.9% 1,000 ML BAG IV ONE ×2 (19:00→21:00)
--- NOTE | 2020-09-23 19:05 | NUR ---
Patient came in to the er c/o "weakness and diarrhea" Hx stage 3 rectal ca. On room air, breathing evenly and unlabored. Connected to the monitor and pulse ox. kept comfortable, will continue to monitor accordingly.
--- NOTE | 2020-09-23 19:09 | NUR ---
IV access started
[2020-09-23] MEDS ORDERED: LACT1CAP71 PO (19:10)
[2020-09-23 19:32] LABS: BASOPHILS # (AUTO) 0.1 /CMM (0.0-0.2); BASOPHILS % (AUTO) 0.3 % (0.0-2.0); EOSINOPHILS % (AUTO) 0.1 % (0.0-6.0); HEMATOCRIT 36 % (33-45); HEMOGLOBIN 11.9 g/dL (11.5-14.8); LYMPHOCYTES # (AUTO) 0.6 /CMM (0.8-4.8); LYMPHOCYTES % (AUTO) 3.5 % (20.0-44.0); MEAN CORPUSCULAR HGB CONC 33 g/dl (31.0-36.0); MEAN CORPUSCULAR VOLUME 100 fL (82-100); MONOCYTES # (AUTO) 0.9 /CMM (0.1-1.30); MONOCYTES % (AUTO) 5.6 % (2.0-12.0); NEUTROPHILS # (AUTO) 15.2 /CMM (1.8-8.9); NEUTROPHILS % (AUTO) 90.5 % (43.0-81.0); PLATELET COUNT (AUTO) 570 /CMM (150-450); RED BLOOD CELL COUNT(AUTO) 3.61 MIL/uL (4.0-5.2); WHITE BLOOD COUNT (AUTO) 16.8 K/uL (4.3-11.0)
--- NOTE | 2020-09-23 19:54 | NUR ---
pt was taken for ct
[2020-09-23 20:04] LABS: BILIRUBIN,DIRECT 0.1 mg/dL (0.0-0.2); BILIRUBIN,TOTAL 0.4 mg/dL (0.2-1.0); CALCIUM, SERUM 7.8 mg/dL (8.5-10.1); CREATININE 0.6 mg/dL (0.6-1.3); POTASSIUM 4.9 mmol/L (3.5-5.1); TOTAL PROTEIN, SERUM 5.9 g/dL (6.4-8.2)
--- NOTE | 2020-09-23 20:05 | NUR ---
back from ct
--- NOTE | 2020-09-23 20:08 | NUR ---
Send UA to lab
[2020-09-23 20:21] LABS: BILIRUBIN,URINE NEGATIVE (NEGATIVE); COLOR,URINE YELLOW (YELLOW); LEUKOCYTE ESTERASE ,URINE LARGE (NEGATIVE); NITRITE, URINE NEGATIVE (NEGATIVE); PH,URINE 6.5 (5.0-8.0); PROTEIN,URINE NEGATIVE (NEGATIVE); UGLUCOSE NEGATIVE (NEGATIVE); UROBILINOGEN,URINE 0.2 EU/dL (0.2)
[2020-09-23 20:27] LABS: ALBUMIN 1.3 g/dL (3.4-5.0)
[2020-09-23 20:33] LABS: BACTERIA,URINE 4+ /HPF (None Seen); SQUAMOUS EPITHELIAL CELL,UR 0-2 /HPF (None Seen); WBC,URINE 51-80 /HPF (0-3)
[2020-09-23] MEDS ORDERED: LEVOFLOXACIN 750 MG /D5W 150ML 150 ML IV ONE ×2 (21:00→21:23)
[2020-09-23] MEDS ORDERED: Z GUARD REMEDY 2 OZ OINT TP PRN (21:30)
[2020-09-23] MEDS ORDERED: MAG HYDROX/AL HYDROX/SIMETH 30 ML UDC PO PRN (21:30)
[2020-09-23] MEDS ORDERED: MAGNESIUM HYDROXIDE 30 ML UDC PO PRN (21:30)
--- NOTE | 2020-09-23 22:25 | NUR ---
CALL FROM LAB W/ COVID NEG RESULT
--- NOTE | 2020-09-23 22:37 | NUR ---
Called to give report and waiting for charge nurse to call back.
--- NOTE | 2020-09-23 23:00 | NUR ---
Gave report to ARIADNE Dahl for [facility]
[2020-09-23 23:30] VITALS: BP 105/63
--- NOTE | 2020-09-23 23:30 | NUR ---
MS RN ADMITTING NOTE RECEIVED REPORT FROM JEREMY AL RN. PATIENT A/OX4; ABLE TO MAKE NEEDS KNOWN. ON ROOM AIR TOLERATING WELL WITH NO SOB. DENIES PAIN OR DISCOMFORT AT THIS TIME. DENIES N/V. SKIN IS INTACT. LEFT HAND #22G NS @ 75ML/HR PATENT AND INTACT. ORIENTED PATIENT TO STAFF, ROOM, AND UNIT. ALL BELONGINGS ACCOUNTED FOR. SAFETY MEASURES IN PLACE: BED IN LOWEST LOCKED POSITION, SIDE RAILS UPX2, CALL LIGHT WITHIN EASY REACH, BED ALARMS ON. PATIENT IS STABLE AT THIS TIME. WILL CONTINUE PLAN OF CARE.
[2020-09-24] MEDS: ENOXAPARIN SODIUM 40 MG/0.4 ML DISP.SYRIN SQ SCH ×2 (00:06→21:28)
--- NOTE | 2020-09-24 00:15 | NUR ---
MS RN NOTE KARLOS GAMING RUBBER TILE FLOOR LAYER AT PATIENT'S BED SIDE.
--- NOTE | 2020-09-24 00:26 | NUR ---
MS RN NOTE INSERTED F/C 16 FR; DRAINING CLEAR YELLOW URINE.
[2020-09-24] MEDS ORDERED: VANCOMYCIN HCL 0.75 GM in IV D5W 250 ML IV ONE (02:30)
[2020-09-24] MEDS: ONDANSETRON HCL/PF 4 MG/2 ML VIAL IVP PRN ×2 (02:37→20:53)
--- NOTE | 2020-09-24 02:37 | NUR ---
MS RN NOTE PATIENT C/O NAUSEA. ADMINISTERED ZOFRAN ORDERED
[2020-09-24] MEDS: HYDROCODONE/APAP 5/325MG TABLET PO PRN ×2 (02:54→23:59)
--- NOTE | 2020-09-24 02:54 | NUR ---
MS RN NOTE - PAIN PATIENT C/O 11/24 ABDOMINAL PAIN. ADMINISTERED NORCO ORDERED. WILL REASSESS PAIN IN 1 HOUR.
[2020-09-24] MEDS: IV NS 0.9% 1,000 ML IV PRN ×2 (03:10→21:37)
[2020-09-24] MEDS ORDERED: VANCOMYCIN 1 GM VIAL ONE (03:20)
[2020-09-24] MEDS ORDERED: METRONIDAZOLE 500MG/ NS 100ML 100 ML IV ONE (03:21)
[2020-09-24] MEDS: METRONIDAZOLE 500MG/ NS 100ML 500 MG in PREMIX 1 EA IV SCH ×3 (03:26→17:00)
[2020-09-24] MEDS ORDERED: METRONIDAZOLE 500 MG TABLET PO SCH (05:00)
[2020-09-24] MEDS ORDERED: PIPERACILLIN /TAZOBACTAM 3.375 G in IV D5W 50 ML IV SCH (06:00)
[2020-09-24 06:08] LABS: BASOPHILS % (AUTO) 0.1 % (0.0-2.0); EOSINOPHILS % (AUTO) 0.1 % (0.0-6.0); HEMATOCRIT 30 % (33-45); HEMOGLOBIN 10.1 g/dL (11.5-14.8); LYMPHOCYTES # (AUTO) 0.5 /CMM (0.8-4.8); LYMPHOCYTES % (AUTO) 2.6 % (20.0-44.0); MEAN CORPUSCULAR HGB CONC 34 g/dl (31.0-36.0); MEAN CORPUSCULAR VOLUME 101 fL (82-100); MONOCYTES % (AUTO) 5.5 % (2.0-12.0); NEUTROPHILS % (AUTO) 91.7 % (43.0-81.0); PLATELET COUNT (AUTO) 501 /CMM (150-450); WHITE BLOOD COUNT (AUTO) 17.5 K/uL (4.3-11.0)
[2020-09-24 06:49] LABS: THYROID STIMULATING HORMONE 2.563 uIU/mL (0.358-3.74)
[2020-09-24 07:06] LABS: CALCIUM, SERUM 7.1 mg/dL (8.5-10.1); CREATININE 0.5 mg/dL (0.6-1.3); MAGNESIUM 1.7 mg/dL (1.8-2.4); PHOSPHORUS 4.3 mg/dL (2.5-4.9)
--- NOTE | 2020-09-24 07:56 | NUR ---
MS RN CLOSING NOTE PATIENT A/OX4; ABLE TO MAKE NEEDS KNOWN. ON ROOM AIR TOLERATING WELL WITH NO SOB. DENIES PAIN OR DISCOMFORT AT THIS TIME. DENIES N/V. SKIN IS INTACT. LEFT HAND #22G NS @ 75ML/HR PATENT AND INTACT. F/C DRAINING CLEAR YELLOW URINE; PATENT AND INTACT. COLLECTED STOOL SPECIMEN AND WILL DROP IT OFF TO LAB. SAFETY MEASURES IN PLACE: BED IN LOWEST LOCKED POSITION, SIDE RAILS UPX2, CALL LIGHT WITHIN EASY REACH. PATIENT IS STABLE AT THIS TIME. ENDORSED PLAN OF CARE TO ONCOMING MORNING RN
[2020-09-24] MEDS: LACTOBACILLUS RHAMNOSUS GG 1 EACH CAP.SPRINK PO SCH (08:34)
[2020-09-24] MEDS: POTASSIUM CHLORIDE 20 MEQ TAB.PRT.SR PO SCH (08:34)
[2020-09-24] MEDS: PANTOPRAZOLE 40 MG VIAL IV SCH (08:34)
[2020-09-24 08:41] VITALS: BP 94/56
[2020-09-24] MEDS ORDERED: MEGESTROL ACETATE 40 MG TABLET PO SCH (09:00)
[2020-09-24] MEDS: VANCOMYCIN HCL 125 MG/2.5 ML ORAL.SUSP PO SCH ×2 (09:31→21:17)
--- NOTE | 2020-09-24 09:56 | NUR ---
MsRN OPENING NOTE PATIENT A/OX4; ABLE TO MAKE NEEDS KNOWN. ON ROOM AIR TOLERATING WELL WITH NO SOB. DENIES PAIN OR DISCOMFORT AT THIS TIME. DENIES N/V. SKIN IS INTACT. LEFT HAND #22G NS @ 75ML/HR PATENT AND INTACT. F/C DRAINING CLEAR YELLOW URINE; PATENT AND INTACT. SAFETY MEASURES IN PLACE: BED IN LOWEST LOCKED POSITION, SIDE RAILS UPX2, CALL LIGHT WITHIN EASY REACH.
[2020-09-24] MEDS: Magnesium 1GM/D5W 100ML PREMIX 100 ML IV SCH ×2 (11:53→15:11)
[2020-09-24 16:05] VITALS: BP 112/68
[2020-09-24] MEDS: LEVOFLOXACIN 500 MG /D5W 100ML 500 MG in PREMIX 1 EA IV SCH ×2 (17:00→21:27)
[2020-09-24] MEDS: VANCOMYCIN 0.75 GM in IV D5W 250 ML IV SCH (17:05)
[2020-09-24] MEDS: ENSURE CLEAR 237 ML LIQUID (MIX BERRY) PO SCH (17:39)
[2020-09-24 20:00] VITALS: BP 100/67
--- NOTE | 2020-09-24 20:36 | NUR ---
MS/TELE/RN DURING INITIAL SHIFT ROUNDING, PATIENT WAS IN BED AWAKE, ALERT, ORIENTED, COMFORTABLE, NO C/O PAIN, NO DISTRESS NOTED, FALL PRECAUTIONS PER PROTOCOL, CALL LIGHT IN REACH, ENCOURAGED TO USE CALL LIGHT FOR ANY ASSISTANCE, WILL MONITOR.
[2020-09-24] MEDS ORDERED: LEVOFLOXACIN 500 MG /D5W 100ML 500 MG in PREMIX 1 EA IV SCH (22:00)
[2020-09-25] MEDS: METRONIDAZOLE 500MG/ NS 100ML 500 MG in PREMIX 1 EA IV SCH ×3 (02:23→17:17)
[2020-09-25] MEDS: VANCOMYCIN 0.75 GM in IV D5W 250 ML IV SCH (04:44)
--- NOTE | 2020-09-25 05:19 | NUR ---
MS/TELE/RN PER RONI, NURSING COLLAR TAILOR, VANCOCIN ENEMA IS NOT AVAILABLE IN THE NIGHT LOCKER. WILL ENDORSE IT TO THE NEXT RN.
--- NOTE | 2020-09-25 05:59 | NUR ---
MS/TELE/RN PATIENT IS AWAKE, COMFORTABLE, NO DISTRESS NOTED, NPO POST MIDNIGHT FOR THE CT CHEST/ABDOMEN TODAY,CALL LIGHT IN REACH, ALL NEEDS ATTENDED AT THIS TIME, WILL CONTINUE TO MONITOR.
[2020-09-25 06:15] LABS: BASOPHILS % (AUTO) 0.3 % (0.0-2.0); EOSINOPHILS % (AUTO) 0.2 % (0.0-6.0); HEMATOCRIT 29 % (33-45); HEMOGLOBIN 9.8 g/dL (11.5-14.8); LYMPHOCYTES # (AUTO) 0.7 /CMM (0.8-4.8); LYMPHOCYTES % (AUTO) 5.7 % (20.0-44.0); MEAN CORPUSCULAR HGB CONC 34 g/dl (31.0-36.0); MEAN CORPUSCULAR VOLUME 100 fL (82-100); MONOCYTES # (AUTO) 0.7 /CMM (0.1-1.30); MONOCYTES % (AUTO) 5.3 % (2.0-12.0); NEUTROPHILS # (AUTO) 11.4 /CMM (1.8-8.9); NEUTROPHILS % (AUTO) 88.5 % (43.0-81.0); PLATELET COUNT (AUTO) 506 /CMM (150-450); RED BLOOD CELL COUNT(AUTO) 2.87 MIL/uL (4.0-5.2); WHITE BLOOD COUNT (AUTO) 12.9 K/uL (4.3-11.0)
[2020-09-25 06:57] LABS: CALCIUM, SERUM 6.7 mg/dL (8.5-10.1); CREATININE 0.5 mg/dL (0.6-1.3); MAGNESIUM 2.3 mg/dL (1.8-2.4); PHOSPHORUS 4.1 mg/dL (2.5-4.9); POTASSIUM 3.5 mmol/L (3.5-5.1)
[2020-09-25 07:20] LABS: THYROID STIMULATING HORMONE 2.39 uIU/mL (0.358-3.74); URIC ACID 4.7 mg/dL (2.6-7.2)
--- NOTE | 2020-09-25 07:53 | NUR ---
MS/RN OPENING NOTE RECEIVED PATIENT FROM LAND DEVELOPMENT MANAGER NURSE. PATIENT IS AWAKE IN HOSPITAL BED A/O X4. NO ACUTE DISTRESS NOTED. PATIENT ON ROOM AIR, TOLERATING WELL NO SOB NOTED, BREATHING EVEN, NON LABORED. ALL SAFETY MEASURES IN PLACE, BED LOCKED AND IN LOWEST POSITION, CALL LIGHT WITHIN REACH. WILL CONTINUE TO MONITOR AND ENSURE SAFETY.
[2020-09-25 08:04] VITALS: BP 94/62
[2020-09-25] MEDS ORDERED: IOHEXOL-300 100 ML VIAL IV ONE (08:44)
[2020-09-25] MEDS: LACTOBACILLUS RHAMNOSUS GG 1 EACH CAP.SPRINK PO SCH (08:45)
[2020-09-25] MEDS: FIDAXOMICIN 200 MG TABLET PO SCH ×2 (08:45→16:24)
[2020-09-25] MEDS: ENSURE CLEAR 237 ML LIQUID (MIX BERRY) PO SCH ×2 (08:45→16:25)
[2020-09-25] MEDS: POTASSIUM CHLORIDE 20 MEQ TAB.PRT.SR PO SCH (08:45)
[2020-09-25] MEDS: PANTOPRAZOLE 40 MG VIAL IV SCH (08:45)
[2020-09-25] MEDS: VANCOMYCIN HCL 125 MG/2.5 ML ORAL.SUSP PO SCH ×2 (08:45→21:36)
[2020-09-25] MEDS ORDERED: CT SWABBABLE VALVE TRANS SET 1 EA INFUS.SET MC ONE (08:45)
[2020-09-25] MEDS: VANCOMYCIN FOR RECTAL ENEMA 500 MG RC SCH ×2 (12:19→21:36)
[2020-09-25 15:52] VITALS: BP 91/63
--- NOTE | 2020-09-25 19:03 | NUR ---
MS/RN CLOSING NOTE PATIENT IS AWAKE IN HOSPITAL BED A/O X4. NO ACUTE DISTRESS NOTED. PATIENT ON ROOM AIR, TOLERATING WELL NO SOB NOTED, BREATHING EVEN, NON LABORED. ALL SAFETY MEASURES IN PLACE, BED LOCKED AND IN LOWEST POSITION, CALL LIGHT WITHIN REACH. ALL NEEDS MET THROUGHOUT THE SHIFT. WILL ENDORSE TO SNUFF MAKER NURSE.
--- NOTE | 2020-09-25 19:44 | NUR ---
MS/TELE/RN RECEIVE PATIENT LYING IN BED IN ROOM AWAKE, ALERT AND ORIENTED, COMFORTABLE , NO SIGNS OF DISTRESS NOTED, CALL LIGHT IN REACH. WILL MONITOR.
[2020-09-25 20:00] VITALS: BP 102/74
--- NOTE | 2020-09-25 20:00 | NUR ---
MS/TELE/RN IV INFILTRATED, REMOVED, INSERTED NEW IV AT LEFT F/A G 20. PATIENT TOLERATED THE PROCEDURE.
[2020-09-25] MEDS: LEVOFLOXACIN 500 MG /D5W 100ML 500 MG in PREMIX 1 EA IV SCH (21:52)
[2020-09-25] MEDS: ENOXAPARIN SODIUM 40 MG/0.4 ML DISP.SYRIN SQ SCH (21:59)
[2020-09-25] MEDS: IV NS 0.9% 1,000 ML IV PRN (23:53)
[2020-09-26] MEDS: METRONIDAZOLE 500MG/ NS 100ML 500 MG in PREMIX 1 EA IV SCH ×3 (02:13→18:17)
[2020-09-26] MEDS: VANCOMYCIN FOR RECTAL ENEMA 500 MG RC SCH ×3 (04:52→21:43)
--- NOTE | 2020-09-26 06:15 | NUR ---
MS/TELE/RN PATIENT IS AWAKE, COMFORTABLE, NO DISTRESS NOTED, CALL LIGHT IN REACH. ALL NEEDS ATTENDED AT THIS TIME, WILL CONTINUE TO MONITOR.
[2020-09-26 06:57] LABS: CALCIUM, SERUM 7.3 mg/dL (8.5-10.1); CREATININE 0.6 mg/dL (0.6-1.3); POTASSIUM 3.8 mmol/L (3.5-5.1)
--- NOTE | 2020-09-26 07:30 | NUR ---
PT RECEIVED RESTING COMFORTABLY IN BED. NO S/S OR C/O PAIN OR DISTRESS NOTED. SIDE RAILS UP X2, CALL LIGHT LEFT WITHIN REACH. WILL CONTINUE PLAN OF CARE.
[2020-09-26 07:57] LABS: BASOPHILS % (AUTO) 0.2 % (0.0-2.0); EOSINOPHILS % (AUTO) 0.1 % (0.0-6.0); HEMATOCRIT 30 % (33-45); HEMOGLOBIN 10.1 g/dL (11.5-14.8); LYMPHOCYTES # (AUTO) 0.7 /CMM (0.8-4.8); LYMPHOCYTES % (AUTO) 4.8 % (20.0-44.0); MEAN CORPUSCULAR HGB CONC 33 g/dl (31.0-36.0); MEAN CORPUSCULAR VOLUME 101 fL (82-100); MONOCYTES # (AUTO) 0.7 /CMM (0.1-1.30); MONOCYTES % (AUTO) 4.6 % (2.0-12.0); NEUTROPHILS % (AUTO) 90.3 % (43.0-81.0); PLATELET COUNT (AUTO) 497 /CMM (150-450); RED BLOOD CELL COUNT(AUTO) 2.98 MIL/uL (4.0-5.2); WHITE BLOOD COUNT (AUTO) 14.3 K/uL (4.3-11.0)
[2020-09-26 08:00] VITALS: BP 103/59
[2020-09-26] MEDS: PANTOPRAZOLE 40 MG VIAL IV SCH (08:55)
[2020-09-26] MEDS: ENSURE CLEAR 237 ML LIQUID (MIX BERRY) PO SCH ×2 (08:55→18:17)
[2020-09-26] MEDS: LACTOBACILLUS RHAMNOSUS GG 1 EACH CAP.SPRINK PO SCH (08:56)
[2020-09-26] MEDS: POTASSIUM CHLORIDE 20 MEQ TAB.PRT.SR PO SCH (09:04)
[2020-09-26] MEDS: VANCOMYCIN HCL 125 MG/2.5 ML ORAL.SUSP PO SCH ×2 (09:05→21:38)
[2020-09-26] MEDS: FIDAXOMICIN 200 MG TABLET PO SCH ×2 (09:23→18:17)
[2020-09-26 16:00] VITALS: BP 94/64
--- NOTE | 2020-09-26 18:46 | NUR ---
CHANGE OF SHIFT REPORT PT RESTING COMFORTABLY IN BED. NO S/S OR C/O PAIN OR DISTRESS NOTED. SIDE RAILS UP X2, CALL LIGHT LEFT WITHIN REACH. PT KEPT CLEAN, DRY, AND COMFORTABLE. NO SIGNIFICANT CHANGES SINCE PREVIOUS SHIFT WILL GIVE REPORT TO NITA RON.
--- NOTE | 2020-09-26 19:30 | NUR ---
MS RN OPENING NOTES: RECEIVED RESDIENT AWAKE IN BED, BED IN LOW POSITION, CALL LIGHTS WITHIN REACH, NO COMPLAIN OF PAIN AND DISCOMFORT AT THIS TIME, PATIENT IS A/O X4, ABLE TO MAKE NEEDS KNOWN, ON CARDIAC DIET, IV LINE ON L FA #20 PATENT AND INTACT, ON F/C WITH URINE OUTPUT OF 45CC LIGHT YELLOW, PATIENT KEPT CLEAN AND DRY, WILL CONTINUE TO MONITOR.
[2020-09-26 20:00] VITALS: BP 94/71
[2020-09-26] MEDS: ENOXAPARIN SODIUM 40 MG/0.4 ML DISP.SYRIN SQ SCH (21:41)
[2020-09-26] MEDS: LEVOFLOXACIN 500 MG /D5W 100ML 500 MG in PREMIX 1 EA IV SCH (23:27)
[2020-09-27] MEDS: HYDROCODONE/APAP 5/325MG TABLET PO PRN ×2 (01:36→22:41)
--- NOTE | 2020-09-27 01:40 | NUR ---
RN NOTES: PATIENT COMPLAIN OF MID ABDOMINAL PAIN, WHEN ASK PS-7, NORCO 5-325 WAS GIVEN FOR MILD TO MODERATE PAIN WILL CONTINUE TO MONITOR.
[2020-09-27] MEDS: METRONIDAZOLE 500MG/ NS 100ML 500 MG in PREMIX 1 EA IV SCH ×3 (02:03→17:58)
[2020-09-27] MEDS: VANCOMYCIN FOR RECTAL ENEMA 500 MG RC SCH ×4 (05:03→20:16)
[2020-09-27 06:01] LABS: BASOPHILS % (AUTO) 0.3 % (0.0-2.0); EOSINOPHILS % (AUTO) 0.3 % (0.0-6.0); HEMATOCRIT 31 % (33-45); HEMOGLOBIN 10.1 g/dL (11.5-14.8); LYMPHOCYTES % (AUTO) 8.1 % (20.0-44.0); MEAN CORPUSCULAR HGB CONC 33 g/dl (31.0-36.0); MEAN CORPUSCULAR VOLUME 101 fL (82-100); MONOCYTES # (AUTO) 0.8 /CMM (0.1-1.30); MONOCYTES % (AUTO) 7.2 % (2.0-12.0); NEUTROPHILS # (AUTO) 9.9 /CMM (1.8-8.9); NEUTROPHILS % (AUTO) 84.1 % (43.0-81.0); PLATELET COUNT (AUTO) 522 /CMM (150-450); RED BLOOD CELL COUNT(AUTO) 3.03 MIL/uL (4.0-5.2); WHITE BLOOD COUNT (AUTO) 11.7 K/uL (4.3-11.0)
[2020-09-27 06:15] LABS: CALCIUM, SERUM 7.3 mg/dL (8.5-10.1); CREATININE 0.4 mg/dL (0.6-1.3); POTASSIUM 3.4 mmol/L (3.5-5.1)
--- NOTE | 2020-09-27 06:54 | NUR ---
MS RN CLOSING NOTES: RESIDENT WAS AWAKE PLACED IN BED COMFORTABLY, NO COMPLAIN OF PAIN AND DISCOMFORT RESIDENT KEPT CLEAN AND DRY ALL NEEDS MET ENDORSE TO INCOMING SHIFT.
[2020-09-27 08:00] VITALS: BP 104/65
[2020-09-27] MEDS ORDERED: POTASSIUM CHLORIDE 20 MEQ TAB.PRT.SR PO ONE (08:00)
--- NOTE | 2020-09-27 08:00 | NUR ---
RN OPENING NOTE RECEIVED PATIENT IN BED, AO X4, ABLE TO RESPONDS ALL STIMULI. DENIES DISTRESS OR DISCOMFORT AT THIS TIME. SKIN IS WARM TO TOUCH, KEEP CLEAN/DRY, INTACT IV SITE. RESPIRATORY EVEN AND UNLABORED ON ROOM. KEPT ELEVATED HOB FOR ENSURE AIRWAY AND ASPIRATION PRECAUTION, ALSO LOWEST BED POSITION. CALL LIGHT WITHIN REACH, WILL CONTINUE TO MONITOR.
[2020-09-27] MEDS: LACTOBACILLUS RHAMNOSUS GG 1 EACH CAP.SPRINK PO SCH (08:54)
[2020-09-27] MEDS: PANTOPRAZOLE 40 MG VIAL IV SCH (08:54)
[2020-09-27] MEDS: ENSURE CLEAR 237 ML LIQUID (MIX BERRY) PO SCH ×2 (08:55→18:13)
[2020-09-27] MEDS: FERROUS SULFATE (325 MG) 325 MG/TAB TABLET PO SCH ×2 (08:55→17:57)
[2020-09-27] MEDS: VANCOMYCIN HCL 125 MG/2.5 ML ORAL.SUSP PO SCH ×2 (08:58→20:17)
[2020-09-27] MEDS: FIDAXOMICIN 200 MG TABLET PO SCH ×2 (08:58→17:57)
[2020-09-27] MEDS ORDERED: POTASSIUM CHLORIDE 20 MEQ TAB.PRT.SR PO SCH (10:00)
[2020-09-27] MEDS: POTASSIUM CHLORIDE 20 MEQ TAB.PRT.SR PO SCH (10:15)
--- NOTE | 2020-09-27 12:54 | NUR ---
PATIENT REFUSED VANCOMYCIN RECTAL ENEMA SAID "I DID THIS MORNING, CHECK WITH CHARLEEN JONES."
[2020-09-27 13:00] VITALS: BP 107/72
--- NOTE | 2020-09-27 18:26 | NUR ---
RN CLOSING NOTE PATIENT IN BED RESTING, REMAINS AO X 4, DENIES PAIN OR DISCOMFORT. SKIN IS WARM TO TOUCH, KEEP CLEAN/DRY, INTACT IV SITE, PATIENT IN HOU AND NO COMPLICATION OBSERVED.. RESPIRATORY EVEN AND UNLABORED ON ROOM AIR. KEPT ELEVATED HOB FOR ENSURE AIRWAY AND ASPIRATION PRECAUTION, ALSO LOWEST BED POSITION FOR SAFETY. PATIENT REFUSED CT OF HEAD, MENTIONED MD. CALL LIGHT WITHIN REACH, WILL ENDORSE LAUNDERETTE ATTENDANT.
[2020-09-27 20:00] VITALS: BP 100/68
--- NOTE | 2020-09-27 20:00 | NUR ---
MS RN OPENING NOTES RECEIVED RESIDENT AWAKE IN BED , BED IN LOW POSITION, CALL LIGHTS WITHIN REACH, ON REG DIET, NO COMPLAIN OF PAIN ANDDISCOMFORT AT THIS TIME,ON RA, NO SOB OR ANY RESPIRATORY DISTRESS WAS OBSERVE, ON HOU CATH WITH URINE OUTPUT OF 60CC YELLOW COLOR, SKIN IS INTACT WITH, IV LINE AT L F/A #20 INFUSING WELL, FOR DIETARY CONSULTATION, RESIDENT KEPT CLEAN AND DRY, WILL CONTINUE TO MONITOR.
[2020-09-27] MEDS: ENOXAPARIN SODIUM 40 MG/0.4 ML DISP.SYRIN SQ SCH (21:52)
[2020-09-27] MEDS: LEVOFLOXACIN 500 MG /D5W 100ML 500 MG in PREMIX 1 EA IV SCH (21:53)
--- NOTE | 2020-09-27 22:41 | NUR ---
RN NOTES PATIENT COMPLAIN OF LOWER ABDOMINAL PAIN PS-7 NORCO -5-325 PO GIVEN FOR MODERATE PAIN.,
[2020-09-28] MEDS: METRONIDAZOLE 500MG/ NS 100ML 500 MG in PREMIX 1 EA IV SCH ×3 (02:13→17:37)
[2020-09-28 06:00] LABS: CALCIUM, SERUM 7.5 mg/dL (8.5-10.1); CREATININE 0.6 mg/dL (0.6-1.3); POTASSIUM 3.5 mmol/L (3.5-5.1)
[2020-09-28 06:10] LABS: BASOPHILS % (AUTO) 0.2 % (0.0-2.0); EOSINOPHILS % (AUTO) 0.2 % (0.0-6.0); HEMATOCRIT 33 % (33-45); LYMPHOCYTES # (AUTO) 1.1 /CMM (0.8-4.8); LYMPHOCYTES % (AUTO) 10.4 % (20.0-44.0); MEAN CORPUSCULAR HGB CONC 33 g/dl (31.0-36.0); MEAN CORPUSCULAR VOLUME 101 fL (82-100); MONOCYTES # (AUTO) 0.6 /CMM (0.1-1.30); MONOCYTES % (AUTO) 6.1 % (2.0-12.0); NEUTROPHILS # (AUTO) 8.6 /CMM (1.8-8.9); NEUTROPHILS % (AUTO) 83.1 % (43.0-81.0); PLATELET COUNT (AUTO) 566 /CMM (150-450); RED BLOOD CELL COUNT(AUTO) 3.26 MIL/uL (4.0-5.2); WHITE BLOOD COUNT (AUTO) 10.3 K/uL (4.3-11.0)
--- NOTE | 2020-09-28 06:46 | NUR ---
MS RN CLOSING NOTES PATIENT WAS SLEEP IN BED COMFORTABLY, EASILY AROUSABLE, BED IN LOW POSITION, CALL LIGHTS WITHIN REACH, NO COMPLAIN OF PAIN AND DISCOMFORT, NO SOB OR ANY RESPIRATORY DISTRESS WAS OBSERVE, ON HOU CATHETER, WITH URINE OUTPUT OF 700CC YELLOW COLOR, KEPT CLEAN AND DRY, ALL NEEDS MET, ENDORSED TO INCOMING SHIFT.
[2020-09-28 08:00] VITALS: BP 107/70
--- NOTE | 2020-09-28 08:00 | NUR ---
RN OPENING NOTE RECEIVED PATIENT IN ROOM, AO X4, ABLE TO RESPONDS ALL STIMULI. DENIES DISTRESS OR DISCOMFORT AT THIS TIME. SKIN IS WARM TO TOUCH, KEEP CLEAN/DRY, INTACT IV SITE. RESPIRATORY EVEN AND UNLABORED ON ROOM. KEPT ELEVATED HOB FOR ENSURE AIRWAY AND ASPIRATION PRECAUTION, ALSO LOWEST BED POSITION. CALL LIGHT WITHIN REACH, WILL CONTINUE TO MONITOR.
[2020-09-28] MEDS: PANTOPRAZOLE 40 MG VIAL IV SCH (09:13)
[2020-09-28] MEDS: VANCOMYCIN HCL 125 MG/2.5 ML ORAL.SUSP PO SCH ×2 (09:13→21:05)
[2020-09-28] MEDS: LACTOBACILLUS RHAMNOSUS GG 1 EACH CAP.SPRINK PO SCH (09:14)
[2020-09-28] MEDS: FERROUS SULFATE (325 MG) 325 MG/TAB TABLET PO SCH ×2 (09:14→17:36)
[2020-09-28] MEDS: POTASSIUM CHLORIDE 20 MEQ TAB.PRT.SR PO SCH (09:14)
[2020-09-28] MEDS: ENSURE CLEAR 237 ML LIQUID (MIX BERRY) PO SCH ×2 (09:15→17:40)
[2020-09-28] MEDS: FIDAXOMICIN 200 MG TABLET PO SCH ×2 (10:24→17:36)
[2020-09-28] MEDS ORDERED: LACT1CAP72 PO (11:40)
[2020-09-28] MEDS ORDERED: FIDA200T PO (11:40)
[2020-09-28] MEDS ORDERED: VANC125C11 PO (11:40)
[2020-09-28] MEDS ORDERED: METR-147 PO (11:40)
[2020-09-28] MEDS ORDERED: LEVO500T90 PO (11:40)
[2020-09-28] MEDS ORDERED: FERR325T28 PO (11:40)
[2020-09-28] MEDS: ONDANSETRON HCL/PF 4 MG/2 ML VIAL IVP PRN ×2 (11:55→23:43)
[2020-09-28] MEDS: HYDROCODONE/APAP 5/325MG TABLET PO PRN ×2 (11:55→23:42)
--- NOTE | 2020-09-28 12:52 | NUR ---
PATIENT NOTICED STARTED VOMITING AND ANXIOUS STATED "I'M NOT ABLE TO GOING HOME TODAY." INFORMED MD REGARDING ABOVE, WHO HELD DISCHARGE.
[2020-09-28 15:45] VITALS: BP 95/77
--- NOTE | 2020-09-28 17:10 | NUR ---
RN CLOSING NOTE PATIENT IN BED RESTING, REMAINS AO X 4. SKIN IS WARM TO TOUCH, KEEP CLEAN/DRY, INTACT IV SITE, PATIENT IN HOU AND NO COMPLICATION OBSERVED. RESPIRATORY EVEN AND UNLABORED ON ROOM AIR. KEPT ELEVATED HOB FOR ENSURE AIRWAY AND ASPIRATION PRECAUTION, ALSO LOWEST BED POSITION FOR SAFETY. ENCOURAGED ORAL INTAKE TOLERATED. CALL LIGHT WITHIN REACH, WILL ENDORSE COST MANAGER.
--- NOTE | 2020-09-28 19:25 | NUR ---
MS RN NOTE DR. MC AT PATIENT'S BED SIDE
--- NOTE | 2020-09-28 19:39 | NUR ---
MS RN OPENING NOTE PATIENT A/OX4; ABLE TO MAKE NEEDS KNOWN. ON ROOM AIR TOLERATING WELL WITH NO SOB. DENIES PAIN OR DISCOMFORT AT THIS TIME. DENIES N/V. SKIN IS INTACT. LFA #20G S/L; PATENT AND INTACT. SAFETY MEASURES IN PLACE: BED IN LOWEST LOCKED POSITION, SIDE RAILS UPX2, CALL LIGHT WITHIN EASY REACH, BED ALARMS ON. PATIENT IS STABLE AT THIS TIME. WILL CONTINUE PLAN OF CARE.
[2020-09-28 20:00] VITALS: BP 102/68
[2020-09-28] MEDS: LEVOFLOXACIN 500 MG /D5W 100ML 500 MG in PREMIX 1 EA IV SCH (21:05)
[2020-09-28] MEDS: ENOXAPARIN SODIUM 40 MG/0.4 ML DISP.SYRIN SQ SCH (21:06)
--- NOTE | 2020-09-28 23:43 | NUR ---
MS RN NOTE - PAIN & NAUSEA PATIENT C/O 10/25 ABDOMINAL PAIN AND NAUSEA. ADMINISTERED NORCO AND ZOFRAN ORDERED. WILL CONTINUE TO ASSES FOR PAIN AND NAUSEA IN 1 HOUR.
[2020-09-29] MEDS: METRONIDAZOLE 500MG/ NS 100ML 500 MG in PREMIX 1 EA IV SCH ×3 (01:19→18:01)
[2020-09-29] MEDS: ONDANSETRON HCL/PF 4 MG/2 ML VIAL IVP PRN ×3 (05:50→18:46)
--- NOTE | 2020-09-29 05:50 | NUR ---
MS RN NOTE - NAUSEA PATIENT HAD SMALL EMESIS X1 AT 0425. ADMINISTERED ZOFRAN ORDERED. WILL CONTINUE TO ASSES FOR N/V IN 30 MINUTES.
[2020-09-29 06:23] LABS: BASOPHILS % (AUTO) 0.2 % (0.0-2.0); EOSINOPHILS % (AUTO) 0.2 % (0.0-6.0); HEMATOCRIT 33 % (33-45); LYMPHOCYTES # (AUTO) 0.9 /CMM (0.8-4.8); LYMPHOCYTES % (AUTO) 7.8 % (20.0-44.0); MEAN CORPUSCULAR HGB CONC 33 g/dl (31.0-36.0); MEAN CORPUSCULAR VOLUME 101 fL (82-100); MONOCYTES # (AUTO) 0.6 /CMM (0.1-1.30); NEUTROPHILS % (AUTO) 86.8 % (43.0-81.0); PLATELET COUNT (AUTO) 566 /CMM (150-450); WHITE BLOOD COUNT (AUTO) 11.5 K/uL (4.3-11.0)
[2020-09-29 06:27] LABS: CALCIUM, SERUM 7.3 mg/dL (8.5-10.1); CREATININE 0.6 mg/dL (0.6-1.3); POTASSIUM 3.6 mmol/L (3.5-5.1)
--- NOTE | 2020-09-29 07:32 | NUR ---
MS RN CLOSING NOTE PATIENT A/OX4; ABLE TO MAKE NEEDS KNOWN. ON ROOM AIR TOLERATING WELL WITH NO SOB. DENIES PAIN OR DISCOMFORT AT THIS TIME. DENIES N/V. SKIN IS INTACT. LFA #20G S/L; PATENT AND INTACT. SAFETY MEASURES IN PLACE: BED IN LOWEST LOCKED POSITION, SIDE RAILS UPX2, CALL LIGHT WITHIN EASY REACH, BED ALARMS ON. PATIENT IS STABLE AT THIS TIME. ENDORSE PLAN OF CARE TO ONCOMING MORNING RN
[2020-09-29 08:00] VITALS: BP 96/73
[2020-09-29] MEDS: ENSURE CLEAR 237 ML LIQUID (MIX BERRY) PO SCH ×2 (08:00→17:00)
--- NOTE | 2020-09-29 08:00 | NUR ---
RN OPENING NOTE PATIENT AWAKE IN BED. A/O X3 AND [place] CITIZ[place] SPEAKING. COMPLAINT OF PAIN AND NAUSEA. PATIENT DOES NOT REQUEST PAIN MEDS. CURRENTLY ON RA WITH NO SOB OR RESPIRATORY DISTRESS PRESENT. NO EDEMA PRESENT. F/C PRESENT AND DRAINING WELL, SKIN IS INTACT. ON BEDREST. HL PRESENT ON L FA 20G. SAFETY MEASURES IN PLACE. SIDE RAILS RAISED. BED LOWERED. CALL LIGHT WITHIN REACH. WILL CONTINUE TO MONITOR.
[2020-09-29] MEDS: PANTOPRAZOLE 40 MG VIAL IV SCH (08:06)
[2020-09-29] MEDS: FERROUS SULFATE (325 MG) 325 MG/TAB TABLET PO SCH ×2 (08:06→16:34)
[2020-09-29] MEDS: LACTOBACILLUS RHAMNOSUS GG 1 EACH CAP.SPRINK PO SCH (08:06)
[2020-09-29] MEDS: POTASSIUM CHLORIDE 20 MEQ TAB.PRT.SR PO SCH (08:06)
[2020-09-29] MEDS: VANCOMYCIN HCL 125 MG/2.5 ML ORAL.SUSP PO SCH ×2 (08:13→21:59)
[2020-09-29] MEDS: BETHANECHOL CHLORIDE (10 MG) 10 MG TABLET PO SCH ×3 (08:13→16:32)
[2020-09-29] MEDS: FIDAXOMICIN 200 MG TABLET PO SCH ×2 (09:45→16:32)
--- NOTE | 2020-09-29 10:00 | NUR ---
RN NOTE PATIENT HAS HAD 2 EMESIS SINCE START OF SHIFT. ZOFRAN TO BE GIVEN PER PROTOCOL. MD NOTIFIED. WILL CONTINUE TO MONITOR.
[2020-09-29] MEDS: ACETAMINOPHEN 325 MG TABLET PO PRN (10:56)
--- NOTE | 2020-09-29 12:00 | NUR ---
RN NOTE ZOFRAN GIVEN TO PATIENT. NO EPISODES OF EMESIS AND NAUSEA IS IMPROVED PER PATIENT. WILL CONTINUE TO MONITOR.
[2020-09-29 16:00] VITALS: BP 98/70
[2020-09-29] MEDS: HYDROCODONE/APAP 5/325MG TABLET PO PRN (16:49)
--- NOTE | 2020-09-29 16:56 | NUR ---
RN NOTE PATIENT REPORTS ABDOMINAL PAIN 11/24 AND REQUESTED ONLY HALF A TABLET OF NORCO. HALF TABLET GIVEN AND OTHER HALF WASTED. WILL CONTINUE TO MONITOR.
[2020-09-29] MEDS ORDERED: DIATR MEGLU/DIATRIZOATE SODIUM 30 ML BOTTLE (GASTROGRAPHIN) ONE (18:22)
--- NOTE | 2020-09-29 18:45 | NUR ---
RN NOTE PATIENT HAD 1 EMESIS EPISODE. ZOFRAN ADMINISTERED. WILL CONTINUE TO MONITOR.
--- NOTE | 2020-09-29 18:54 | NUR ---
RN OPENING NOTE PATIENT AWAKE IN BED. A/O X3 AND [place] SPEAKING. COMPLAINT OF PAIN AND NAUSEA. PAIN MEDS GIVEN PER PROTOCOL. NAUSEA MEDS GIVEN PER PROTOCOL. CURRENTLY ON RA WITH NO SOB OR RESPIRATORY DISTRESS PRESENT. NO EDEMA PRESENT. F/C PRESENT AND DRAINING WELL, SKIN IS INTACT. ON BEDREST. HL PRESENT ON L FA 20G. ROUTINE MEDS GIVEN. SAFETY MEASURES IN PLACE. SIDE RAILS RAISED. BED LOWERED. CALL LIGHT WITHIN REACH. REPORT TO BE GIVEN TO NIGHT NURSE FOR XAVI
--- NOTE | 2020-09-29 19:30 | NUR ---
MS RN OPENING NOTES: RECEIVED RESIDENT AWAKE IN BED, A/O X3, NO COMPLAIN OF PAIN AND DISCOMFORT, NO SOB NOTED, BED IN LOW POSITION, CALL LIGHTS WITHIN REACH, SKIN IS INTACT, WITH IV LINE AT L FA #20 SL, INFUSING WELL. ON HOU CATHETER WITH 60CC URINE RETENTION CLEAR YELLOW, PATIENT IS IN REGULAR DIET, NPO AT THIS TIME DUE TO TO SCHEDULE CT SCAN OF ABDOMEN , PATIENT IS TAKING ORAL CONTRAST, DIET TO RESUME AFTER PROCEDURE, KEPT CLEAN DRY, WILL CONTINUE TO MONITOR.
--- NOTE | 2020-09-29 19:30 | NUR ---
RN OPENING NOTES: RECEIVED RESIDENT AWAKE IN BED, ALERT AND ORIENTED , NO COMPLAIN OF PAIN AND DISCOMFORT, BED IN LOW POSITION, CALL LIGHTS WITHIN REACH, PATIENT HAS EPISODE OF VOMITTIN DURING THE PREVIOUS SHIFT, NO COMPLAIN OF STOMACH UPSET WAS OBSERVED, ON REGULAR DIET, IV LINE L F/A #20 INFUSING WELL, ON HOU CATH WITH URINE RETENTION OF 50CC LIGHT YELLOW IN COLOR, RESIDENT KEPT CLEAN AND DRY, WILL CONTINUE TO MONITOR.
[2020-09-29 20:00] VITALS: BP 105/74
--- NOTE | 2020-09-29 21:30 | NUR ---
RN NOTES: RESIDENT LEFT THE ROOM FOR A SCHEDULE CT SCAN VIA GURNEY ON STABLE CONDITION.
[2020-09-29] MEDS ORDERED: CT SWABBABLE VALVE TRANS SET 1 EA INFUS.SET MC ONE (21:42)
[2020-09-29] MEDS ORDERED: IOHEXOL-300 100 ML VIAL IV ONE (21:42)
[2020-09-29] MEDS ORDERED: IV NS 0.9% 250 ML IV ONE (21:42)
[2020-09-29] MEDS: ENOXAPARIN SODIUM 40 MG/0.4 ML DISP.SYRIN SQ SCH (21:59)
[2020-09-29] MEDS: MORPHINE SULFATE SR 15 MG TABLET.SA PO SCH (22:00)
[2020-09-29] MEDS: LEVOFLOXACIN 500 MG /D5W 100ML 500 MG in PREMIX 1 EA IV SCH (22:34)
--- NOTE | 2020-09-29 22:45 | NUR ---
RN NOTES: RESIDENT CAME BACK TO ROOM FROM CT SCAN PROCEDURE, AWAKE AND ORIENTED, NO COMPLAIN OF PAIN AND DISCOMFORT ON STABLE CONDITION, PLACE IN BED COMFORTABLY, WILL MEDICATION GIVEN.
[2020-09-30] MEDS: METOCLOPRAMIDE HCL 10 MG/2 ML VIAL IV PRN ×2 (01:10→11:55)
--- NOTE | 2020-09-30 01:10 | NUR ---
RN NOTES PT COMPLAINED OF NAUSEA, REGLAN 10 MG IV GIVEN ORDERED, V/S STABLE
[2020-09-30] MEDS: METRONIDAZOLE 500MG/ NS 100ML 500 MG in PREMIX 1 EA IV SCH ×3 (01:25→17:09)
[2020-09-30 06:21] LABS: BASOPHILS % (AUTO) 0.2 % (0.0-2.0); EOSINOPHILS % (AUTO) 0.2 % (0.0-6.0); HEMATOCRIT 34 % (33-45); HEMOGLOBIN 11.4 g/dL (11.5-14.8); LYMPHOCYTES # (AUTO) 0.9 /CMM (0.8-4.8); LYMPHOCYTES % (AUTO) 7.2 % (20.0-44.0); MEAN CORPUSCULAR HGB CONC 33 g/dl (31.0-36.0); MEAN CORPUSCULAR VOLUME 99 fL (82-100); MONOCYTES # (AUTO) 0.4 /CMM (0.1-1.30); MONOCYTES % (AUTO) 3.4 % (2.0-12.0); NEUTROPHILS # (AUTO) 11.5 /CMM (1.8-8.9); PLATELET COUNT (AUTO) 702 /CMM (150-450); RED BLOOD CELL COUNT(AUTO) 3.46 MIL/uL (4.0-5.2); WHITE BLOOD COUNT (AUTO) 12.9 K/uL (4.3-11.0)
[2020-09-30 06:26] LABS: CALCIUM, SERUM 7.8 mg/dL (8.5-10.1); CREATININE 0.6 mg/dL (0.6-1.3); POTASSIUM 4.4 mmol/L (3.5-5.1)
--- NOTE | 2020-09-30 06:49 | NUR ---
MS RN CLOSING NOTES:-[address] IN BED COMFORTABLY, HOB AT 30 DEGREE, BED IN LOW POSITION,CALL LIGHTS WITHIN REACH, NO SOB OR ANY RESPIRATORY DISTRESS, NO COMPLAIN OF PAIN AND DISCOMFORT, DUE MEDS WAS GIVEN, ALL NEEDS MET, ENDORSE TO INCOMING SHIFT.
--- NOTE | 2020-09-30 08:00 | NUR ---
MS RN OPENING NOTES: RECEIVED PATIENT LYING IN BED, AWAKE. A/O X3. ON ROOM AIR - TOLERATING WELL. NO SIGNS OF SOB NOTED. NO DISTRESS AT THIS TIME. IV ACCESS TO LEFT FOREARM #20 - INTACT AND PATENT, SALINE LOCKED. HOU CATHETER IN PLACE AND INTACT, DRAINING CLEAR, YELLOW URINE. SAFETY PRECAUTIONS IMPLEMENTED. CALL LIGHT WITHIN REACH. WILL CONTINUE TO MONITOR.
[2020-09-30] MEDS: PANTOPRAZOLE 40 MG VIAL IV SCH (08:21)
[2020-09-30] MEDS: ENSURE CLEAR 237 ML LIQUID (MIX BERRY) PO SCH ×2 (08:21→17:00)
[2020-09-30] MEDS: LACTOBACILLUS RHAMNOSUS GG 1 EACH CAP.SPRINK PO SCH (08:21)
[2020-09-30] MEDS: VANCOMYCIN HCL 125 MG/2.5 ML ORAL.SUSP PO SCH ×2 (08:21→21:11)
[2020-09-30] MEDS: FERROUS SULFATE (325 MG) 325 MG/TAB TABLET PO SCH ×2 (08:21→16:45)
[2020-09-30] MEDS: MORPHINE SULFATE SR 15 MG TABLET.SA PO SCH ×2 (08:21→21:11)
[2020-09-30] MEDS: POTASSIUM CHLORIDE 20 MEQ TAB.PRT.SR PO SCH (08:22)
[2020-09-30] MEDS: FIDAXOMICIN 200 MG TABLET PO SCH ×2 (08:22→16:45)
[2020-09-30] MEDS: BETHANECHOL CHLORIDE (10 MG) 10 MG TABLET PO SCH ×3 (08:23→16:45)
[2020-09-30 09:15] VITALS: BP 95/68
[2020-09-30 16:10] VITALS: BP 95/68
[2020-09-30] MEDS: PROSOURCE / PROSTAT (PYXIS) 30 ML UDC PO SCH (17:15)
[2020-09-30] MEDS: ONDANSETRON HCL/PF 4 MG/2 ML VIAL IVP PRN (17:24)
--- NOTE | 2020-09-30 18:30 | NUR ---
MS RN CLOSING NOTES: PATIENT CURRENTLY LYING IN BED, AWAKE. A/O X3. ON ROOM AIR - TOLERATING WELL. NO SIGNS OF SOB NOTED. NO DISTRESS AT THIS TIME. PATIENT MULTIPLE EPISODES OF EMESIS. REGLAN ADMINISTERED EARLIER TODAY BUT NO CEASING OF EMESIS. IV ACCESS TO LEFT FOREARM #20 - INTACT AND PATENT, SALINE LOCKED. HOU CATHETER IN PLACE AND INTACT, DRAINING CLEAR, YELLOW URINE - OUTPUT OF 50CC THIS SHIFT. PATIENT KEPT CLEAN AND DRY THROUGHOUT SHIFT. SAFETY PRECAUTIONS IMPLEMENTED. CALL LIGHT WITHIN REACH. WILL ENDORSE TO PATRIOT MISSILE AIR DEFENSE ARTILLERY FOR XAVI.
[2020-09-30] MEDS ORDERED: METOCLOPRAMIDE HCL 10 MG/2 ML VIAL IV PRN (19:30)
[2020-09-30 20:00] VITALS: BP 107/64
[2020-09-30] MEDS: ENOXAPARIN SODIUM 40 MG/0.4 ML DISP.SYRIN SQ SCH (21:13)
[2020-09-30] MEDS: LEVOFLOXACIN 500 MG /D5W 100ML 500 MG in PREMIX 1 EA IV SCH (21:14)
--- NOTE | 2020-09-30 22:11 | NUR ---
RN NOTES: PATIENT WAS GIVEN ROUTINE MORPHINE , AWAKE WITH NO COMPLAIN.
[2020-10-01] MEDS: ACETAMINOPHEN 325 MG TABLET PO PRN (01:49)
[2020-10-01] MEDS: METRONIDAZOLE 500MG/ NS 100ML 500 MG in PREMIX 1 EA IV SCH ×3 (01:50→17:23)
[2020-10-01] MEDS: ONDANSETRON HCL/PF 4 MG/2 ML VIAL IVP PRN (01:59)
--- NOTE | 2020-10-01 02:00 | NUR ---
RN NOTES: RESIDENT COMPLAIN OF THROWING UP AND APPEARS NAUSEOUS, ZOFRAN IV GIVEN
--- NOTE | 2020-10-01 03:10 | NUR ---
RN NOTES: PATIENT COMPLAIN OF MILD HEADACHE AND REQUEST ACETAMINOPHEN 650MG FOR MILD PAIN, OXYGEN GIVEN, AT 2LPM THEN LATER REFUSED TAKING MEDICINE AND DISCARD.
--- NOTE | 2020-10-01 06:40 | NUR ---
RN CLOSING NOTES: PATIENT SLEEP IN BED COMFORTABLY, NO COMPLAIN OF PAIN AND DISCOMFORT, BED IN LOW POSITION, CALL LIGHTS WITHIN REACH, NAUSEOUS X1 WITH NO EPISODE OF VOMITTING, ON REGULAR DIET, IV LINE L F/A #20 INFUSING WELL, ON HOU CATH WITH URINE OUTPUT OF 400CC LIGHT YELLOW IN COLOR, RESIDENT KEPT CLEAN AND DRY ALL NEEDS MET ,ENDORSED TO INCOMING SHIFT.
--- NOTE | 2020-10-01 07:33 | NUR ---
MS RN OPENING NOTES: RECEIVED PATIENT LYING IN BED, AWAKE. A/O X3. SINGLE ENDING MACHINE OPERATOR APARTMENT LEASING CONSULTANT AT BEDSIDE. ON ROOM AIR - TOLERATING WELL. NO SIGNS OF SOB NOTED. NO DISTRESS AT THIS TIME. IV ACCESS TO LEFT FOREARM #20 - INTACT AND PATENT, SALINE LOCKED. HOU CATHETER IN PLACE AND INTACT, DRAINING CLEAR, YELLOW URINE. SAFETY PRECAUTIONS IMPLEMENTED. CALL LIGHT WITHIN REACH. WILL CONTINUE TO MONITOR.
[2020-10-01] MEDS: ENSURE CLEAR 237 ML LIQUID (MIX BERRY) PO SCH ×2 (08:00→16:57)
[2020-10-01 08:23] VITALS: BP 103/72
[2020-10-01] MEDS: PANTOPRAZOLE 40 MG VIAL IV SCH (08:38)
[2020-10-01 08:52] LABS: BASOPHILS % (AUTO) 0.1 % (0.0-2.0); EOSINOPHILS % (AUTO) 0.1 % (0.0-6.0); HEMATOCRIT 35 % (33-45); HEMOGLOBIN 11.6 g/dL (11.5-14.8); LYMPHOCYTES # (AUTO) 0.7 /CMM (0.8-4.8); LYMPHOCYTES % (AUTO) 5.1 % (20.0-44.0); MEAN CORPUSCULAR HGB CONC 33 g/dl (31.0-36.0); MEAN CORPUSCULAR VOLUME 100 fL (82-100); MONOCYTES # (AUTO) 0.5 /CMM (0.1-1.30); MONOCYTES % (AUTO) 3.3 % (2.0-12.0); NEUTROPHILS % (AUTO) 91.4 % (43.0-81.0); PLATELET COUNT (AUTO) 731 /CMM (150-450); RED BLOOD CELL COUNT(AUTO) 3.51 MIL/uL (4.0-5.2); WHITE BLOOD COUNT (AUTO) 14.2 K/uL (4.3-11.0)
[2020-10-01 09:00] LABS: CALCIUM, SERUM 7.6 mg/dL (8.5-10.1); CREATININE 0.7 mg/dL (0.6-1.3)
[2020-10-01] MEDS: FIDAXOMICIN 200 MG TABLET PO SCH ×3 (09:00→16:47)
[2020-10-01] MEDS: PROSOURCE / PROSTAT (PYXIS) 30 ML UDC PO SCH ×2 (09:00→16:47)
[2020-10-01] MEDS: FERROUS SULFATE (325 MG) 325 MG/TAB TABLET PO SCH ×3 (09:00→16:47)
[2020-10-01] MEDS: BETHANECHOL CHLORIDE (10 MG) 10 MG TABLET PO SCH ×4 (09:00→16:47)
[2020-10-01] MEDS: MORPHINE SULFATE SR 15 MG TABLET.SA PO SCH ×3 (09:00→21:00)
[2020-10-01] MEDS: POTASSIUM CHLORIDE 20 MEQ TAB.PRT.SR PO SCH ×2 (09:00→09:55)
[2020-10-01] MEDS: VANCOMYCIN HCL 125 MG/2.5 ML ORAL.SUSP PO SCH ×3 (09:00→21:00)
[2020-10-01] MEDS: LACTOBACILLUS RHAMNOSUS GG 1 EACH CAP.SPRINK PO SCH ×2 (09:00→09:54)
--- NOTE | 2020-10-01 10:08 | NUR ---
MS RN NOTE ATTEMPTED TO GIVE MEDICATION TO PATIENT. AFTER TWO PILLS, PATIENT THREW UP. COULD NOT TOLERATE ANYTHING ELSE.
--- NOTE | 2020-10-01 12:14 | NUR ---
MS RN NOTE PATIENT FEELS TOO NAUSEOUS TO TAKE MEDICATION. STATES SHE WILL JUST THROW IT UP. DID NOT GIVE THE 1300 DOSE OF URECHOLINE 10MG
[2020-10-01 16:15] VITALS: BP 99/76
--- NOTE | 2020-10-01 16:47 | NUR ---
MS RN NOTE PATIENT CANNOT KEEP ANY MEDICATION DOWN AT THIS TIME. UNABLE TO TAKE ANY PO MEDICATION.
--- NOTE | 2020-10-01 18:30 | NUR ---
MS RN CLOSING NOTES: PATIENT CURRENTLY LYING IN BED, AWAKE. A/O X3. ON ROOM AIR - TOLERATING WELL. NO SIGNS OF SOB NOTED. NO DISTRESS AT THIS TIME. PATIENT WAS NOT ABLE TO KEEP ANYTHING DOWN TODAY - FOOD OR MEDICATION. PATIENT HAS ONLY ATE ICE CHIPS THIS SHIFT. IV ACCESS TO LEFT FOREARM #20 - INTACT AND PATENT, SALINE LOCKED. HOU CATHETER IN PLACE AND INTACT, DRAINING CLEAR, YELLOW URINE - OUTPUT OF __CC THIS SHIFT. MEPILEX PLACED ON BONY PROMINENCE ON SACRUM. PATIENT TO BE NPO @ MIDNIGHT FOR 0500 PEG TUBE PLACEMENT TOMORROW MORNING. PATIENT AWARE. PATIENT KEPT CLEAN AND DRY THROUGHOUT SHIFT. SAFETY PRECAUTIONS IMPLEMENTED. CALL LIGHT WITHIN REACH. WILL ENDORSE TO CONSERVATOR ARTIFACTS FOR XAVI.
--- NOTE | 2020-10-01 19:15 | NUR ---
RN ms opening notes Received Pt from morning nurse. Pt is laying in bed comfortably watching TV. Pt is alert and orientedX4. Respiration is normal in room air. NO SOB. No S/S of distress noted. IV site at LFA# 20 is clean, intact and flushes well. Suárez cath is intact and draining yellow urine. Safety precautions is maintained. Bed at low position, brakes locked, side railsupX2, hob elevated and call light is within reach. Will continue to monitor.
[2020-10-01 20:00] VITALS: BP 106/73
--- NOTE | 2020-10-01 21:39 | NUR ---
RN notes Pt refused meds vancocin and ms.contin. Pt informed that Pt feel better now and afraid to take meds will cause nausea. Explained risks and benefits. Pt keep refusing. Will continue to monitor.
[2020-10-01] MEDS: ENOXAPARIN SODIUM 40 MG/0.4 ML DISP.SYRIN SQ SCH (21:43)
--- NOTE | 2020-10-01 21:43 | NUR ---
RN notes Held lovenox 40 mg because Pt is going for Procedure in am (0530 am).
[2020-10-01] MEDS: LEVOFLOXACIN 500 MG /D5W 100ML 500 MG in PREMIX 1 EA IV SCH (21:45)
[2020-10-02 01:08] LABS: BASOPHILS % (AUTO) 0.2 % (0.0-2.0); EOSINOPHILS % (AUTO) 0.1 % (0.0-6.0); HEMATOCRIT 32 % (33-45); HEMOGLOBIN 10.6 g/dL (11.5-14.8); LYMPHOCYTES # (AUTO) 0.7 /CMM (0.8-4.8); LYMPHOCYTES % (AUTO) 5.8 % (20.0-44.0); MEAN CORPUSCULAR HGB CONC 33 g/dl (31.0-36.0); MEAN CORPUSCULAR VOLUME 99 fL (82-100); MONOCYTES # (AUTO) 0.4 /CMM (0.1-1.30); MONOCYTES % (AUTO) 3.7 % (2.0-12.0); NEUTROPHILS # (AUTO) 10.6 /CMM (1.8-8.9); NEUTROPHILS % (AUTO) 90.2 % (43.0-81.0); PLATELET COUNT (AUTO) 761 /CMM (150-450); RED BLOOD CELL COUNT(AUTO) 3.27 MIL/uL (4.0-5.2); WHITE BLOOD COUNT (AUTO) 11.7 K/uL (4.3-11.0)
[2020-10-02] MEDS: METRONIDAZOLE 500MG/ NS 100ML 500 MG in PREMIX 1 EA IV SCH ×3 (01:08→17:30)
[2020-10-02 01:32] LABS: CREATININE 0.8 mg/dL (0.6-1.3); POTASSIUM 4.7 mmol/L (3.5-5.1)
[2020-10-02 01:38] LABS: BILIRUBIN,TOTAL 0.4 mg/dL (0.2-1.0); TOTAL PROTEIN, SERUM 5.5 g/dL (6.4-8.2)
[2020-10-02 01:47] LABS: ALBUMIN 1.4 g/dL (3.4-5.0)
--- NOTE | 2020-10-02 01:49 | NUR ---
RN notes Received a critical lab from lab ([facility]). Critical lab for albumin 1.4. Informed and notified MD regarding a critical lab and also informed Pt is going for PEG placement at 05:30 am. No new order received. Charge nurse is aware and informed. Will continue to monitor.
[2020-10-02 04:47] VITALS: BP 108/77
[2020-10-02] MEDS ORDERED: ANESTHESIA TRAY IN PYXIS 1 EA TRAY MC ONE (04:50)
--- NOTE | 2020-10-02 04:53 | NUR ---
RN notes Pt is going to OR.
--- NOTE | 2020-10-02 04:53 | NUR ---
RN notes Pt is going to OR for PEG insertion with two OR tech.
--- NOTE | 2020-10-02 06:20 | NUR ---
RN notes Pt is back from OR. Pt is alert and orientedX4 and awake. No S/S of distress noted.
--- NOTE | 2020-10-02 06:40 | NUR ---
RN ms closing notes Pt is resting in bed comfortably. Pt is alert and orientedX4. Respiration is normal in room air. NO SOB. No S/S of distress noted. IV site at LFA# 20 is clean, intact and flushes well. Suárez cath is intact and draining yellow urine. Gtube site is clean, intact and dry. Kept Pt clean, dry and comfortable. Safety precautions is maintained. Bed at low position, brakes locked, side railsupX2, hob elevated and call light is within reach. Will endorse to am nurse for XAVI.
[2020-10-02] MEDS: ENSURE CLEAR 237 ML LIQUID (MIX BERRY) PO SCH (07:30)
--- NOTE | 2020-10-02 07:45 | NUR ---
MS RN OPENING NOTES: RECEIVED PATIENT LYING IN BED, AWAKE. A/O X3. S/P PEG PLACEMENT THIS AM - PATIENT IS STABLE. ON ROOM AIR - TOLERATING WELL. NO SIGNS OF SOB NOTED. NO DISTRESS AT THIS TIME. PATIENT STATES SHE HAS MINIMAL PAIN - WILL ADMINISTER PAIN MEDICATION. IV ACCESS TO LEFT FOREARM #20 - INTACT AND PATENT, SALINE LOCKED. HOU CATHETER IN PLACE AND INTACT, DRAINING CLEAR, YELLOW URINE. SAFETY PRECAUTIONS IMPLEMENTED. CALL LIGHT WITHIN REACH. WILL CONTINUE TO MONITOR.
[2020-10-02 08:00] VITALS: BP 94/62
[2020-10-02] MEDS: VANCOMYCIN HCL 125 MG/2.5 ML ORAL.SUSP PO SCH ×2 (09:00→20:39)
[2020-10-02] MEDS: PANTOPRAZOLE 40 MG VIAL IV SCH (10:21)
[2020-10-02] MEDS: FERROUS SULFATE (325 MG) 325 MG/TAB TABLET PO SCH ×2 (10:21→16:22)
[2020-10-02] MEDS: MORPHINE SULFATE SR 15 MG TABLET.SA PO SCH ×2 (10:22→17:25)
[2020-10-02] MEDS ORDERED: MAGNESIUM HYDROXIDE 30 ML UDC GT PRN (10:30)
[2020-10-02] MEDS: BETHANECHOL CHLORIDE (10 MG) 10 MG TABLET GT SCH ×2 (12:33→16:22)
[2020-10-02] MEDS ORDERED: HYDROCODONE/APAP 5/325MG TABLET GT PRN (13:30)
[2020-10-02] MEDS ORDERED: MAG HYDROX/AL HYDROX/SIMETH 30 ML UDC GT PRN (15:30)
[2020-10-02 16:00] VITALS: BP 94/70
[2020-10-02] MEDS: FIDAXOMICIN 200 MG TABLET GT SCH (16:25)
--- NOTE | 2020-10-02 16:26 | NUR ---
MS RN NOTE UNABLE TO SCAN BARCODE FOR FIDAMOXICIN (DIFICID) 200MG. PILL WAS CRUSHED AND GIVEN TO PATIENT VIA G TUBE.
[2020-10-02] MEDS ORDERED: IV D5/0.45 NACL 1,000 ML IV ONE (16:30)
[2020-10-02] MEDS ORDERED: PROSOURCE / PROSTAT (PYXIS) 30 ML UDC GT SCH (17:00)
[2020-10-02] MEDS: ENSURE CLEAR 237 ML LIQUID (MIX BERRY) GT SCH (17:09)
--- NOTE | 2020-10-02 18:34 | NUR ---
MS RN CLOSING NOTES: PATIENT CURRENTLY LYING IN BED, AWAKE. A/O X3. ON ROOM AIR - TOLERATING WELL. NO SIGNS OF SOB NOTED. NO DISTRESS AT THIS TIME. S/P PEG TUBE PLACEMENT - ONLY USING IT FOR MEDS AND WATER AT THIS TIME. FEEDING TO START IN AM - JEVITY 1.2 @ 20ML/HR - ADVANCE TOLERATED TO 45ML/HR. PATIENT DID DRINK SOME CLEAR LIQUID ENSURE AND HALF OF A POPSICLE FOR SOME NUTRITION- TOLERATED WELL. PATIENT STATED SHE FELT WEAK AND DIZZY - FLUIDS ORDERED PER JESS. IV ACCESS TO LEFT FOREARM #20 - INTACT AND PATENT, RUNNING D5 1/2 NS @ 50ML/HR. HOU CATHETER IN PLACE AND INTACT, DRAINING CLEAR, YELLOW URINE - OUTPUT OF 50 CC THIS SHIFT. MEPILEX PLACED ON BONY PROMINENCE ON SACRUM. PATIENT KEPT CLEAN AND DRY THROUGHOUT SHIFT. SAFETY PRECAUTIONS IMPLEMENTED. CALL LIGHT WITHIN REACH. WILL ENDORSE TO WELDING EQUIPMENT SALES REPRESENTATIVE FOR XAVI.
--- NOTE | 2020-10-02 20:00 | NUR ---
MS RN OPENING NOTE RECEIVED PATIENT AWAKE IN BED. A/O X4. PATIENT IS STABLE ON ROOM AIR. NO SOB NOTED. NO S/S OF RESPIRATORY DISTRESS. PT ON BEDREST. PT HAS NO C/O PAIN AT THIS TIME. IV ACCESS IN LFA #20, INFUSING D5 1/2 NS AT 50 ML/HR. IV IS INTACT, PATENT, AND FLUSHING WELL. GTUBE INTACT AND PATENT. HOU CATHETER IN PLACE AND INTACT, DRAINING CLEAR, YELLOW URINE. SAFETY PRECAUTIONS MAINTAINED. BED IN LOWEST LOCKED POSITION, HOB ELEVATED, SIDE RAILS UP X2. CALL LIGHT AND TABLE WITHIN REACH. WILL CONTINUE WITH PLAN OF CARE.
[2020-10-02 20:23] VITALS: BP 102/59
[2020-10-02] MEDS: ENOXAPARIN SODIUM 40 MG/0.4 ML DISP.SYRIN SQ SCH (21:44)
[2020-10-02] MEDS: LEVOFLOXACIN 500 MG /D5W 100ML 500 MG in PREMIX 1 EA IV SCH (21:46)
[2020-10-03] MEDS: METRONIDAZOLE 500MG/ NS 100ML 500 MG in PREMIX 1 EA IV SCH ×3 (01:24→17:26)
[2020-10-03 05:51] LABS: BASOPHILS % (AUTO) 0.3 % (0.0-2.0); EOSINOPHILS % (AUTO) 0.1 % (0.0-6.0); HEMATOCRIT 30 % (33-45); HEMOGLOBIN 9.9 g/dL (11.5-14.8); LYMPHOCYTES # (AUTO) 0.7 /CMM (0.8-4.8); LYMPHOCYTES % (AUTO) 5.6 % (20.0-44.0); MEAN CORPUSCULAR HGB CONC 33 g/dl (31.0-36.0); MEAN CORPUSCULAR VOLUME 100 fL (82-100); MONOCYTES # (AUTO) 0.5 /CMM (0.1-1.30); MONOCYTES % (AUTO) 3.8 % (2.0-12.0); NEUTROPHILS # (AUTO) 11.6 /CMM (1.8-8.9); NEUTROPHILS % (AUTO) 90.2 % (43.0-81.0); PLATELET COUNT (AUTO) 610 /CMM (150-450); RED BLOOD CELL COUNT(AUTO) 3.02 MIL/uL (4.0-5.2); WHITE BLOOD COUNT (AUTO) 12.8 K/uL (4.3-11.0)
[2020-10-03 06:16] LABS: CALCIUM, SERUM 7.3 mg/dL (8.5-10.1); CREATININE 0.7 mg/dL (0.6-1.3); POTASSIUM 3.1 mmol/L (3.5-5.1)
--- NOTE | 2020-10-03 06:31 | NUR ---
MS RN CLOSING NOTE PT IS AWAKE IN BED AT THIS TIME. A/O X4. PATIENT IS STABLE ON ROOM AIR. NO SOB NOTED. NO S/S OF RESPIRATORY DISTRESS. PT ON BEDREST. PT HAS NO C/O PAIN AT THIS TIME. IV ACCESS IN LFA #20, INFUSING D5 1/2 NS AT 50 ML/HR. IV IS INTACT, PATENT, AND FLUSHING WELL. GTUBE INTACT AND PATENT. HOU CATHETER IN PLACE AND INTACT, DRAINING CLEAR, YELLOW URINE. ALL CARE, NEEDS, AND MEDICATIONS ADMINISTERED ANTICIPATED PER ORDER. SAFETY PRECAUTIONS MAINTAINED. BED IN LOWEST LOCKED POSITION, HOB ELEVATED, SIDE RAILS UP X2. CALL LIGHT AND TABLE WITHIN REACH. WILL ENDORSE TO ONCOMING NURSE FOR CONTINUITY OF CARE.
--- NOTE | 2020-10-03 07:29 | NUR ---
MS RN OPENING NOTE PT IS AWAKE IN BED AT THIS TIME. A/O X4. PATIENT IS STABLE ON ROOM AIR. NO SOB NOTED. NO S/S OF RESPIRATORY DISTRESS. PT ON BEDREST. PT HAS NO C/O PAIN AT THIS TIME. IV ACCESS IN LFA #20, INFUSING D5 1/2 NS AT 50 ML/HR. IV IS INTACT, PATENT, AND FLUSHING WELL. GTUBE INTACT AND PATENT. HOU CATHETER IN PLACE AND INTACT, DRAINING CLEAR, YELLOW URINE. ALL CARE, NEEDS, AND MEDICATIONS ADMINISTERED ANTICIPATED PER ORDER. SAFETY PRECAUTIONS MAINTAINED. BED IN LOWEST LOCKED POSITION, HOB ELEVATED, SIDE RAILS UP X2. CALL LIGHT AND TABLE WITHIN REACH AND ANSWERED PROMPTLY
[2020-10-03 07:47] VITALS: BP 90/61
[2020-10-03] MEDS: PANTOPRAZOLE 40 MG/PACK PACK GT SCH (08:58)
[2020-10-03] MEDS: ENSURE CLEAR 237 ML LIQUID (MIX BERRY) GT SCH ×2 (08:58→16:22)
[2020-10-03] MEDS: LACTOBACILLUS RHAMNOSUS GG 1 EACH CAP.SPRINK GT SCH (08:58)
[2020-10-03] MEDS: FERROUS SULFATE (325 MG) 325 MG/TAB TABLET PO SCH ×2 (08:58→16:23)
[2020-10-03] MEDS: POTASSIUM CHLORIDE 20 MEQ POWDER PACKET GT SCH (08:58)
[2020-10-03] MEDS: VANCOMYCIN HCL 125 MG/2.5 ML ORAL.SUSP PO SCH ×2 (09:04→20:29)
[2020-10-03] MEDS: BETHANECHOL CHLORIDE (10 MG) 10 MG TABLET GT SCH ×3 (09:04→16:20)
[2020-10-03] MEDS: FIDAXOMICIN 200 MG TABLET GT SCH ×2 (09:05→16:22)
[2020-10-03] MEDS: MORPHINE SULFATE SR 15 MG TABLET.SA PO SCH ×2 (09:20→20:30)
[2020-10-03] MEDS ORDERED: JEVITY 1.2 CAL 1,000 ML BOTTLE GT PRN (10:00)
--- NOTE | 2020-10-03 12:09 | NUR ---
RN NOTES G-TUBE FEED OF JEVITY 1.2 STARTED AT 1200 AT 20ML/HR. ASPIRATION PRECAUTIONS ENFORCED. WILL INCREASED FEEDING RATE UP TO A GOAL OF 45ML/HR IF TOLERATING FEEDING.
[2020-10-03] MEDS ORDERED: SODIUM CHLORIDE 1000 MG TABLET PO ONE (14:30)
[2020-10-03 16:00] VITALS: BP 99/69
[2020-10-03] MEDS: PROSOURCE / PROSTAT (PYXIS) 30 ML UDC GT SCH (16:23)
--- NOTE | 2020-10-03 18:43 | NUR ---
MS RN CLOSING NOTES PATIENT IN BED AWAKE AND RESTING AT MODERATE HIGH BACKREST POSITION. A/O X4. ABLE TO MAKE NEEDS KNOWN. ON ROOM AIR, TOLERATING WELL, NO SOB NOTED. IV SL IN LFA G#20 INTACT, PATENT AND FLUSHING WELL. G-TUBE INTACT AND PATENT, FEEDING OF JEVITY 1.2 AT 40ML/HR IN PROGRESS AT THIS TIME, TOLERATING WELL. ASPIRATION PRECAUTIONS MAINTAINED. HOU CATHETER IN PLACE AND INTACT, DRAINING CLEAR YELLOW URINE, HOU CARE DONE. SAFETY PRECAUTIONS MAINTAINED: BED IN LOWEST LOCKED POSITION, HOB ELEVATED, SIDE RAILS UP X2. CALL LIGHT AND BEDSIDE TABLE WITHIN REACH. ALL NEEDS AND CARE ATTENDED WELL. WILL ENDORSE XAVI TO ROLL CLAMP OPERATOR NURSE.
[2020-10-03 20:00] VITALS: BP 91/73
--- NOTE | 2020-10-03 20:00 | NUR ---
MS RN OPENING NOTE RECEIVED PATIENT AWAKE IN BED. A/O X4. PATIENT IS STABLE ON ROOM AIR. NO SOB NOTED. NO S/S OF RESPIRATORY DISTRESS. PT ON BEDREST. PT HAS NO C/O PAIN AT THIS TIME. IV ACCESS IN LFA #20. IV IS INTACT, PATENT, AND FLUSHING WELL. GTUBE INTACT AND PATENT, CONTINUOUS FEEDING OF JEVITY 1.2 @ 40 ML/HR. HOU CATHETER IN PLACE AND INTACT, DRAINING CLEAR, YELLOW URINE. SAFETY PRECAUTIONS MAINTAINED. BED IN LOWEST LOCKED POSITION, HOB ELEVATED, SIDE RAILS UP X2. CALL LIGHT AND TABLE WITHIN REACH. WILL CONTINUE WITH PLAN OF CARE.
[2020-10-03] MEDS: LEVOFLOXACIN 500 MG /D5W 100ML 500 MG in PREMIX 1 EA IV SCH (21:21)
[2020-10-03] MEDS: ENOXAPARIN SODIUM 40 MG/0.4 ML DISP.SYRIN SQ SCH (21:25)
[2020-10-04] MEDS: METRONIDAZOLE 500MG/ NS 100ML 500 MG in PREMIX 1 EA IV SCH ×3 (01:42→18:06)
[2020-10-04] MEDS: ONDANSETRON HCL/PF 4 MG/2 ML VIAL IVP PRN ×2 (02:55→10:19)
--- NOTE | 2020-10-04 02:55 | NUR ---
PT REPORTED NAUSEA AND EMESIS X1. PER PT REQUEST, ADMINISTERED ZOFRAN 4 MG IVP Q6H PRN AT THIS TIME. WILL CONTINUE TO MONITOR PT.
[2020-10-04] MEDS: ACETAMINOPHEN 325 MG TABLET PO PRN (05:02)
--- NOTE | 2020-10-04 06:18 | NUR ---
MS RN CLOSING NOTE PT IS AWAKE IN BED AT THIS TIME. A/O X4. PATIENT IS STABLE ON ROOM AIR. NO SOB NOTED. NO S/S OF RESPIRATORY DISTRESS. PT ON BEDREST. PT HAS NO C/O PAIN AT THIS TIME. IV ACCESS IS INTACT, PATENT, AND FLUSHING WELL. GTUBE INTACT AND PATENT. HOU CATHETER IN PLACE AND INTACT, DRAINING CLEAR, YELLOW URINE. ALL CARE, NEEDS, MEDICATIONS, AND TREATMENT ADMINISTERED ANTICIPATED PER ORDER. SAFETY PRECAUTIONS MAINTAINED. BED IN LOWEST LOCKED POSITION, HOB ELEVATED, SIDE RAILS UP X2. CALL LIGHT AND TABLE WITHIN REACH. WILL ENDORSE TO ONCOMING NURSE FOR CONTINUITY OF CARE.
--- NOTE | 2020-10-04 07:41 | NUR ---
MS RN OPENING NOTES RECEIVED PATIENT IN BED AWAKE AND RESTING AT MODERATE HIGH BACK REST POSITION. A/O X4. ABLE TO MAKE NEEDS KNOWN. ON OXYGEN VIA NASAL CANNULA AT 2LPM. NO SOB NOTED. IV SL IN LFA G#20 INTACT, PATENT AND FLUSHING WELL. G-TUBE INTACT AND PATENT, GASTRIC RESIDUAL CHECK, 0 RESIDUAL NOTED. RESUMED FEEDING OF JEVITY STARTED AT 20 ML/HR AT THIS TIME. WILL MONITOR TOLERANCE OF FEEDING, ASPIRATION PRECAUTIONS MAINTAINED. HOU CATHETER IN PLACE AND INTACT, DRAINING CLEAR YELLOW URINE, SAFETY PRECAUTIONS MAINTAINED: BED IN LOWEST LOCKED POSITION, HOB ELEVATED, SIDE RAILS UP X2. CALL LIGHT AND BEDSIDE TABLE WITHIN REACH. WILL CONTINUE TO MONITOR PATIENT'S STATUS.
[2020-10-04 08:00] VITALS: BP 93/55
[2020-10-04] MEDS: LACTOBACILLUS RHAMNOSUS GG 1 EACH CAP.SPRINK GT SCH (08:37)
[2020-10-04] MEDS: PANTOPRAZOLE 40 MG/PACK PACK GT SCH (08:37)
[2020-10-04] MEDS: FERROUS SULFATE (325 MG) 325 MG/TAB TABLET PO SCH ×2 (08:38→17:24)
[2020-10-04] MEDS: FIDAXOMICIN 200 MG TABLET GT SCH ×2 (08:38→17:24)
[2020-10-04] MEDS: VANCOMYCIN HCL 125 MG/2.5 ML ORAL.SUSP PO SCH (08:38)
[2020-10-04] MEDS: POTASSIUM CHLORIDE 20 MEQ POWDER PACKET GT SCH (08:38)
[2020-10-04] MEDS: BETHANECHOL CHLORIDE (10 MG) 10 MG TABLET GT SCH ×3 (08:38→17:24)
[2020-10-04] MEDS: MORPHINE SULFATE SR 15 MG TABLET.SA PO SCH (08:41)
[2020-10-04] MEDS: ENSURE CLEAR 237 ML LIQUID (MIX BERRY) GT SCH ×2 (08:46→17:26)
[2020-10-04] MEDS: PROSOURCE / PROSTAT (PYXIS) 30 ML UDC GT SCH (08:51)
[2020-10-04] MEDS ORDERED: SODIUM CHLORIDE 1000 MG TABLET PO SCH (09:00)
--- NOTE | 2020-10-04 10:24 | NUR ---
RN NOTES PT VOMITED AFTER INGESTING P.O. LIQUID ABOUT 100ML. PRN ZOFRAN 4MG/2ML IVP AT 1019. WILL CONTINUE TO MONITOR AND REASSESS PT.
[2020-10-04 16:00] VITALS: BP 88/68
--- NOTE | 2020-10-04 18:36 | NUR ---
RN NOTES PATIENT FOR DISCHARGED TO [facility] FOR [facility], PICK-UP TIME IS 1999 BY [facility]. CALLED AND REPORT DISCHARGE INSTRUCTIONS TO ARIADNE RODRIGUES. PER LILIA, PT WILL GO TO ROOM 321. WILL ENDORSE.
--- NOTE | 2020-10-04 18:54 | NUR ---
MS RN CLOSING NOTES PATIENT IN BED RESTING AT MODERATE HIGH BACKREST POSITION THIS TIME. A/O X4. ABLE TO MAKE NEEDS KNOWN. ON ROOM AIR, TOLERATING WELL, NO SOB NOTED. IV SL IN LFA G#20 INTACT, PATENT AND FLUSHING WELL. G-TUBE INTACT AND PATENT, FEEDING OF JEVITY 1.2 AT 45ML/HR IN PROGRESS , TOLERATING WELL. ASPIRATION PRECAUTIONS MAINTAINED. HOU CATHETER IN PLACE DRAINING CLEAR YELLOW URINE, HOU CARE DONE. SAFETY PRECAUTIONS MAINTAINED: BED IN LOWEST LOCKED POSITION, HOB ELEVATED, SIDE RAILS UP X2. CALL LIGHT AND BEDSIDE TABLE WITHIN REACH. ALL NEEDS AND CARE ATTENDED WELL. PT FOR DC TO [facility], P/U TIME IS 1999. 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
--- NOTE | 2020-10-04 19:30 | NUR ---
MS RN OPENING NOTES: RECEIVED RESIDENT AWAKE IN BED COMFORTABLY, BED IN LOW POSITION , CALL LIGHTS WITHIN REACH, NO COMPLAIN OF PAIN AND DISCOMFORT AT THIS TIME, RESIDENT OFN HOU CATHETER WITH URINE OUTPUT AT 100CC INFUSING WELL, ON GTUBE FEEDING OF JEVITY 1.2@75ML HR, HOB AT 45 DEGREE, KEPT CLEAN AND DRY, WILL CONTINUE TO MONITOR.
--- NOTE | 2020-10-04 20:30 | NUR ---
MS VORTEX OPERATOR NOTES: PATIENT WAS DISCHARGE TO FACILITY GOING TO [facility] ON STABLE CONDITION, NO COMPALIN OF PAIN AND DISCOMFORT, D/C PAPERS AND MEDICATION WERE ALL EXPLAINED AND UNDERSTOOD, NAME TAG REMOVE, IV LINE REMOVED, PATIENT ON GTUBE FEEDING PLACED CLEAN, PATENT WITH NO SIGN SAVANA INFECTION AROUND THE STOMA, KEPT CLEAN AND DRY, OUT OF THE FACILITY AT 2015
== END 2020-10-04 20:15 | DRG 871 ==
LOC: ER 18:20 → MED 22:34
PROVIDERS: ADMIT Registered Nurse; ATTEND Nurse Practitioner Acute Care
PROC: 0DH63UZ Insertion of Feeding Device into Stomach, Percutaneous Approach (ICD-10-PCS; principal; 2020-10-02)
DX: A41.51 Sepsis due to Escherichia coli [E. coli] (principal); J18.9 Pneumonia, unspecified organism; E43 Unspecified severe protein-calorie malnutrition; D84.9 Immunodeficiency, unspecified; E87.1 Hypo-osmolality and hyponatremia; N39.0 Urinary tract infection, site not specified; C20 Malignant neoplasm of rectum; A09 Infectious gastroenteritis and colitis, unspecified; A04.72 Enterocolitis due to Clostridium difficile, not specified as recurrent; R64 Cachexia; Z68.1 Body mass index [BMI] 19.9 or less, adult; K86.2 Cyst of pancreas; N13.30 Unspecified hydronephrosis; Z20.822 Contact with and (suspected) exposure to COVID-19; Z87.442 Personal history of urinary calculi; Z88.1 Allergy status to other antibiotic agents; Z79.899 Other long term (current) drug therapy; D25.9 Leiomyoma of uterus, unspecified; E86.1 Hypovolemia; T45.1X5A Adverse effect of antineoplastic and immunosuppressive drugs, initial encounter; Y92.9 Unspecified place or not applicable; D53.9 Nutritional anemia, unspecified; K80.20 Calculus of gallbladder without cholecystitis without obstruction; K29.70 Gastritis, unspecified, without bleeding; E87.6 Hypokalemia; R63.0 Anorexia
CPT/HCPCS: 36415; 43246; 70470-TC; 71045-TC; 71260-TC; 74018; 74178; 78306-TC; 80048-TC; 80053-TC; 80061-TC; 80076-TC; 80202-TC; 81001; 82533; 82728-TC; 83540-TC; 83605-TC; 83690-TC; 83735-TC; 84100-TC; 84300-TC; 84443-TC; 84550-TC; 85025-TC; 85610-TC; 85730-TC; 86301; 86850-TC; 87040-TC; 87045-TC; 87081-TC; 87086-TC; 87186-TC; 97112-TC; 97116-TC; 97530-TC; A4216; A9503; C9113; C9803; G0378; J0690; J1650; J1956; J2405; J2543; J2704; J2765; J3370; J3475; J3490; J7030; J7042; J7050; J7060; Q9963; Q9967

== ENCOUNTER 2022-04-18 11:01 | Outpatient (CLI) | payer BC ==
[~2022-04-18 11:01] MED LIST changes: -BETH10TA4 PO; +FERR325T28 PO; +LACT1CAP72 PO; +LEVO500T90 PO
[2022-04-18] MEDS ORDERED: IOHEXOL-300 100 ML VIAL IV ONE (11:18)
[2022-04-18] MEDS ORDERED: IV NS 0.9% 250 ML IV ONE (11:18)
== END 2022-04-18 23:59 | disposition home or self-care (01) ==
LOC: CT 11:01
PROVIDERS: ATTEND Internal Medicine Hematology & Oncology
DX: K80.20 Calculus of gallbladder without cholecystitis without obstruction (principal); N20.0 Calculus of kidney; N13.30 Unspecified hydronephrosis; N28.89 Other specified disorders of kidney and ureter; M79.89 Other specified soft tissue disorders; C20 Malignant neoplasm of rectum; Z90.6 Acquired absence of other parts of urinary tract; Z98.890 Other specified postprocedural states
CPT/HCPCS: 74178; J7050; Q9967